=== PATIENT | female | born 1960 | race Caucasian/White ===

== ENCOUNTER → 2018-08-03 07:40 | Outpatient (CLI) | payer MEDICAID, SELFPAY ==
[2018-08-03 09:02] LABS: Erythrocyte Sedimentation Rate 15 mm/hr (0-30)
[2018-08-03 09:03] LABS: Absolute Lymphocyte Count 2.06 X10^3/ul (0.83-4.51); Absolute Neutrophil Count 2.6 X10^3/uL (2.0-7.7); Basophil# 0.01 X10^3/uL; Basophil% 0.2 % (0-1); Eosinophil# 0.23 X10^3/uL; Eosinophils% 4.4 % (0-5); Hematocrit 42.3 % (37-47); Hemoglobin 13.9 g/dl (12.0-15.0); Lymphocyte # 2.06 X10^3/ul (4.0); Lymphocyte % 39.3 % (19-41); Mean Corp Hgb Conc 32.9 g/gl (32-36); Mean Corpuscular Hgb 30.2 pg (27.0-32.0); Mean Platelet Vol. 9.7 fl (6.2-12.0); Monocyte# 0.36 X10^3/uL; Monocyte% 6.9 % (0-10); Neutrophil # 2.58 X10^3/uL (2.7-7.7); Neutrophil % 49.2 % (47-70); Platelet Count 296 K/mm3 (150-450); RBC Distribution Width CV 12.8 % (11.6-14.6); RBC Distribution Width SD 42.9 fl (35.1-43.9); White Blood Count 5.2 K/mm3 (4.4-11.0)
[2018-08-03 09:04] LABS: POSITIVE COUNT NO; POSITIVE DIFFERENTIAL NO; POSITIVE MORPHOLOGY NO
[2018-08-03 09:07] LABS: Hemoglobin A1c 5.4 % (4.2-6.3)
[2018-08-03 09:20] LABS: T3 Total - Triiodothyronine 1.12 ng/mL (0.6-1.81); Vitamin B12 1447 pg/mL (211-911); Vitamin D,25 Hydroxy 41.9 ng/mL (29.95-100.01)
[2018-08-03 09:23] LABS: ALB/GLOB Ratio 1.2 RATIO (0.9-2.4); AST(SGOT) 20 U/L (15-37); Alanine Aminotransfer ALT/SGPT 36 U/L (13-56); Albumin, Serum 4.1 g/dL (3.2-5.0); Alkaline Phosphatase 116 U/L (45-117); Anion Gap 4 (5-15); BUN 12 mg/dL (7-18); BUN/Creat Ratio 15.6 RATIO (10-20); CRP < 2.90 mg/L (0.0-3.0); Calcium,Total 9.4 mg/dL (8.5-10.1); Chloride 106 mmol/L (98-107); Cholesterol 206 mg/dL (200); Creatinine, Serum 0.77 mg/dL (0.55-1.02); EST Glomerular Filtration Rate 81 mL/min (>60); Est Glom Filt Rate - Afr Amer 98 mL/min (>60); Globulin 3.5 g/dL (2.2-4.2); Glucose 83 mg/dL (74-106); High Density Lipoprotein 64 mg/dL; Iron 123 ug/dL (50-170); Potassium 4.1 mmol/L (3.5-5.1); Protein, Total 7.6 g/dL (6.4-8.2); Sodium Level 142 mmol/L (136-145); T4 Free Direct 0.97 ng/dL (0.76-1.46); Thyroid Stim Hormone (TSH) 0.95 uIU/mL (0.358-3.74); Triglycerides 139 mg/dL; Very Low Density Lipoprotein 28 mg/dL (5-40)
--- OUTSIDE RECORDS SUMMARY | 2018-09-28 01:23 | XMS RPT_ITS ---
:1960 Author Organization [facility] Care Team Providers Name Role Phone Malys, Phyllis Attending Unavailable Malys, Phyllis Primary Care Unavailable Malys, Phyllis Referring Unavailable Malys, Phyllis Attending Unavailable Malys, Phyllis Referring Unavailable Malys, Phyllis Primary Care Unavailable PROBLEMS PROBLEMS DATE TYPE CONDITION / CODE ATTENDING STATUS SOURCE 08/03/2018 Unknown M25.50 - Pain in Malys, Phyllis Active [facility] unspecified joint Community / M25.50(ICD-10) Hospital Repository 08/03/2018 Unknown E61.1 - Iron Malys, Phyllis Active [facility] deficiency / Community E61.1(ICD-10) Hospital Repository 08/03/2018 Unknown R53.83 - Other Malys, Phyllis Active [place] fatigue / Community R53.83(ICD-10) Hospital Repository 08/03/2018 Unknown E55.9 - Vitamin D Malys, Phyllis Active [place] deficiency, Community unspecified / Hospital E55.9(ICD-10) Repository 08/03/2018 Unknown R63.1 - Malys, Phyllis Active [facility] Polydipsia / Community R63.1(ICD-10) Hospital Repository 08/03/2018 Unknown R35.8 - Other Malys, Phyllis Active [place] polyuria / Community R35.8(ICD-10) Hospital Repository 08/03/2018 Unknown E78.5 - Malys, Phyllis Active [facility] Hyperlipidemia, Community unspecified / Hospital E78.5(ICD-10) Repository 08/03/2018 Unknown D64.9 - Anemia, Malys, Phyllis Active [facility] unspecified / Community D64.9(ICD-10) Hospital Repository 08/03/2018 Unknown 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, [address] CBC W/DIFF, AUTOMATED Collected: 08/03/2018 Status: F Source: [place] 7:47 AM [facility] REPOSITORY TYPE CODE TESTS RESULT OUT OF RANGE REFERENCE UNITS LAB L100.1000 4.4-11.0 K/mm3 Normal WBC 5.2 LAB L100.1200 4.2-5.4 M/mm3 Normal RBC 4.60 LAB L100.1300 12.0-15.0 g/dl Normal HGB 13.9 LAB L100.1400 37-47 % Normal HCT 42.3 LAB L100.1500 81-99 fL Normal MCV 92.0 LAB L100.1600 27.0-32.0 pg Normal MCH 30.2 LAB L100.1700 32-36 g/gl Normal MCHC 32.9 LAB L100.1810 11.6-14.6 % Normal RDW CV 12.8 LAB L100.1820 35.1-43.9 fl Normal RDW SD 42.9 LAB L100.1900 150-450 K/mm3 Normal PLT 296 LAB L100.2000 6.2-12.0 fl Normal MPV 9.7 LAB L100.2100 47-70 % Normal NEUT% 49.2 LAB L100.2200 19-41 % Normal LY% 39.3 LAB L100.2300 0-10 % Normal MONO% 6.9 LAB L100.2400 0-5 % Normal EO% 4.4 LAB L100.2500 0-1 % Normal BASO% 0.2 LAB L100.2550 0.0-0.9 % Normal IM GRAN % 0.000 Result Comment: IG% - Immature Granulocytes (promyelocytes, myelocytes and metamyelocytes) > 1% indicates that a LEFT SHIFT is Present. LAB L100.2620 2.0-7.7 X10 3/uL Normal Absolute Neut 2.6 LAB L100.2720 0.83-4.51 X10 3/ul Normal Absolute Lymph 2.06 Performed By: #### L101.9900, L100.0100 #### [facility] [address] [place], [address] HEMOGLOBIN A1C Collected: 08/03/2018 Status: F Source: [place] 7:47 AM [facility] REPOSITORY TYPE CODE TESTS RESULT OUT OF RANGE REFERENCE UNITS LAB L501.9985 4.2-6.3 % Normal HGB A1C 5.4 Performed By: #### L501.9985 #### [facility] [address] [place], [address] T3 TOTAL - TRIIODOTHYRONINE Collected: 08/03/2018 Status: F Source: [place] 7:47 AM [facility] REPOSITORY TYPE CODE TESTS RESULT OUT OF RANGE REFERENCE UNITS LAB L501.9186 0.6-1.81 ng/mL Normal T3 Total 1.12 Performed By: #### L501.9186, L503.0105, L506.1000 #### [facility] [address] [place], [address] VITAMIN B12 Collected: 08/03/2018 Status: F Source: [place] 7:47 AM [facility] REPOSITORY TYPE CODE TESTS RESULT OUT OF REFERENCE UNITS RANGE LAB L503.0105 211-911 pg/mL High Vitamin B12 1447 Performed By: #### L501.9186, L503.0105, L506.1000 #### [facility] [address] [place], [address] VITAMIN D,25 HYDROXY Collected: 08/03/2018 Status: F Source: [place] 7:47 AM [facility] REPOSITORY TYPE CODE TESTS RESULT OUT OF RANGE REFERENCE UNITS LAB L506.1000 29.95-100.01 ng/mL Normal Vitamin D 41.9 25-OH Result Comment: Vitamin D 25(OH) Status Range Deficiency <20 ng/mL (50nmol/L) Insuffciency 20 - 30 ng/mL (50 - 75 nmol/L) Sufficiency 30 - 100 ng/mL (75 - 250 nmol/L) Toxicity >100 ng/mL (>250 nmol/L) Performed By: #### L501.9186, L503.0105, L506.1000 #### [facility] [address] [place], [address] COMPREHENSIVE METABOLIC Collected: 08/03/2018 Status: F Source: [place] [facility] 7:47 AM [facility] REPOSITORY TYPE CODE TESTS RESULT OUT OF RANGE REFERENCE UNITS LAB L501.0100 74-106 mg/dL Normal GLU 83 Result Comment: Please note revised GLUCOSE reference range effective 2017. LAB L501.1000 7-18 mg/dL Normal BUN 12 LAB L501.1100 0.55-1.02 mg/dL Normal CREAT,SERUM 0.77 Result Comment: The validity of the calculated GFR AND GFRAA in patients over 70 years has not been determined. Clinical correlation is essential. LAB L501.1110 >60 mL/min Normal EST GFR 81 Result Comment: Non- GFR Calc LAB L501.1115 >60 mL/min Normal EST GFR - AA 98 Result Comment: GFR Calc LAB L501.1300 10-20 RATIO Normal BUN/CRE 15.6 LAB L501.1500 6.4-8.2 g/dL T Normal PROT 7.6 LAB L501.1800 3.2-5.0 g/dL Normal ALB 4.1 LAB L501.1950 2.2-4.2 g/dL Normal GLOB 3.5 LAB L501.2000 0.9-2.4 RATIO Normal A/G 1.2 LAB L501.2200 8.5-10.1 mg/dL CA Normal 9.4 LAB L501.4100 15-37 U/L Normal AST 20 LAB L501.4305 45-117 U/L Normal ALK P 116 LAB L501.4405 13-56 U/L Normal ALT 36 LAB L501.4600 0.20-1.00 mg/dL T Normal BILI 0.40 LAB L501.5300 136-145 mmol/L NA Normal 142 LAB L501.5600 3.5-5.1 mmol/L K Normal 4.1 LAB L501.5900 98-107 mmol/L CL Normal 106 LAB L501.6100 21.0-32.0 mmol/L Normal CO2 32.0 LAB L501.6200 5-15 Low GAP 4 Performed By: #### L500.4050, L500.4100, L501.6710, L501.9520, L503.6150, L506.0400 #### [facility] [address] [place], [place], [id number] LIPID PROFILE Collected: 08/03/2018 Status: F Source: [place] 7:47 AM [facility] REPOSITORY TYPE CODE TESTS RESULT OUT OF RANGE REFERENCE UNITS LAB L501.4900 200 mg/dL High CHOL 206 Result Comment: <200 mg/dL Desirable 200-240 mg/dL Borderline >240 mg/dL High Risk LAB L501.5000 mg/dL Normal TRIG 139 Result Comment: The drugs N-Acetylcysteine and Metamizole may falsely depress this assay. Serum Triglycerides Reference Interval Normal <150 mg/dL Borderline high 150 - 199 mg/dL High 200 - 499 mg/dL Very High > or = 500 mg/dL LAB L501.6400 mg/dL Normal HDL 64 Result Comment: The drugs N-Acetylcysteine and Metamizole may falsely depress this assay. Reference Range HDL <40 mg/dL Low HDL Cholesterol HDL >or= 60 mg/dL High HDL Cholesterol LAB L501.6500 0-130 mg/dL Normal LDL 114 LAB L501.6600 5-40 mg/dL Normal VLDL 28 Performed By: #### L500.4050, L500.4100, L501.6710, L501.9520, L503.6150, L506.0400 #### [facility] [address] [place], [place], [id number] CRP Collected: 08/03/2018 Status: F Source: [place] 7:47 AM [facility] REPOSITORY TYPE CODE TESTS RESULT OUT OF RANGE REFERENCE UNITS LAB L501.6710 0.0-3.0 mg/L Normal < 2.90 C-REACTIVE PROT Result Comment: C-Reactive Protein (CRP) provides useful information for the diagnosis, therapy and monitoring of inflammatory processes and associated diseases. For the evaluation of Relative Risk for Cardiovascular Disease, a High Sensitivity CRP (HSCRP) should be ordered. Performed By: #### L500.4050, L500.4100, L501.6710, L501.9520, L503.6150, L506.0400 #### [facility] [address] [place], [place], [address] THYROID STIM HORMONE Collected: 08/03/2018 Status: F Source: [place] (TSH) 7:47 AM [facility] REPOSITORY TYPE CODE TESTS RESULT OUT OF RANGE REFERENCE UNITS LAB L501.9520 0.358-3.74 uIU/mL Normal TSH 0.95 Performed By: #### L500.4050, L500.4100, L501.6710, L501.9520, L503.6150, L506.0400 #### [facility] [address] [place], [place], [address] IRON Collected: 08/03/2018 Status: F Source: [place] 7:47 AM [facility] REPOSITORY TYPE CODE TESTS RESULT OUT OF RANGE REFERENCE UNITS LAB L503.6150 50-170 ug/dL Normal IRON 123 Performed By: #### L500.4050, L500.4100, L501.6710, L501.9520, L503.6150, L506.0400 #### [facility] [address] [place], [place], [address] T4 FREE DIRECT Collected: 08/03/2018 Status: F Source: [place] 7:47 AM [facility] REPOSITORY TYPE CODE TESTS RESULT OUT OF RANGE REFERENCE UNITS LAB L506.0400 0.76-1.46 ng/dL Normal T4 FREE 0.97 DIRECT Performed By: #### L500.4050, L500.4100, L501.6710, L501.9520, L503.6150, L506.0400 #### [facility] [address] [place], [place], [address] ABDOMEN/PELVIS WITH Observed: 09/14/2017 Status: F Source: [place] CONTRAST 8:56 AM [facility] REPOSITORY [facility] [address] [place] [address] Abdomen/Pelvis WITH Contrast MR#: [id number] Acct: [id number] Name: FLORENTIN INGRAM Rep #: [id number] : 1960 F 56 From: Mati Helms MD PCP: Phyllis Lujan DO Status: REG CLI Study: Abdomen/Pelvis WITH Contrast Date of Exam: 09/14/17 Exam# [id number] Ordering Dr: Phyllis Lujan DO STUDY: CT ABDOMEN AND PELVIS WITH CONTRAST REASON FOR EXAM: Female, 56 years old. Evaluate for obstruction or narrowing of colon. Pain. RADIATION DOSAGE (If Supplied By Facility): CTDIvol = ( 15.39 ) mGy, DLP = ( 1055.55 ) mGycm TECHNIQUE: Transaxial images were obtained from the dome of the diaphragm to the symphysis pubis without oral contrast. 100CC ml of Isovue 300 contrast was administered. Sagittal and coronal images were reconstructed. Individualized dose optimization techniques were used for this CT. COMPARISON: None. FINDINGS: The visualized lung bases are clear. The visualized portions of the heart and pericardium are within normal limits. There are no calcified gallstones present. The liver is within normal limits. There are no suspicious hepatic lesions. The spleen is normal in size. The pancreas is within normal limits. The adrenal glands are within normal limits. There are no obstructing renal stones. There is no hydronephrosis. There are no focal renal lesions. The patient is status post gastric bypass. There is no bowel obstruction or inflammation. There is a large amount of stool in the colon, consistent with constipation. The appendix is visualized and appears normal. The aorta is normal in caliber. There is no abdominal or pelvic free air, free fluid, fluid collection or lymphadenopathy. There are no destructive osseous lesions. CT/Abdomen/Pelvis WITH Contrast IMPRESSION: No bowel obstruction or inflammation. Normal appendix. Constipation. Please note that this study does not exclude colon cancer. Electronically Signed: Mati Helms, at 23:56 EST Tel , Service support , CC: Phyllis Lujan DO Light Cleaner: Signed ALLERGIES ALLERGIES DATE TYPE / CODE NAME / CODE REACTION SEVERITY SOURCE 06/23/2016 Drug ibuprofen/F0 HARD TIME Unknown [facility] Allergy/4160 [id number](RXN BREATHING [facility] 28705(SNOMED ORM) Repository CT) ENCOUNTERS ENCOUNTERS ADMIT/DISCHARGE ACCOUNT ADMITTING ENCOUNTER LOCATION SOURCE NUMBER CLASS 08/03/2018 [id number] Ambulatory [place] [facility] ing:LAB Repository 09/14/2017 [id number] Ambulatory [place] 2 [facility] ing:CT Repository PAYERS PAYERS ENCOUNTER GUARANTOR PAYER SUBSCRIBER SOURCE 08/03/2018 NEIL A Primary FLORENTIN Uribeoster [id number] Insurance:[employer] TOOLEYDOB: Community [place] y [place]: [id number] [id number] Repository [id number]: 330) Date:[phone] () [address] [place] [id number]: 08/03/2018 Secondary NOT GIVENUNK [facility] Insurance:SELF PAY [facility] Number: Effective Repository Date:2018-08-03 09/14/2017 Neil Primary FLORENTIN Nagel [id number] Hi Insurance:[place] TOOLEYDOB: [facility] [place], y Number: [id number] [address]Txx: [id number] Repository Date:[id number] [address] () [address] [place] [address]ZU: 09/14/2017 Secondary NOT GIVENUNK [place] Insurance:SELF PAY [facility] Number: Effective Repository Date:2017-09-11
== END ==
PROVIDERS: Family Provider Family Medicine; PCP Family Medicine; Referring Provider Family Medicine; Visit Provider Family Medicine
DX: M25.50 Pain in unspecified joint (principal); E61.1 Iron deficiency; R53.83 Other fatigue; E55.9 Vitamin D deficiency, unspecified; R63.1 Polydipsia; R35.8 Other polyuria; E78.5 Hyperlipidemia, unspecified; D64.9 Anemia, unspecified; E01.0 Iodine-deficiency related diffuse (endemic) goiter
CPT/HCPCS: 36415; 80053; 80061; 82306; 82607; 83036; 83540; 84439; 84443; 84480; 85025; 85652; 86140

== ENCOUNTER → 2018-10-02 15:11 | Outpatient (CLI) | payer MEDICAID, SELFPAY ==
--- NOTE | 2018-10-02 15:15 | BI_ITS ---
MAMMOGRAPHY - BILATERAL SCREENING REASON FOR EXAM: Female, 58 years old. Routine annual screening examination. PERTINENT HISTORY: Non-contributory. TECHNIQUE: Digital bilateral breast manan (3D mammographic acquisition) in the CC and MLO projections. 2-D mediolateral oblique (MLO) and craniocaudad (CC) views of both breasts were obtained. CAD: Full Field Digital Mammography with Computer Added Detection was performed. COMPARISON: Comparison is made with prior study dated July 12, 2017 and June 14, 2016. FINDINGS: Breast Composition: There are scattered areas of fibroglandular density. There are no dominant masses or suspicious calcifications. No other significant abnormalities are identified. There has been no significant change since the prior study. BI/SCREENING MAMM (CAD), BILAT IMPRESSION: Stable bilateral screening mammogram. Yearly follow-up mammogram recommended. (A) ASSESSMENT CATEGORY: BIRADS Category 1: Negative. A letter regarding these results will be sent to the patient by the facility within 30 days. Approximately 10% of breast cancers are not detected by mammography. A normal mammogram should not delay biopsy of a clinically suspicious abnormality. [id number] Electronically Signed: Ludwin Miranda MD at 8:56 EST , Service support ,
--- NOTE | 2018-10-02 15:16 | BD_ITS ---
STUDY: DUAL ENERGY X-RAY ABSORPTIOMETRY / DXA REASON FOR EXAM: Female, 58 years old. The patient is postmenopausal. No loss of height. TECHNIQUE: Bone Mineral Density (BMD) measurements of lumbar spine and bilateral hips were obtained. COMPARISON: Comparison is made with prior study dated June 14, 2016. FINDINGS: Lumbar Spine (L1-L4): g/cm2 (1.066) / T-score (-0.9) / Z-score (0.3) Findings are suggestive of normal bone density with a low fracture risk. Left Femur Total: g/cm2 (0.818) / T-score (-1.5) / Z-score (0.6) Left Femoral Neck: g/cm2 (0.828) / T-score (-1.5) / Z-score (-0.3) Right Femur Total: g/cm2 (0.808) / T-score (-1.6) / Z-score (-0.7) Right Femoral Neck: g/cm2 (0.837) / T-score (-1.4) / Z-score (-0.2) The T-Scores on the most recent prior examination were: Lumbar Spine (L1-L4): There has been worsening of bone density since the previous examination. Left Femur Total: which represents a worsening of 0.2%. Right Femur Total: which represents a worsening of 3.5%. BD/Dexa Bone Density Study IMPRESSION: The patient is considered osteopenic as outlined below according to World Rob Organization (WHO) criteria with a moderate fracture risk. There has been worsening of bone density since the previous examination. Reference Information: The T-score is the number of standard deviations above or below the standard which is normal for young adults at their peak bone mineral density. The World Health Organization (WHO) interprets the T-scores as follows: Above -1 Normal bone density Between -1 and -2.5 Osteopenia Equal to / or below -2.5 Osteoporosis As a practical clinical guideline, osteopenia may be graded as follows: Mild -1 through -1.5 Moderate -1.6 through -2.0 Severe -2.1 through -2.4 The Z-score is the number of standard deviations above or below age-matched controls. A Z-score of less than -1.5 would be considered abnormal. References: 1. NIH Osteoporosis and Related Bone Diseases http://www.osteo.org 2. International Society for Clinical Densitometry http://www.iscd.org 3. National Osteoporosis Foundation http://www.nof.org Electronically Signed: Ludwin Miranda MD at 10:19 EST , Service support ,
== END ==
PROVIDERS: Family Provider Family Medicine; PCP Family Medicine; Referring Provider Family Medicine; Visit Provider Family Medicine
DX: Z12.31 Encounter for screening mammogram for malignant neoplasm of breast (principal); M81.0 Age-related osteoporosis without current pathological fracture
CPT/HCPCS: 77063; 77067; 77080

== ENCOUNTER → 2018-10-18 09:04 | Outpatient (CLI) | payer MEDICAID, SELFPAY ==
[2018-10-18 12:49] LABS: Thyroid Stim Hormone (TSH) 0.58 uIU/mL (0.358-3.74)
[2018-10-18 13:03] LABS: T3 Total - Triiodothyronine 0.98 ng/mL (0.6-1.81)
== END ==
PROVIDERS: Family Provider Family Medicine; PCP Family Medicine; Visit Provider Family Medicine
DX: E03.9 Hypothyroidism, unspecified (principal)
CPT/HCPCS: 36415; 84439; 84443; 84480

== ENCOUNTER → 2019-02-01 | Outpatient (CLI) | payer MEDICAID, SELFPAY ==
[2019-02-01 13:03] LABS: Free T3 2.5 pg/mL (2.18-3.98); T4 Free Direct 1.04 ng/dL (0.76-1.46); Thyroid Stim Hormone (TSH) 0.57 uIU/mL (0.358-3.74)
== END | disposition home or self-care (01) ==
LOC: LAB.FUTURE 09:49
PROVIDERS: Family Provider Family Medicine; PCP Family Medicine; Visit Provider Family Medicine
DX: E03.9 Hypothyroidism, unspecified (principal)
CPT/HCPCS: 36415; 84439; 84443; 84481

== ENCOUNTER → 2019-04-02 | Outpatient (CLI) | payer MEDICAID, SELFPAY ==
[2019-04-02 13:12] LABS: Free T3 2.7 pg/mL (2.18-3.98); T4 Free Direct 1.01 ng/dL (0.76-1.46); Thyroid Stim Hormone (TSH) 0.39 uIU/mL (0.358-3.74)
== END | disposition home or self-care (01) ==
LOC: LAB.FUTURE 09:11
PROVIDERS: Family Provider Family Medicine; PCP Family Medicine; Visit Provider Family Medicine
DX: E03.9 Hypothyroidism, unspecified (principal)
CPT/HCPCS: 36415; 84439; 84443; 84481

== ENCOUNTER → 2019-04-15 | Outpatient (CLI) | payer MEDICAID, SELFPAY ==
--- NOTE | 2019-04-15 12:37 | RAD_ITS ---
STUDY: X-RAY - PELVIS AND BILATERAL HIPS REASON FOR EXAM: Female, 58 years old. Bilateral hip pain. Arthritis. TECHNIQUE: 5 views of the pelvis and hips were obtained. COMPARISON: None. FINDINGS: There is a non-specific bowel gas pattern. Normal visualized soft tissue structures. Normal bilateral iliac wings, sacroiliac joints and visualized sacrum. Normal bilateral superior and inferior pubic rami. Normal pubic symphysis. Normal bilateral ischial tuberosities. Normal visualized right femoral head. Normal right acetabulum. Normal right hip joint. Normal visualized left femoral head. Normal left acetabulum. Normal left hip joint. RAD/Hips B/L min 2 views w/ Pelvis IMPRESSION: Normal x-ray examination of the pelvis and bilateral hips. Electronically Signed: Bran Mclaughlin MD at 2:58 EDT , Service support ,
== END | disposition home or self-care (01) ==
LOC: RAD 12:36
PROVIDERS: Family Provider Family Medicine; PCP Family Medicine; Referring Provider Family Medicine; Visit Provider Family Medicine
DX: M25.551 Pain in right hip (principal); M25.552 Pain in left hip
CPT/HCPCS: 73521

== ENCOUNTER → 2019-07-03 10:35 | Outpatient (CLI) | payer MEDICAID, SELFPAY ==
[2019-07-03 13:00] LABS: Free T3 2.6 pg/mL (2.18-3.98); T4 Free Direct 0.94 ng/dL (0.76-1.46); Thyroid Stim Hormone (TSH) 0.68 uIU/mL (0.358-3.74)
== END ==
PROVIDERS: Family Provider Family Medicine; PCP Family Medicine; Visit Provider Family Medicine
DX: E03.9 Hypothyroidism, unspecified (principal)
CPT/HCPCS: 36415; 84439; 84443; 84481

== ENCOUNTER → 2019-07-23 10:05 | Outpatient (CLI) | payer MEDICAID, SELFPAY ==
--- NOTE | 2019-07-23 10:20 | MRI_ITS ---
STUDY: MRI LUMBAR SPINE WITHOUT CONTRAST REASON FOR EXAM: Female, 58 years old. Leg numbness. Back pain. TECHNIQUE: Standardized fat and water weighted pulse sequences were obtained in the sagittal and axial planes. COMPARISON: X-ray dated September 02, 2016. FINDINGS: Lumbar lordosis preserved. No significant scoliosis. Conus medullaris terminates normally at the L1 level. No acute fracture. No dislocation. No bone destruction. Multiple scattered hemangiomas (sagittal image 9 series 2). Normal retroperitoneum. Normal aorta. Normal paraspinal muscles. Sacrum intact. T12-L1: Normal endplates. Normal disc height, hydration and morphology. Normal bilateral facet joints. Normal central canal and bilateral lateral recesses. Normal bilateral intervertebral neural foramina. L1-2: Normal endplates. Normal disc height, hydration and morphology. Normal bilateral facet joints. Normal central canal and bilateral lateral recesses. Normal bilateral intervertebral neural foramina. L2-3: Normal endplates. Mild disc desiccation. Normal bilateral facet joints. Normal central canal and bilateral lateral recesses. Normal bilateral intervertebral neural foramina. L3-4: Mild endplate spondylosis. Central disc protrusion (axial image 13 series 5) with moderate central canal narrowing. Facet joint arthrosis. Bilateral lateral recess narrowing with impingement, left greater than right. Neural foraminal narrowing without impingement. L4-5: Mild endplate spondylosis. Disc bulge, annular fissure asymmetric to the left, with mild central canal narrowing. Facet joint arthrosis. Left lateral recess narrowing with impingement. Neural foraminal narrowing without impingement. L5-S1: Mild/moderate endplate spondylosis. Disc desiccation. Facet joint arthrosis. Normal central canal and bilateral lateral recesses. Neural foraminal narrowing without impingement. Vacuum phenomenon. MRI/Spine Lumbar (Routine) IMPRESSION: Multilevel intervertebral disc disease with central canal narrowing at L3-4 and L4-5 (protrusion at L3-4) Multilevel lateral recess narrowing with impingement of the bilateral descending L4 and left L5 nerve roots Multilevel neural foraminal narrowing without impingement Mild osteoarthritis at L3-4 through L5-S1 Electronically Signed: Simeon Mann DO at 11:50 EST Tel , Service support ,
== END ==
PROVIDERS: Family Provider Family Medicine; PCP Family Medicine; Referring Provider Family Medicine; Visit Provider Family Medicine
DX: M54.16 Radiculopathy, lumbar region (principal)
CPT/HCPCS: 72148

== ENCOUNTER → 2019-10-03 09:34 | Outpatient (CLI) | payer MEDICAID, SELFPAY ==
--- NOTE | 2019-10-03 09:37 | BI_ITS ---
MAMMOGRAPHY - BILATERAL SCREENING REASON FOR EXAM: Female, 59 years old. Routine annual screening examination. PERTINENT HISTORY: Non-contributory. TECHNIQUE: Digital bilateral breast farrukh (3D mammographic acquisition) in the CC and MLO projections. 2-D mediolateral oblique (MLO) and craniocaudad (CC) views of both breasts were obtained. CAD: Full Field Digital Mammography with Computer Added Detection was performed. COMPARISON: Comparison is made with prior study dated March 02, 2019 and July 12, 2017. FINDINGS: Breast Composition: There are scattered areas of fibroglandular density. There are no dominant masses or suspicious calcifications. No other significant abnormalities are identified. There has been no significant change since the prior study. BI/SCREEN MAMM (CAD) W/FARRUKH BILAT IMPRESSION: Stable bilateral screening mammogram. Yearly follow-up mammogram recommended. (A) ASSESSMENT CATEGORY: BIRADS Category 1: Negative. A letter regarding these results will be sent to the patient by the facility within 30 days. Approximately 10% of breast cancers are not detected by mammography. A normal mammogram should not delay biopsy of a clinically suspicious abnormality. [id number] Electronically Signed: Ludwin Miranda, at 10:29 EST , Service support ,
== END ==
PROVIDERS: Family Provider Family Medicine; PCP Family Medicine; Referring Provider Family Medicine; Visit Provider Family Medicine
DX: Z12.31 Encounter for screening mammogram for malignant neoplasm of breast (principal)
CPT/HCPCS: 77063; 77067

== ENCOUNTER → 2019-10-09 08:04 | Outpatient (CLI) | payer MEDICAID, SELFPAY ==
[2019-10-09 12:42] LABS: Absolute Lymphocyte Count 1.42 X10^3/uL (0.83-4.51); Absolute Neutrophil Count 2.3 X10^3/uL (2.0-7.7); Basophil# 0.04 X10^3/uL; Basophil% 0.9 % (0-1); Eosinophil# 0.29 X10^3/uL; Eosinophils% 6.7 % (0-5); Hematocrit 37.4 % (37-47); Hemoglobin 11.9 g/dL (12.0-15.0); Lymphocyte # 1.42 X10^3/ul (4.0); Lymphocyte % 32.7 % (19-41); Mean Corp Hgb Conc 31.8 g/dL (32-36); Mean Corpuscular Hgb 30.4 pg (27.0-32.0); Mean Corpuscular Volume 95.7 fL (81-99); Mean Platelet Vol. 10.5 fl (6.2-12.0); Monocyte# 0.34 X10^3/uL; Monocyte% 7.8 % (0-10); NRBC Flagged by Analyzer 0 % (0-5); Neutrophil # 2.25 X10^3/uL (2.7-7.7); Neutrophil % 51.9 % (47-70); Platelet Count 300 K/mm3 (150-450); RBC Distribution Width CV 12.6 % (11.6-14.6); RBC Distribution Width SD 43.9 fl (35.1-43.9); Red Blood Count 3.91 M/mm3 (4.2-5.4); White Blood Count 4.3 K/mm3 (4.4-11.0)
[2019-10-09 13:02] LABS: ALB/GLOB Ratio 1.2 RATIO (0.9-2.4); AST(SGOT) 36 U/L (15-37); Alanine Aminotransfer ALT/SGPT 70 U/L (12-78); Albumin, Serum 3.6 g/dL (3.4-5.0); Alkaline Phosphatase 101 U/L (50-136); Anion Gap 4 (5-15); BUN 17 mg/dL (7-18); BUN/Creat Ratio 20.3 RATIO (10-20); Calcium,Total 9.2 mg/dL (8.5-10.1); Chloride 110 mmol/L (98-107); Cholesterol 198 mg/dL (200); Creatinine, Serum 0.84 mg/dL (0.55-1.20); EST Glomerular Filtration Rate 73 mL/min (>60); Est Glom Filt Rate - Afr Amer 89 mL/min (>60); Free T3 2.1 pg/mL (2.18-3.98); Globulin 3.1 g/dL (2.3-3.5); Glucose 79 mg/dL (70-110); High Density Lipoprotein 75 mg/dL; Potassium 4.1 mmol/L (3.5-5.1); Protein, Total 6.7 g/dL (6.4-8.2); Sodium Level 143 mmol/L (136-145); T4 Free Direct 0.97 ng/dL (0.76-1.46); Thyroid Stim Hormone (TSH) 1.01 uIU/mL (0.358-3.74); Triglycerides 89 mg/dL; Very Low Density Lipoprotein 18 mg/dL (5-40)
== END ==
PROVIDERS: PCP Family Medicine; Visit Provider Family Medicine
DX: R53.83 Other fatigue (principal); E03.9 Hypothyroidism, unspecified; E78.5 Hyperlipidemia, unspecified; Z51.81 Encounter for therapeutic drug level monitoring
CPT/HCPCS: 36415; 80053; 80061; 84439; 84443; 84481; 85025

== ENCOUNTER 2019-10-17 11:30 | Outpatient (RCR) | payer MEDICAID, SELFPAY ==
--- NOTE | 2019-10-04 16:03 | HP.PTEVAL ---
Patient's Visit Information FLORENTIN INGRAM is a 59 year old F referred to Physical Therapy by MARKO Shane with a diagnosis of LUMBAR STENOSIS WITH NEUROGENIC CLAUDICATION. Date of Evaluation: 10/04/19 Physical Therapist: Danilo Nicholson, PT, Cert MDT, OCS - Visit Plan Frequency: 2x /Week Duration: 4 Weeks Plan: S/P LUMBAR SURGEY 08/21/19 OKAY WEAN BRACE ,PROGRESS LUMBAR ROM MARKELL. PT INTERVENTION DLS ABD/BACK,POSTURAL EX'S,LE FLEXABLITY,BLE STRENGTHENING ,PROGRESS ROM MARKELL - Subjective Findings: This 59 y/o female presents to physical therapy with lumbar stenosis. Patient underwent s/p bilateral posterior microdisectomy L3-4,L4-5 and micodisectomy on 08/21/[address] Minaya [facility] .Patient d/c 08/22/19 with FWW and lumbar brace ,BLT,no lifting more than 5#. Prior to surgery bilateral leg symptoms with parathesia to feet. Pateint MRI showed stenosis,HNP. Patient has prior PT many years ago. Currently,pain right upper thigh /lateral hip ,stabbing/burning pain. Symptoms laying on side going to bed supine-sit. Patient had trauma falling down hector.Aleviating factors moving around,walking. Bowel/bladder -. Coughing/sneezing-. Sleeping affects from surgery. Denies parathesia/tingling. MEDS gabepetin,vicodin. Patient pain affects ADLS' ,housework chores . Pateint surgey affects QOL but improving. SOCIAL: . VOCATION: reired - Pain Bilateral Back Pain Intensity (Out of 10): 0 Pain Intensity Range: 10 Right Hip Pain Intensity (Out of 10): 0 Pain Intensity Range: 10 - Objective POSTURE: mild foward posture. NEURO: denies parathesia/tingling ,reflexes L3-4,L4-5,L5-S1 1/3. INSCION: well approximate. PALAPTION: mild tender paraspinals. GAIT: reciprocal pattern. MMT: quads/hams 3+/5 R ,L 4-/5,hip flexion 4-/5 L, R 3+/5,abd 4-/5 R,L 3+/5,ankle DF L 4-/5,R 4/5. LUMBAR ROM: flexion min loss,extension mod loss,side glides min/mod loss. FLEXABLITY: hams min tight - Special Tests L/S Slump test left side: Negative L/S Slump test right side: Negative L/S Left Straight Leg Raise: Negative L/S Right Straight Leg Raise: Negative Lumbar Standing: Flexion - Mechanical Response: No effect Lumbar Standing: Flexion - Symptoms During Testing: No effect Lumbar Standing: Flexion - Symptoms After Testing: No effect Lumbar Standing: Extension - Mechanical Response: No effect Lumbar Standing: Extension - Symptoms During Testing: No effect Lumbar Standing: Extension - Symptoms After Testing: No effect - Goals Goal 1:: Patient to be Independant with HEP. Goal Time Frame: 4-6 Weeks Goal 2:: Improve posture/body mechanics for ADL's. Goal Time Frame: 4-6 Weeks Goal 3:: Patient decrease pain by 70% or > to improve function with ADL'S Goal Time Frame: 4-6 Weeks Goal 4:: Patient to improve lumbar ROM for function of recovery Goal Time Frame: 4-6 Weeks Goal 5:: Patient increase right leg 4-/5,left leg 4/5 to improve function and ADL'S Goal Time Frame: 4-6 Weeks Goal 6:: Patient improve LFES score by 5-8 points or > to improve QOL Goal Time Frame: 4-6 Weeks - Rehabilitation Potential Physical Therapy Diagnosis: This patient under s/p lumbar microdcompresssion ,microdisectomy L3-4,L4-5 with pain right hip ,decrease ROM lumbar ,strength right leg impairs function and ADLS',thus benifit from PT Rehabilitation Potential: Good - Anticipated Interventions Patient/Client Instruction: Educate patient on: Condition, Plan of Care For the Purpose of:: To decrease pain, To increase ROM, To improve muscle performance and motor function, To improve ability to perform ADL's, To increase tolerance to activity/condition/position, To improve performance and independence with ADL's, To improve ability of physical actions for home/community/work/leisure, To improve health of tissue, To decrease soft tissue restriction, To increase flexibility/ROM, To reduce risk of recurrence, To improve ability to perform tasks related to life management Therapeutic Exercise to Include: Strength training, Body mechanics, Postural training, Flexibilty training, Dynamic Lumbar Stabilization Comment: BLE For the Purpose of:: To decrease pain, To increase ROM, To improve muscle performance and motor function, To improve ability to perform ADL's, To increase tolerance to activity/condition/position, To improve ability of physical actions for home/community/work/leisure, To improve health of tissue, To increase flexibility/ROM, To reduce risk of recurrence, To improve ability to perform tasks related to life management Cryotherapy (ice pack, ice massage): Yes Thermo therapy (hot pack): Yes For the Purpose of:: To decrease pain, To improve nutrient delivery to tissue, To increase oxygenation perfusion Thank you for the opportunity to evaluate your patient. For Medicare and Medicare HMO plans, please review the plan of care and approve it. It will need to be FAXED BACK to us at [phone] for Medicare purposes. For Medicare only, by signing this I certify the plan of care. Please let me know if there are questions or concerns regarding this plan of care. Physician Signature: Date:
--- NOTE | 2019-10-17 12:02 | HP.PTDCSUM ---
HP - PT D/C Summary It has been my pleasure to treat FLORENTIN INGRAM under orders from MARKO Shane, for the diagnosis of LUMBAR STENOSIS WITH NEUROGENIC CLAUDICATION for a total of 4 visit(s). Discharge Date: 10/17/19 Please see the following information for a summary of their discharge status. - Subjective Subjective: Patient reprts doin well no pain - Pain Bilateral Back Pain Intensity (Out of 10): 0 Right Hip Pain Intensity (Out of 10): 0 - Overall Improvement % Improvement: 80 - Objective Objective/Function: POSTURE: WNL. GAIT: reciprocal pattern. NEURO: INTACT. LUMBAR ROM: WFL. MMT: 5/5 QUADS/HAMS ,HIP 4-/5 - Goals Goal 1:: Patient to be Independant with HEP. Goal Progress: Goal Met Goal 2:: Improve posture/body mechanics for ADL's. Goal Progress: Goal Met Goal 3:: Patient decrease pain by 70% or > to improve function with ADL'S Goal Progress: Goal Met Goal 4:: Patient to improve lumbar ROM for function of recovery Goal Progress: Goal Met Goal 5:: Patient increase right leg 4-/5,left leg 4/5 to improve function and ADL'S Goal Progress: Goal Met Goal 6:: Patient improve LFES score by 5-8 points or > to improve QOL Goal Progress: Goal Met - Plan Plan: D/C TO HEP - D/C Information Discharge Comments: HEP MET GOALS If there are questions or concerns regarding this patient's physical therapy, please feel free to call me at [phone]. Thank you for the referral of this patient. Sincerely, Danilo Nicholson, PT, Cert MDT, OCS
== END 2019-10-17 19:00 | disposition home or self-care (01) ==
LOC: PT 11:30
PROVIDERS: PCP Family Medicine; Referring Provider Nurse Practitioner Acute Care; Visit Provider Nurse Practitioner Acute Care
DX: M48.062 Spinal stenosis, lumbar region with neurogenic claudication (principal)
CPT/HCPCS: 97110; 97162

== ENCOUNTER → 2019-11-07 09:16 | Outpatient (CLI) | payer MEDICAID, SELFPAY ==
[2019-11-07 09:16] VITALS: BMI 34.3
--- NOTE | 2019-11-07 09:17 | RAD_ITS ---
STUDY: X-RAY - LEFT HAND REASON FOR EXAM: Hand pain, no specific injury. TECHNIQUE: 3 view(s) of the hand. COMPARISON: None. FINDINGS: There is osteopenia. Normal radiocarpal articulation. Normal distal radioulnar joint. Normal visualized carpal bones. There is mild joint space narrowing of the triscaphe articulation. Normal carpometacarpal articulation of the thumb. Normal second through fifth carpometacarpal joints. Normal metacarpi. Normal metacarpophalangeal joint of the thumb. There is joint space narrowing of the interphalangeal joint of the thumb. Normal proximal and distal phalanges of the thumb. Normal metacarpophalangeal joints of the second through fifth fingers. There is joint space narrowing of the proximal and distal interphalangeal joints of the second through fifth fingers. Normal phalanges of the second through fifth fingers. There is a small capsular calcification at the radial aspect of the third metacarpophalangeal joint. 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 Small capsular calcification of the third metacarpophalangeal joint. Electronically Signed: Akash Rueda MD at 12:30 EST Tel , Service support ,
== END ==
PROVIDERS: PCP Family Medicine; Referring Provider Orthopaedic Surgery; Visit Provider Orthopaedic Surgery
DX: M79.642 Pain in left hand (principal)
CPT/HCPCS: 73130

== ENCOUNTER 2019-11-08 08:52 | Outpatient (RCR) | payer MEDICAID, SELFPAY ==
[2019-11-07 09:53] VITALS: BMI 27.4
--- NOTE | 2019-11-08 14:27 | HP.OTEVAL ---
Patient's Visit Information MARIELY INGRAM is a 59 year old F, referred to Occupational Therapy by Dr. Arabella Feliz DO, with a diagnosis of L RF trigger finger and L hand dupuytren's. Date of Evaluation: 11/08/19 Occupational Therapist: Twyla Morales, OTR/L - Subjective Subjective: Mariely arrived and noted that she has follow-up appointment December [address] Griffin. She noted she saw Dr. Feliz who completed cortisone injection yesterday. She noted that she notices improvement today in hand as yesterday was unable to make full fist and today, she is able to complete close to full fist. She is R hand dominant. 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 She noted increased difficulty with completed working with weights during exercise. - Pain L hand 0 Pain Intensity Range: 3 - Objective Objective/Observation: bruising at injection site; tender with light palpation. Limited ROM and strength. - ROM MP: MF R 0-82, L 0-59; RF R 0-76, L 0-70 PIP: MF R 0-112, L 0-89; RF R0-112, L 0-95 DIP: MF R 0-77, L 0-50; RF R 0-73, L 0-67 ROM Comments: Limited ROM of L hand. 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 Goal:: Mariely to have similar ROM of L vs R hand for RF and MF measurements to promote increased ROM and mobility needed to return to PLOF by d/c. Goal:: Mariely to have no more than 1/10 painw ith repetitive movement of L hand to promote increased movement of RF and MF for ADl/AIDLs by d/c. Goal:: Mariely to be mod I to complete joint protection strategies to decrease risk of furthe rinjury 4/5 trials 80% of the time by d/c. Goal:: Mariely to be (I) to complete daily HEP to promote strength and endurance of L hand for ADL/IADLs 4/5 trials 80% of the time by d/c. - Rehabilitation General Assessment: Mariely completed OT evaluation on this date of 11/08/2019. Completed cortisone injection 11/07/[address] Feliz and has since improved in some ROM and pain management. She noted decrease strength and endurance. Skilled OT warranted for 1x follow up in two weeks. Mariely lives in [place] and would like to complete majority of therapy at home with home program. She was provided home program today and further exercises will be provided in two weeks as needed. Rehabilitation Potential: Good - Anticipated Interventions Anticipated Interventions: A/AAROM/PROM, Strengthening, Joint Protection/Energy Conservation, Ergonomic Education, Fine Motor Coord/[place], ADL Training, Caregiver Training, Home Program - Visit Plan Frequency: 1x/Week Duration: 2 Weeks General Plan: Mariely completed recent cortisone injection due to L RF trigger finger and Dupuytren's in L hand. She has surgery follow-up December 11 and was here for HEP s/p cortisone. She is to follow up in two weeks or sooner if pain occurs for home program adjustment. TEXT: Thank you for the opportunity to evaluate your patient. For Medicare and Medicare HMO plans, please review the plan of care and approve it. It will need to be FAXED BACK to us at [phone] for Medicare purposes. Please let me know if there are questions or concerns regarding this plan of care. Physician Signature: Date:
--- NOTE | 2020-05-07 07:46 | HP.OT.NRP ---
FLORENTIN INGRAM was seen in my office for initial evaluation on 11/08/19. The following Plan of Care was established for this patient: Initial Frequency: 1x/Week Initial Duration: 2 Weeks Anticipated Interventions: A/AAROM/PROM, Strengthening, Joint Protection/Energy Conservation, Ergonomic Education, Fine Motor Coord/Peewee, ADL Training, Caregiver Training, Home Program This patient was last seen in our office 11/08/19. Pertinent comments regarding their Occupational therapy will appear below: Pt was seen for OT eval only- was given HEP and to follow up in two weeks from initial eval- pt did not schedule further apts and is d/c at this time due to time lapse in services. At this point I will be discontinuing this patient from occupational therapy. I would be happy to see this patient again in the future if found appropriate by the physician. Thank you! Esmer Rodriguez, OTR/L, CHT
== END 2019-11-08 19:00 | disposition home or self-care (01) ==
LOC: OT 08:52
PROVIDERS: PCP Family Medicine; Referring Provider Orthopaedic Surgery; Visit Provider Orthopaedic Surgery
DX: M65.342 Trigger finger, left ring finger (principal); M72.0 Palmar fascial fibromatosis [Dupuytren]
CPT/HCPCS: 97165; 97530

== ENCOUNTER → 2020-01-02 08:03 | Outpatient (CLI) | payer MEDICAID, SELFPAY ==
[2019-11-07 09:53] VITALS: BMI 27.4
[2020-01-02 09:54] LABS: Absolute Neutrophil Count 3.3 X10^3/uL (2.0-7.7); Basophil# 0.03 X10^3/uL; Basophil% 0.5 % (0-1); Eosinophil# 0.31 X10^3/uL; Eosinophils% 5.6 % (0-5); Hematocrit 37.3 % (37-47); Lymphocyte % 27.1 % (19-41); Mean Corp Hgb Conc 32.2 g/dL (32-36); Mean Corpuscular Volume 93.3 fL (81-99); Mean Platelet Vol. 9.9 fl (6.2-12.0); Monocyte# 0.39 X10^3/uL; Monocyte% 7.1 % (0-10); NRBC Flagged by Analyzer 0 % (0-5); Neutrophil # 3.29 X10^3/uL (2.7-7.7); Neutrophil % 59.5 % (47-70); Platelet Count 255 K/mm3 (150-450); RBC Distribution Width SD 44.3 fl (35.1-43.9); White Blood Count 5.5 K/mm3 (4.4-11.0)
[2020-01-02 10:09] LABS: Free T3 1.5 pg/mL (2.18-3.98); T4 Free Direct 1.09 ng/dL (0.76-1.46); Thyroid Stim Hormone (TSH) 0.53 uIU/mL (0.358-3.74)
== END ==
PROVIDERS: PCP Family Medicine; Referring Provider Family Medicine; Visit Provider Family Medicine
DX: E03.9 Hypothyroidism, unspecified (principal); D64.9 Anemia, unspecified
CPT/HCPCS: 36415; 84439; 84443; 84481; 85025

== ENCOUNTER 2020-01-21 05:42 | Day surgery (SDC) | payer MEDICAID, SELFPAY ==
[2019-11-07 09:53] VITALS: BMI 27.4
--- NOTE | 2020-01-20 22:15 | HP.PCM_ITS ---
History and Physical Date of Admission: 01/21/20 HISTORY OF PRESENT ILLNESS 59 year old woman presents with worsening triggering in her left long finger and left ring finger. She had steroid injection in April, with some relief. She states the triggering is becoming more of a problem with activities of daily living. Because of the Coronavirus, trigger finger surgery is on hold until the virus is under control. So additional steroid injection was done last month by Dr. Feliz with some relief. She states she is ready for surgery since she is not interested in repeated steroid injections in the future. She presents at this time for further evaluation and treatment. She denies trauma. PAST MEDICAL HISTORY Trigger finger, left ring finger Trigger finger, left middle finger Carpal tunnel syndrome, bilateral Trigger finger, right ring finger Arthritis Back problem Gout Hypothyroid Osteoarthritis Vitamin deficiency PAST SURGICAL HISTORY gastric bypass hysterectomy back surgery carpal tunnel surgery trigger finger release ALLERGIES celecoxib [From Celebrex] ibuprofen MEDICATIONS Cholecalciferol (VIT D3) [Vitamin D] Multivitamin [Daily Multiple Vitamin] Polyethylene Glycol 3350 [Miralax] diclofenac s levothyroxine omeprazole FAMILY HISTORY Mother - Rheumatoid arthritis, Hypertension, Melanoma, Skin cancer, Thyroid disorder Father - Diabetes, Cancer, Arthritis, Heart disease Brother - Heart disease, High cholesterol Daughter - Thyroid disorder SOCIAL HISTORY Smoking Status: Former smoker REVIEW OF SYSTEMS General - Denies fever, fatigue, and weight loss. Eyes - Denies cataracts and glaucoma. ENT - Denies nasal congestion and sore throat. Endocrine - Denies excessive thirst and urination. Has thyroid disease. Skin - Denies suspicious lesions and skin cancer. Musculoskeletal - Has joint pain, joint stiffness, weakness of muscles and joints, and arthritis. Denies back pain. Has left long trigger finger and left ring trigger finger. Had bilateral carpal tunnel surgery. Had right ring trigger finger release. Neuro - Denies headaches. Cardiovascular - Denies chest pain, fatigue, and shortness of breath with exertion. Psych - Denies anxiety and depression. Respiratory - Denies chronic cough and shortness of breath. Gastrointestinal - Denies nausea, vomiting, diarrhea, and constipation. Hematologic - Denies abnormal bruising and bleeding. Genitourinary - Denies hematuria and urinary frequency. PHYSICAL EXAMINATION General - Alert and Oriented. HEENT - PERRL. EOMI. Throat is clear. Neck - Supple and nontender. No cervical adenopathy. Lungs - Clear to auscultation. Heart - Regular rate and rhythm. Abdomen - Soft and nondistended. Extremities - FROM. No axillary adenopathy. Radial pulses are palpable. Fingers are warm with good capillary refill. Minimal swelling seen. Patient can make a fist. No evidence of acute triggering today involving the left long finger and left ring finger. No audible clicking noted today. There is thickening in the area of the A1 alma in the distal palmar crease with some mild tenderness to palpation. Palm is soft. No sensory deficits. Neuro - CN II-XII grossly intact. Psych - Normal mood and affect. ASSESSMENT 1. Left long trigger finger. 2. Left ring trigger finger. 3. Family history of skin cancer. 4. Former smoker. PLAN Recommend incision tendon sheath A1 alma to release triggering of left long finger and left ring finger. Surgery can be done on an outpatient basis under tourniquet control with B[place] Block anesthesia. Postoperatively, a bulky dressing will be placed in the palm. Will encourage range of motion exercises to minimize stiffness. Because of the Coronavirus, the surgery is on hold since it is not life threate aries. Once the virus has been controlled, will schedule the surgery. Patient was informed of the risks and complications of the procedure including alternatives to surgery. These were discussed with the patient personally. Patient voices understanding and wishes to proceed. Some of the risks and complications were included in a form from the [employer]. Some of the risks and complications that were discussed included but were not inclusive of failure to diagnose including symptom relief, pain, infection, numbness, stiffness, loss of digit, RSD (CRPS), need for further surgery, contracture, and wound healing problems.
[2020-01-21 06:20] VITALS: BP 141/74; PULSE 60; RESP 18; TEMP 36.8; O2SAT 100; BMI 28.7
[2020-01-21] MEDS: Cefazolin 2 GM in 0.9% Normal Saline 100 ML IV (07:28)
[2020-01-21] MEDS: Mupirocin Ointment 22gm Tube 1 APPLIC (08:06)
--- NOTE | 2020-01-21 08:13 | PCM.OPRPT ---
Report of Operation Date of Procedure: 01/21/20 Pre-Operative Diagnosis: 1. Left long trigger finger. 2. Left ring trigger finger. 3. Family history of skin cancer. 4. Former smoker. Post-Operative Diagnosis: Same. Surgery/Procedure Performed:: 1. Incision tendon sheath for trigger finger left long finger. 2. Incision tendon sheath for trigger finger left ring finger. Description of Surgical Findings:: 59 year old woman presents with worsening triggering in her left long finger and left ring finger. She had steroid injection in April, with some relief. She states the triggering is becoming more of a problem with activities of daily living. Because of the Coronavirus, trigger finger surgery is on hold until the virus is under control. So additional steroid injection was done last month by Dr. Feliz with some relief. She states she is ready for surgery since she is not interested in repeated steroid injections in the future. She denies trauma. Patient was informed of the risks and complications of the procedure including alternatives to surgery. These were discussed with the patient personally. Patient voices understanding and wishes to proceed. Some of the risks and complications were included in a form from the [employer]. Some of the risks and complications that were discussed included but were not inclusive of failure to diagnose including symptom relief, pain, infection, numbness, stiffness, loss of digit, RSD (CRPS), need for further surgery, contracture, and wound healing problems. Total tourniquet time - 28 minutes. microstrategy architect developer: None Type of Anesthesia:: Block,[place] Specimen's removed: None. Drains: None. Estimated Blood Loss (mL): 2 ml. Description of Procedure: Patient was taken to OR in supine position and [place] Block anesthesia was administered with the tourniquet inflated to 250 mmHg. The left upper extremity was prepped and draped in the usual fashion. SCD's were placed for DVT prophylaxis. Perioperative antibiotics were given intravenously. Horizontal markings were made in the distal palmar crease area to the left long finger and left ring finger. Using xylocaine with epinephrine, the markings were infiltrated. After waiting 5 minutes for the anesthetic to take effect, horizontal incisions were made first in the ring finger and then secondly the long finger. Dissection was carried down to the tendon sheath A1 alma. Thickened alma was seen. Increased inflammation was seen. The dissection was done longitudinally to minimize injury to the digital nerves. Under direct vision and using a scalpel, an incision was made through the A1 alma up to the beginning of the A2 alma. The flexor tendons were able to glide very easily without clinical evidence of further tethering. I then proceeded with the long finger. A horizontal incision was made in the distal palmar crease and dissection was carried down to the tendon sheath A1 alma. Thickened alma was seen. Increased inflammation was seen. The dissection was done longitudinally to minimize injury to the digital nerves. Under direct vision and using a scalpel, an incision was made through the A1 alma up to the beginning of the A2 alma. The flexor tendons were able to glide very easily without clinical evidence of further tethering. The tourniquet was released after 28 minutes. Hemostasis was obtained with gentle pressure. The incisions were closed with 5-0 Nylon simple interrupted sutures and vertical mattress interrupted sutures. Antibiotic ointment was applied to the suture line followed by Xeroform gauze and 2x2 gauze followed by 2 inch Maria R wrap. Patient tolerated the procedure well and was sent to PACU in satisfactory condition. Patient will be sent home on antibiotics and pain medication. She will keep her left hand elevated during the initial postoperative period. Patient will followup in a week for a wound check and for discussion of the pathology report . The sutures will be removed in two weeks. Grafts/Implants Used: None. - Complications None. - Admit VTE Documentation VTE Present on Admission: No VTE Mechan Device Prophylaxis: SCD's VTE Pharm Prophylaxis ordered?: No Surgery Charges CPT - 56925 ICD-10 - M65.332, Z80.8, Z87.891 09524 M65.342, Z80.8, Z87.891
[2020-01-21 08:15] VITALS: BP 125/66; BP 141/74; PULSE 77; RESP 16; TEMP 36.2; O2SAT 97
[2020-01-21 08:20] VITALS: BP 129/69; BP 141/74; PULSE 68; RESP 16; O2SAT 96
[2020-01-21 08:25] VITALS: BP 125/72; BP 141/74; PULSE 67; RESP 16; O2SAT 96
--- NOTE | 2020-01-21 08:27 | PCM.DC ---
You will use the following diet at home:: No restrictions Discharge Activity: May not drive while taking narcotic pain medications., May Shower - wear plastic bag over left hand when showerin., - - elevate left hand when sitting. no heavy lifting. May shower in (days): 1 - wear plastic bag over left hand when showering. May resume sexual activity in: No Restrictions Weight Bearing Status: Weight bearing as tolerated Lifting Restrictions: 20 lbs. Keep extremity elevated above heart level: Left Arm Call your doctor if your incision/area has: Continuous Slow Oozing, Sudden Increased Bleeding, Increased Pain/ Swelling, Increased Redness, Foul Smelling Discharge, Swelling at the incision site Call your doctor if you observe: Fever of 101 or Higher, Coldness, Increased Pain, Shortness of breath, Chest pain, Calf discomfort, Uncontrolled pain Suture Line Care: - - after dressing is removed in office, apply antibiotic ointment to suture line daily. Change Dressing in (Days):: 7 - will remove in office. Cleanse incision/area with: - - wear plastic bag over left hand when showering. Allergies/Adverse Reactions: Allergies celecoxib [From Celebrex] Allergy (Verified 01/21/20 06:16) dizziness ibuprofen Allergy (Verified 01/21/20 06:16) HARD TIME BREATHING Medications to take at Discharge Cholecalciferol (VIT D3) [Vitamin D3] 5,000 unit PO DAILY 06/23/16 Multivitamin [Daily Multiple Vitamin] 1 ea PO DAILY 06/23/16 Polyethylene Glycol 3350 [Miralax] 17 gm PO DAILY 06/23/16 diclofenac sodium 50 mg tablet,delayed release 50 mg PO BID 11/07/19 levothyroxine 75 mcg capsule 37.5 mcg PO DAILY 11/07/19 omeprazole 40 mg capsule,delayed release 40 mg PO DAILY 11/07/19 Liothyronine Sodium 5 mcg PO DAILY 01/16/20 Cefadroxil [Duricef] 500 mg PO BID #8 cap 01/21/20 Lactobacillus Acidophilus/Fos [Acidophilus Probiotic Tablet] 1 ea PO BID #10 tab 01/21/20 Oxycodone HCl/Acetaminophen [Percocet 5/325] 1 tab PO Q6H PRN PRN 7 Days #28 tab 01/21/20 The following prescriptions were given: Lactobacillus Acidophilus/Fos [Acidophilus Probiotic Tablet] 1 ea PO BID #10 tab Transmission Status: Received by [facility] Cefadroxil [Duricef] 500 mg PO BID #8 cap Transmission Status: Received by [facility] Oxycodone HCl/Acetaminophen [Percocet 5/325] 1 tab PO Q6H PRN PRN 7 Days #28 tab PRN Reason: Pain Score 4-5/10 Transmission Status: Received by [facility] Primary Care Physician: Phyllis Lujan DO [Primary Care Provider] - Test Results: Test results from this visit will be discussed in further detail at your follow-up appointment, if applicable. Please Follow Up With: Danilo Griffin MD When: one week. call [phone] for appt. Proposed Discharge Date: 01/21/20
[2020-01-21 08:30] VITALS: BP 133/77; BP 141/74; PULSE 68; RESP 16; TEMP 36.6; O2SAT 96
[2020-01-21 09:21] VITALS: BP 141/74
== END 2020-01-21 09:33 | disposition home or self-care (01) ==
LOC: SDC 05:43 → AC 05:43
PROVIDERS: PCP Family Medicine; Referring Provider Surgery; Visit Provider Surgery
PROC: (CPT 26055; principal; 2020-01-21 07:20)
DX: M65.332 Trigger finger, left middle finger (principal); M65.342 Trigger finger, left ring finger; Z80.8 Family history of malignant neoplasm of other organs or systems; Z11.59 Encounter for screening for other viral diseases; G56.03 Carpal tunnel syndrome, bilateral upper limbs; M19.90 Unspecified osteoarthritis, unspecified site; M10.9 Gout, unspecified; E03.9 Hypothyroidism, unspecified; K58.9 Irritable bowel syndrome, unspecified; K21.9 Gastro-esophageal reflux disease without esophagitis; Z86.2 Personal history of diseases of the blood and blood-forming organs and certain disorders involving the immune mechanism; Z78.0 Asymptomatic menopausal state; Z79.899 Other long term (current) drug therapy; Z87.891 Personal history of nicotine dependence
CPT/HCPCS: 26055 ×2; 87635; G2023; J7120; U0002

== ENCOUNTER → 2020-03-16 08:40 | Outpatient (CLI) | payer MEDICAID, SELFPAY ==
[2020-01-29 10:38] VITALS: BMI 28.7
[2020-03-16 13:21] LABS: Free T3 2.1 pg/mL (2.18-3.98); T4 Free Direct 0.94 ng/dL (0.76-1.46); Thyroid Stim Hormone (TSH) 0.71 uIU/mL (0.358-3.74)
== END ==
PROVIDERS: PCP Family Medicine; Visit Provider Family Medicine
DX: E03.9 Hypothyroidism, unspecified (principal)
CPT/HCPCS: 36415; 84439; 84443; 84481

== ENCOUNTER → 2020-05-21 09:12 | Outpatient (CLI) | payer MEDICAID, SELFPAY ==
[2020-01-29 10:38] VITALS: BMI 28.7
[2020-05-21 11:59] LABS: Absolute Lymphocyte Count 1.24 X10^3/uL (0.83-4.51); Basophil# 0.03 X10^3/uL; Basophil% 0.6 % (0-1); Eosinophil# 0.28 X10^3/uL; Eosinophils% 5.7 % (0-5); Hematocrit 35.9 % (37-47); Hemoglobin 11.4 g/dL (12.0-15.0); Lymphocyte # 1.24 X10^3/ul (4.0); Lymphocyte % 25.3 % (19-41); Mean Corp Hgb Conc 31.8 g/dL (32-36); Mean Corpuscular Hgb 30.2 pg (27.0-32.0); Monocyte# 0.38 X10^3/uL; Monocyte% 7.7 % (0-10); NRBC Flagged by Analyzer 0 % (0-5); Neutrophil # 2.98 X10^3/uL (2.7-7.7); Neutrophil % 60.7 % (47-70); Platelet Count 329 K/mm3 (150-450); RBC Distribution Width CV 12.4 % (11.6-14.6); RBC Distribution Width SD 42.8 fl (35.1-43.9); Red Blood Count 3.78 M/mm3 (4.2-5.4); White Blood Count 4.9 K/mm3 (4.4-11.0)
[2020-05-21 12:15] LABS: Vitamin B12 986 pg/mL (211-911)
[2020-05-21 12:33] LABS: ALB/GLOB Ratio 1.2 RATIO (0.9-2.4); AST(SGOT) 31 U/L (15-37); Alanine Aminotransfer ALT/SGPT 53 U/L (13-56); Albumin, Serum 3.6 g/dL (3.2-5.0); Alkaline Phosphatase 95 U/L (45-117); Anion Gap 8 (5-15); BUN 21 mg/dL (7-18); BUN/Creat Ratio 22.8 RATIO (10-20); Calcium,Total 8.8 mg/dL (8.5-10.1); Chloride 108 mmol/L (98-107); Creatinine, Serum 0.92 mg/dL (0.55-1.02); EST Glomerular Filtration Rate 66 mL/min (>60); Est Glom Filt Rate - Afr Amer 79 mL/min (>60); Free T3 1.6 pg/mL (2.18-3.98); Globulin 2.9 g/dL (2.2-4.2); Glucose 71 mg/dL (74-106); Iron 103 ug/dL (50-170); Potassium 4.4 mmol/L (3.5-5.1); Protein, Total 6.5 g/dL (6.4-8.2); Sodium Level 140 mmol/L (136-145); T4 Free Direct 0.88 ng/dL (0.76-1.46); Thyroid Stim Hormone (TSH) 0.38 uIU/mL (0.358-3.74)
== END ==
PROVIDERS: PCP Family Medicine; Visit Provider Family Medicine
DX: R53.83 Other fatigue (principal); E03.9 Hypothyroidism, unspecified; E61.1 Iron deficiency
CPT/HCPCS: 36415; 80053; 82306; 82607; 83540; 84439; 84443; 84481; 85025

== ENCOUNTER 2020-06-16 08:30 | Outpatient (RCR) | payer MEDICAID, SELFPAY ==
[2020-01-29 10:38] VITALS: BMI 28.7
--- NOTE | 2020-06-12 09:49 | HP.OTEVAL_ITS ---
Patient's Visit Information FLORENTIN INGRAM is a 59 year old F, referred to Occupational Therapy by Dr. Phyllis Lujan DO, with a diagnosis of left RF/MF stiffness. Date of Evaluation: 06/11/20 Occupational Therapist: DIONNA Campbell/Jono, CHT - Subjective This 59 year old female was seen for OT eval with dx of left MF/RF trigger f dilan/ stiffness following sx on 01/20/20. pt states she is having difficulty making a fist and this limits her ind. with ADls and IADls. pt would like to make a full fist- pt states her finger hurts all the time. - Pain left hand/finger 4 Pain Intensity Range: 3, 6 - ROM ROM Comments: left MCP MF -15 right +. left MCP RF - right +15 80. left PIP MF 055 right 0/95. 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 Pt will demo an increase in lateral and tripod pinch by 2# to increase pts independent with opening baggies, containers at PLOF by D/C. Goal:: Pt will demo the ability to form a composite fist to hold and receive 10 coins without dropping coins/ and coin manipulation/money mtg. tasks and ind. With manipulating fasteners for dressing by D/C. Goal:: Pt will report pain no greater than 1/10 with use of affected hand with BADLs and IADLs by d/c. Goal:: Pt will demo understanding of scar mtg. by end of 2nd session to increase tissue extensibility to limit scar adhesions and allow full tendons function by d/c. Pt will demo a decrease is scar sensitivity to tolerate wearing long sleeve shirts by D/c. 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 Today therapist ed. pt on scar mtg, tendon glides, finger flex and ext stretches. pt demo understanding and agree to POC. Rehabilitation Potential: Good - Anticipated Interventions A/AAROM/PROM, Strengthening, Scar Care, Triggerpoint Release, Modalities, Joint Protection/Energy Conservation, Fine Motor Coord/Peewee, Home Program - Visit Plan Frequency: 2-3x /Week Duration: 4 Weeks TEXT: Thank you for the opportunity to evaluate your patient. For Medicare and Medicare HMO plans, please review the plan of care and approve it. It will need to be FAXED BACK to us at [phone] for Medicare purposes. Please let me know if there are questions or concerns regarding this plan of care. Physician Signature: Date:
--- NOTE | 2020-06-16 09:00 | HP.OTDCSUM ---
It has been my pleasure to treat FLORENTIN INGARM under orders from Dr. Phyllis Lujan DO, for the diagnosis of left RF/MF stiffness for a total of 2 visit(s). Please see the following information for a summary of their discharge status. % Improvement: 99 Objective/Function: pt demo the ability to form a composite fist. left landman strength 45# increase from 20# Patient Goals: Regain Mobility, Decrease Pain, Use Hand/Wrist/Arm Normally Again Goal:: PT will demo an increase in landman strength by 20# to increase independent with basic occupations of daily living to return pt to [facility] by D/C. Pt will demo an increase in lateral and tripod pinch by 2# to increase pts independent with opening baggies, containers at [facility] by D/C. Goal:: Pt will demo the ability to form a composite fist to hold and receive 10 coins without dropping coins/ and coin manipulation/money mtg. tasks and ind. With manipulating fasteners for dressing by D/C. Goal:: Pt will report pain no greater than 1/10 with use of affected hand with BADLs and IADLs by d/c. Goal:: Pt will demo understanding of scar mtg. by end of 2nd session to increase tissue extensibility to limit scar adhesions and allow full tendons function by d/c. Pt will demo a decrease is scar sensitivity to tolerate wearing long sleeve shirts by D/c. Plan: D/C with HEP Discharge Comments: pt was seen for one follow up and demo the ability to form a composite fist and a increase in left landman strength from 20# to 45#.pt reports 99% improvement and has retured to performing her ADls and IADLs at [facility]. pt has met goals and will continue with HEP to mtg strength and scar. pt to call with questions or concerns If there are questions or concerns regarding this patient's occupational therapy, please fell free to call me at [phone]. Thank you for the referral of this patient. Sincerely, Esmer Rodriguez, OTR/L, CHT
== END 2020-06-16 19:00 | disposition home or self-care (01) ==
LOC: OT 08:30
PROVIDERS: PCP Family Medicine; Referring Provider Family Medicine; Visit Provider Family Medicine
DX: M65.342 Trigger finger, left ring finger (principal); M77.9 Enthesopathy, unspecified
CPT/HCPCS: 97035; 97165; 97530

== ENCOUNTER → 2020-07-09 08:38 | Outpatient (CLI) | payer MEDICAID, SELFPAY ==
[2020-01-29 10:38] VITALS: BMI 28.7
[2020-07-09 09:43] LABS: Erythrocyte Sedimentation Rate 13 mm/hr (0-30)
[2020-07-09 09:45] LABS: Absolute Lymphocyte Count 1.38 X10^3/uL (0.83-4.51); Absolute Neutrophil Count 2.7 X10^3/uL (2.0-7.7); Basophil# 0.03 X10^3/uL; Basophil% 0.6 % (0-1); Eosinophil# 0.18 X10^3/uL; Eosinophils% 3.9 % (0-5); Hematocrit 38.2 % (37-47); Hemoglobin 12.1 g/dL (12.0-15.0); Lymphocyte # 1.38 X10^3/ul (4.0); Lymphocyte % 29.7 % (19-41); Mean Corp Hgb Conc 31.7 g/dL (32-36); Mean Corpuscular Hgb 30.3 pg (27.0-32.0); Mean Corpuscular Volume 95.7 fL (81-99); Monocyte# 0.36 X10^3/uL; Monocyte% 7.7 % (0-10); NRBC Flagged by Analyzer 0 % (0-5); Neutrophil # 2.69 X10^3/uL (2.7-7.7); Neutrophil % 57.9 % (47-70); Platelet Count 309 K/mm3 (150-450); RBC Distribution Width CV 12.2 % (11.6-14.6); RBC Distribution Width SD 42.3 fl (35.1-43.9); Red Blood Count 3.99 M/mm3 (4.2-5.4); White Blood Count 4.7 K/mm3 (4.4-11.0)
[2020-07-09 10:26] LABS: ALB/GLOB Ratio 1.3 RATIO (0.9-2.4); AST(SGOT) 40 U/L (15-37); Alanine Aminotransfer ALT/SGPT 80 U/L (13-56); Albumin, Serum 3.8 g/dL (3.2-5.0); Alkaline Phosphatase 113 U/L (45-117); Anion Gap 5 (5-15); BUN 24 mg/dL (7-18); BUN/Creat Ratio 25.6 RATIO (10-20); CRP < 2.90 mg/L (0.0-3.0); Calcium,Total 8.8 mg/dL (8.5-10.1); Chloride 103 mmol/L (98-107); Creatinine, Serum 0.94 mg/dL (0.55-1.02); EST Glomerular Filtration Rate 64 mL/min (>60); Est Glom Filt Rate - Afr Amer 78 mL/min (>60); Free T3 2.2 pg/mL (2.18-3.98); Globulin 2.9 g/dL (2.2-4.2); Glucose 76 mg/dL (74-106); Iron 105 ug/dL (50-170); Potassium 4.3 mmol/L (3.5-5.1); Protein, Total 6.7 g/dL (6.4-8.2); Rheumatoid Factor < 10.0 IU/mL (<15); Sodium Level 137 mmol/L (136-145); T4 Free Direct 1.18 ng/dL (0.76-1.46); Thyroid Stim Hormone (TSH) 1.28 uIU/mL (0.358-3.74)
[2020-07-09 14:00] LABS: T3 Total - Triiodothyronine 0.84 ng/mL (0.6-1.81); Vitamin B12 875 pg/mL (211-911); Vitamin D,25 Hydroxy 50.5 ng/mL
[2020-07-23 05:55] LABS: CCP IgG Antibodies 4 units (0-19)
== END ==
PROVIDERS: PCP Family Medicine; Referring Provider Family Medicine; Visit Provider Family Medicine
DX: R53.83 Other fatigue (principal); E03.9 Hypothyroidism, unspecified; E61.1 Iron deficiency; M25.50 Pain in unspecified joint
CPT/HCPCS: 36415; 80053; 82306; 82607; 83540; 84439; 84443; 84480; 84481; 84482; 85025; 85652; 86038; 86140; 86200; 86431

== ENCOUNTER → 2020-08-13 08:58 | Outpatient (CLI) | payer MEDICAID, SELFPAY ==
[2020-01-29 10:38] VITALS: BMI 28.7
[2020-08-13 12:30] LABS: ALB/GLOB Ratio 1.3 RATIO (0.9-2.4); AST(SGOT) 24 U/L (15-37); Alanine Aminotransfer ALT/SGPT 42 U/L (13-56); Albumin, Serum 3.8 g/dL (3.2-5.0); Alkaline Phosphatase 111 U/L (45-117); Anion Gap 6 (5-15); BUN 26 mg/dL (7-18); BUN/Creat Ratio 27.7 RATIO (10-20); Chloride 106 mmol/L (98-107); Creatinine, Serum 0.94 mg/dL (0.55-1.02); EST Glomerular Filtration Rate 64 mL/min (>60); Est Glom Filt Rate - Afr Amer 78 mL/min (>60); Glucose 84 mg/dL (74-106); Potassium 4.4 mmol/L (3.5-5.1); Protein, Total 6.8 g/dL (6.4-8.2); Sodium Level 138 mmol/L (136-145)
== END ==
PROVIDERS: PCP Family Medicine; Visit Provider Family Medicine
DX: R74.8 Abnormal levels of other serum enzymes (principal)
CPT/HCPCS: 36415; 80053

== ENCOUNTER → 2020-10-13 10:08 | Outpatient (CLI) | payer MEDICAID, SELFPAY ==
[2020-01-29 10:38] VITALS: BMI 28.7
--- NOTE | 2020-10-13 10:10 | BI_ITS ---
MAMMOGRAPHY - BILATERAL SCREENING REASON FOR EXAM: Female, 60 years old. Routine annual screening examination. PERTINENT HISTORY: Non-contributory. TECHNIQUE: Digital bilateral breast farrukh (3D mammographic acquisition) in the CC and MLO projections. 2-D mediolateral oblique (MLO) and craniocaudad (CC) views of both breasts were obtained. CAD: Full Field Digital Mammography with Computer Added Detection was performed. COMPARISON: Comparison is made with prior study dated 10/03/2019 and 10/02/2018. FINDINGS: Breast Composition: There are scattered areas of fibroglandular density. There are no dominant masses or suspicious calcifications. No other significant abnormalities are identified. There has been no significant change since the prior study. BI/SCRN MAMM (CAD)W/FARRUKH BILAT IMPRESSION: Stable bilateral screening mammogram. Yearly follow-up mammogram recommended. (A) ASSESSMENT CATEGORY: BIRADS Category 1: Negative. A letter regarding these results will be sent to the patient by the facility within 30 days. Approximately 10% of breast cancers are not detected by mammography. A normal mammogram should not delay biopsy of a clinically suspicious abnormality. [id number] Electronically Signed: Ludwin Miranda MD at 11:06 EST , Service support ,
--- NOTE | 2020-10-13 10:14 | BD_ITS ---
STUDY: DUAL ENERGY X-RAY ABSORPTIOMETRY / DXA REASON FOR EXAM: Female, 60 years old. 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 COMPARISON: Comparison is made with prior study dated 10/02/2018. FINDINGS: Lumbar Spine (L1-L4): g/cm2 (0.904) / T-score (-2.2) / Z-score (-0.9) Findings are suggestive of osteopenia with a high fracture risk. Left Femur Total: g/cm2 (0.761) / T-score (-2.0) / Z-score (-0.9) Left Femoral Neck: g/cm2 (0.874) / T-score (-1.2) / Z-score (0.1) Right Femur Total: g/cm2 (0.749) / T-score (-2.1) / Z-score (-1.0) Right Femoral Neck: g/cm2 (0.819) / T-score (-1.6) / Z-score (-0.3) The T-Scores on the most recent prior examination were: Lumbar Spine (L1-L4): There has been worsening of bone density since the previous examination. Left Femur Total: which represents a worsening of 7%. Right Femur Total: which represents a worsening of 7.3%. BD/Dexa Bone Density Study IMPRESSION: The patient is considered osteopenic as outlined below according to World Rob Organization (WHO) criteria with a high fracture risk. There has been worsening of bone density since the previous examination. Reference Information: The T-score is the number of standard deviations above or below the standard which is normal for young adults at their peak bone mineral density. The World Health Organization (WHO) interprets the T-scores as follows: Above -1 Normal bone density Between -1 and -2.5 Osteopenia Equal to / or below -2.5 Osteoporosis As a practical clinical guideline, osteopenia may be graded as follows: Mild -1 through -1.5 Moderate -1.6 through -2.0 Severe -2.1 through -2.4 The Z-score is the number of standard deviations above or below age-matched controls. A Z-score of less than -1.5 would be considered abnormal. References: 1. NIH Osteoporosis and Related Bone Diseases www osteo.org 2. International Society for Clinical Densitometry www iscd.org 3. National Osteoporosis Foundation www nof.org Electronically Signed: Ludwin Miranda MD at 12:51 EST , Service support ,
== END ==
PROVIDERS: PCP Family Medicine; Referring Provider Family Medicine; Visit Provider Family Medicine
DX: Z12.31 Encounter for screening mammogram for malignant neoplasm of breast (principal); M81.0 Age-related osteoporosis without current pathological fracture
CPT/HCPCS: 77063; 77067; 77080

== ENCOUNTER → 2021-02-24 13:39 | Outpatient (CLI) | payer MEDICAID, SELFPAY ==
[2020-01-29 10:38] VITALS: BMI 28.7
[2021-02-24 14:56] LABS: Absolute Lymphocyte Count 1.66 X10^3/uL (0.83-4.51); Absolute Neutrophil Count 2.7 X10^3/uL (2.0-7.7); Basophil# 0.02 X10^3/uL; Basophil% 0.4 % (0-1); Eosinophil# 0.17 X10^3/uL; Eosinophils% 3.4 % (0-5); Hematocrit 37.8 % (37-47); Lymphocyte # 1.66 X10^3/ul (0.83-4.51); Lymphocyte % 33.2 % (19-41); Mean Corp Hgb Conc 31.7 g/dL (32-36); Mean Corpuscular Hgb 28.8 pg (27.0-32.0); Mean Corpuscular Volume 90.6 fL (81-99); Mean Platelet Vol. 9.8 fl (6.2-12.0); Monocyte# 0.47 X10^3/uL; Monocyte% 9.4 % (0-10); NRBC Flagged by Analyzer 0 % (0-5); Neutrophil # 2.67 X10^3/uL (2.7-7.7); Neutrophil % 53.4 % (47-70); Platelet Count 302 K/mm3 (150-450); RBC Distribution Width CV 13.3 % (11.6-14.6); RBC Distribution Width SD 44.5 fl (35.1-43.9); Red Blood Count 4.17 M/mm3 (4.2-5.4)
[2021-02-24 15:30] LABS: T3 Total - Triiodothyronine 1.11 ng/mL (0.6-1.81)
[2021-02-24 15:39] LABS: Free T3 2.7 pg/mL (2.18-3.98); T4 Free Direct 0.94 ng/dL (0.76-1.46); T4 Total, Thyroxin 9.4 ug/dL (4.8-13.9); Thyroid Stim Hormone (TSH) 0.45 uIU/mL (0.358-3.74)
[2021-02-28 08:18] LABS: T3 Reverse 12.8 ng/dL (9.2-24.1); Thyroid Peroxidase AB < 9 IU/mL (0-34)
== END ==
PROVIDERS: PCP Family Medicine; Referring Provider Family Medicine; Visit Provider Family Medicine
DX: E03.9 Hypothyroidism, unspecified (principal); Z51.81 Encounter for therapeutic drug level monitoring; R53.83 Other fatigue
CPT/HCPCS: 36415; 84436; 84439; 84443; 84480; 84481; 84482; 85025; 86376

== ENCOUNTER → 2021-02-26 14:14 | Outpatient (CLI) | payer MEDICAID, SELFPAY ==
[2020-01-29 10:38] VITALS: BMI 28.7
--- NOTE | 2021-02-26 14:15 | US_ITS ---
STUDY: THYROID ULTRASOUND REASON FOR EXAM: Female, 60 years old. THYROMEGALY TECHNIQUE: Ultrasound evaluation of the thyroid was performed with real-time and static perez-scale imaging. COMPARISON: None. FINDINGS: RIGHT LOBE: The right lobe of the thyroid gland measures 4.9 x 2.0 x 1.5 cm. There is a homogeneous echotexture. There are 5 hypoechoic nodules of the right thyroid lobe with the largest (isoechoic, TR 3) measuring 2.0 x 1.4 x 0.8 cm. LEFT LOBE: The left lobe of the thyroid gland measures 4.8 x 1.6 x 1.2 cm. There is a homogeneous echotexture. Multiple solid/cystic nodules of the left thyroid lobe with the largest (TR 3) measuring 1.5 x 1.4 x 0.5 cm. ISTHMUS: The isthmus measures 3 mm. The regional lymph nodes are normal. US/Thyroid IMPRESSION: Bilateral thyroid nodules with dominant nodule in the right side. TI-RADS points: 3. TI-RADS category: TR3. This nodule is mildly suspicious. Recommend follow-up thyroid ultrasounds at 1, 3 and 5 years. Electronically Signed: Pepe Nava MD (Brooks) at 15:41 EDT , Service support ,
== END ==
PROVIDERS: PCP Family Medicine; Referring Provider Family Medicine; Visit Provider Family Medicine
DX: E01.0 Iodine-deficiency related diffuse (endemic) goiter (principal); E04.1 Nontoxic single thyroid nodule
CPT/HCPCS: 76536

== ENCOUNTER → 2021-07-09 | Outpatient (CLI) | payer MEDICAID, SELFPAY | END | disposition home or self-care (01) | PROVIDERS: PCP Family Medicine; Visit Provider Family Medicine | DX: R05.9 Cough, unspecified (principal) | CPT/HCPCS: 87635; U0005; U0003 ==

== ENCOUNTER 2021-09-05 17:09 | Inpatient (IN) | payer MEDICAID, SELFPAY ==
[2021-09-05 17:10] VITALS: BP 113/78; PULSE 106; RESP 16; TEMP 37.2; O2SAT 95; BMI 30.1
[2021-09-05 19:46] VITALS: BP 134/72; PULSE 88; RESP 16; O2SAT 97
[2021-09-05 19:57] LABS: Absolute Lymphocyte Count 0.55 X10^3/uL (0.83-4.51); Absolute Neutrophil Count 4.5 X10^3/uL (2.0-7.7); Basophil# 0.04 X10^3/uL; Basophil% 0.7 % (0-1); Eosinophil# 0.06 X10^3/uL; Hematocrit 24.8 % (37-47); Lymphocyte # 0.55 X10^3/ul (0.83-4.51); Lymphocyte % 9.3 % (19-41); Mean Corp Hgb Conc 32.3 g/dL (32-36); Mean Corpuscular Hgb 30.3 pg (27.0-32.0); Mean Corpuscular Volume 93.9 fL (81-99); Mean Platelet Vol. 9.5 fl (6.2-12.0); Monocyte# 0.75 X10^3/uL; Monocyte% 12.7 % (0-10); NRBC Flagged by Analyzer 0 % (0-5); Neutrophil # 4.49 X10^3/uL (2.7-7.7); POSITIVE DIFFERENTIAL YES; Platelet Count 311 K/mm3 (150-450); RBC Distribution Width CV 13.9 % (11.6-14.6); RBC Distribution Width SD 47.5 fl (35.1-43.9); Red Blood Count 2.64 M/mm3 (4.2-5.4); White Blood Count 5.9 K/mm3 (4.4-11.0)
[2021-09-05 20:00] LABS: Differential Indicated SCAN CRITERIA MET
[2021-09-05 20:25] LABS: Anion Gap 6 (5-15); BUN 30 mg/dL (7-18); BUN/Creat Ratio 29.4 RATIO (10-20); Chloride 106 mmol/L (98-107); Creatinine, Serum 1.02 mg/dL (0.55-1.02); EST Glomerular Filtration Rate 58 mL/min (>60); Est Glom Filt Rate - Afr Amer 70 mL/min (>60); Estimated Creatinine Clearance 47.31 ml/min; Glucose 111 mg/dL (74-106); Potassium 3.9 mmol/L (3.5-5.1); Sodium Level 139 mmol/L (136-145)
[2021-09-05 20:27] LABS: Differential Comment SCANNED
--- NOTE | 2021-09-05 21:25 | EKG12_ITS ---
Test Reason : DYSRHYTHMIA Blood Pressure : / mmHG Vent. Rate : 086 BPM Atrial Rate : 086 BPM P-R Int : 158 ms QRS Dur : 086 ms QT Int : 352 ms P-R-T Axes : 029 026 049 degrees QTc Int : 421 ms Normal sinus rhythm Normal ECG Confirmed by RIMA CRANE, CHOLO ([id number]), news videotape editor SHAKILA POST ([id number]) on 09/08/2021 12:13:52 PM Referred By: PL Confirmed By:CHOLO ABARCA MD
--- NOTE | 2021-09-05 21:39 | ED.VIS.GI ---
HPI HPI - GI History of Present Illness Chief Complaint: GI Bleed Informant: patient Narrative Narrative: Patient presents with melena. She states she got up this morning about 5:00. She had a bowel movement that was large black and grainy. It was hard to wipe away. This has repeated today. She is also had some nausea but no vomiting. She has some mild epigastric discomfort only. She states she has been kind of lightheaded and weak today. She has had no energy. Is worse when she stands up. It took a while to find out what meds she was on. It looks like she does take diclofenac for arthritis. She has never had a GI bleed before. She has been Covid vaccinated. She has had subjective chills. No cough. No congestion. No significant myalgias. She does have malaise. Patient is also had gastric bypass surgery. This was done up in [place]. This was done 5 years ago. She has not had complications of this. [facility] Medical History (Updated 09/06/21 @ 01:[address] Dieudonne Pelaez MD) Arthritis Back problem Carpal tunnel syndrome, bilateral Gout Hypothyroid Osteoarthritis Trigger finger, left middle finger Trigger finger, left ring finger Trigger finger, right ring finger Vitamin deficiency Home Medications cholecalciferol (vitamin D3) 5,000 unit PO DAILY 06/23/16 [History Last Taken Unknown] multivitamin 1 ea PO DAILY 06/23/16 [History Last Taken Unknown] polyethylene glycol 3350 17 gm PO DAILY 06/23/16 [History Last Taken Unknown] diclofenac sodium 50 mg tablet,delayed release 50 mg PO BID 11/07/19 [History Last Taken Unknown] levothyroxine 75 mcg capsule 37.5 mcg PO DAILY 11/07/19 [History Last Taken Unknown] omeprazole 40 mg capsule,delayed release 40 mg PO DAILY 11/07/19 [History Last Taken 01/21/20 04:00] liothyronine 5 mcg PO DAILY 01/16/20 [History Last Taken Unknown] Lactobac acidoph-fructooligos 1 ea PO BID #10 tab 01/21/20 [Rx Last Taken Unknown] cefadroxil 500 mg PO BID #8 cap 01/21/20 [Rx Last Taken Unknown] Allergy/AdvReac Type Severity Reaction Status Date / Time celecoxib [From Celebrex] Allergy dizziness Verified 09/05/21 17:13 ibuprofen Allergy HARD TIME Verified 09/05/21 17:13 BREATHING Family History Mother Rheumatoid arthritis Hypertension Melanoma Skin cancer Thyroid disorder Father Diabetes Cancer Arthritis Heart disease Brother Heart disease High cholesterol Daughter Thyroid disorder Surgical History h/o back surgery H/O gastric bypass H/O: hysterectomy History of carpal tunnel surgery Status post trigger finger release Social History Smoking Status: Former smoker alcohol intake: never substance use type: does not use additional social history: DOES NOT TAKE ASPIRIN DOES NOT TAKE IBUPROFEN ROS ROS ED Constitutional Constitutional ED: Reports other Details: She has had generalized malaise today. ; Denies fever(s) ENT ENT ED: Denies rhinorrhea Cardiovascular Cardiovascular: Denies chest pain or palpitations Respiratory/Chest Respiratory/Chest: Denies cough or dyspnea Gastrointestinal Gastrointestinal: Reports abdominal pain, melena and nausea; Denies diarrhea or vomiting Genitourinary Genitourinary ED: Denies dysuria or hematuria Musculoskeletal Musculoskeletal: Denies back pain or myalgias Integumentary Denies rash Neurologic Neurologic: Denies headache(s) Psychiatric Psychiatric: Denies depression Endocrine Endocrinology: Denies polydipsia or polyuria Hematologic/Lymphatic Hematologic/Lymphatic: Denies easy bleeding or easy bruising Allergic/Immunologic Allergic/Immunologic ED: Denies mouth swelling or urticaria EXAM Physical Exam Const Vital Signs: 09/05/21 17:10 09/05/21 19:46 09/05/21 21:42 Temperature 99.0 F Temperature Source Temporal Pulse Rate 106 H 88 87 Pulse Rate [Lying] Pulse Rate [Sitting] Pulse Rate [Standing] Respiratory Rate 16 16 16 Blood Pressure 113/78 134/72 H 115/63 Blood Pressure [Lying] Blood Pressure [Sitting] Blood Pressure [Standing] Blood Pressure Mean 89 92 80 Blood Pressure Mean [Lying] Blood Pressure Mean [Sitting] Blood Pressure Mean [Standing] Pulse Ox 95 97 97 Oxygen Delivery Method Room Air Room Air Room Air 09/05/21 23:13 09/06/21 00:48 Temperature Temperature Source Pulse Rate 89 Pulse Rate [Lying] 88 Pulse Rate [Sitting] 96 Pulse Rate [Standing] 120 H Respiratory Rate 15 Blood Pressure 115/61 Blood Pressure [Lying] 119/65 Blood Pressure [Sitting] 104/65 Blood Pressure [Standing] 84/49 L Blood Pressure Mean 79 Blood Pressure Mean [Lying] 83 Blood Pressure Mean [Sitting] 78 Blood Pressure Mean [Standing] 60 Pulse Ox 100 Oxygen Delivery Method Room Air Patient does look a little bit pale to me. Positive well nourished and well developed General Appearance ED: well developed, NAD and pallor HEENT Reports moist mucous membranes normocephalic Eyes General Eye ED: Yes pale conjunctiva; Negative for scleral icterus Neck no JVD Resp normal respiratory effort and clear to auscultation bilaterally Auscultation: Negative for rales, rhonchi or wheezes Cardio regular rate and regular rhythm GI non-tender, non-distended and no masses GI Narrative: No tenderness. She states she has a little bit of discomfort in the epigastric area off and on but it is minimal. Auscultation: normoactive bowel sounds Palpation: soft Back/Spine no CVA tenderness Extremity full ROM Neuro Sensorium / Orientation: alert and oriented to person Psych mental status grossly normal Skin General Skin Exam: pallor Lesions: no lesions Rashes: no rashes MDM MDM MDM Narrative Medical decision making narrative: Patient's rectal exam showed no active bleeding. However, there was dark stool a small amount. No masses. Hemoglobin was low at 8.0. This is approximately 4 g drop since 6 months ago. Platelets and white count are normal. Electrolytes show mild elevation in BUN but normal creatinine. LFTs showed no acute process. Lactic acid was normal. Coags were normal. Because of her history of prior surgery and slight abdominal discomfort we did do a CAT scan that showed no acute process. Patient also has a positive Covid. She is vaccinated but not boosted. She is not short of breath. Patient has been kind of weak and lightheaded. I think some of the symptoms are due to Covid. However, some are certainly due to blood loss. She is on diclofenac which might be a cause of her bleeding. She is given pantoprazole. Patient will be admitted. Lab Data Attestation: I reviewed the patient's lab results. Labs: Laboratory Results - last 24 hr 09/05/21 09/05/21 09/05/21 19:45 19:45 21:35 WBC 5.9 RBC 2.64 L Hgb 8.0 L Hct 24.8 L MCV 93.9 MCH 30.3 MCHC 32.3 RDW Std Deviation 47.5 H RDW Coeff of Sparkle 13.9 Plt Count 311 MPV 9.5 Immature Gran % (Auto) 0.300 Neut % (Auto) 76.0 H Lymph % (Auto) 9.3 L Cheatham % (Auto) 12.7 H Eos % (Auto) 1.0 Baso % (Auto) 0.7 Absolute Neuts (auto) 4.5 Absolute Lymphs (auto) 0.55 L Nucleated RBC % 0 Differential Comment SCANNED PT INR APTT Sodium 139 Potassium 3.9 Chloride 106 Carbon Dioxide 27.0 Anion Gap 6 BUN 30 H Creatinine 1.02 Estim Creat Clear Calc 47.31 Est GFR (MDRD) Af Amer 70 Est GFR (MDRD) Non-Af 58 L BUN/Creatinine Ratio 29.4 H Glucose 111 H Lactic Acid Calcium 9.0 Total Bilirubin 0.10 L Direct Bilirubin < 0.05 AST 21 ALT 30 Alkaline Phosphatase 74 Troponin I High Sens 13 Total Protein 6.7 Albumin 3.5 Globulin 3.2 Blood Type Antibody Screen 09/05/21 09/05/21 09/05/21 21:40 21:40 22:15 WBC RBC Hgb Hct MCV MCH MCHC RDW Std Deviation RDW Coeff of Sparkle Plt Count MPV Immature Gran % (Auto) Neut % (Auto) Lymph % (Auto) [place]atham % (Auto) Eos % (Auto) Baso % (Auto) Absolute Neuts (auto) Absolute Lymphs (auto) Nucleated RBC % Differential Comment PT 13.0 INR 1.0 APTT 30.6 Sodium Potassium Chloride Carbon Dioxide Anion Gap BUN Creatinine Estim Creat Clear Calc Est GFR (MDRD) Af Amer Est GFR (MDRD) Non-Af BUN/Creatinine Ratio Glucose Lactic Acid 0.7 Calcium Total Bilirubin Direct Bilirubin AST ALT Alkaline Phosphatase Troponin I High Sens Total Protein Albumin Globulin Blood Type O POSITIVE Antibody Screen NEGATIVE Radiography Diagnostic Testing: Clinical Impression(s) from Imaging Studies Abdomen/Pelvis CT 09/05/21 22:47 IMPRESSION: No acute abnormalities in the abdomen or pelvis. Electronically Signed: João Almanzar MD at 23:53 EST Tel , Service support , EKG Initial EKG: Comments: EKG done as part of work-up for weakness and GI bleed shows normal sinus rhythm with overall rate of 86. No ectopy. No acute ST elevation or depression. NC interval, QRS duration and QTc normal. Discharge Plan Triage Chief Complaint: GI Bleed ED Provider: Dieudonne Pelaez Dx/Rx/DC Orders Clinical Impression: Melena, GI bleed, Acute anemia, COVID Prescriptions: No Action omeprazole 40 mg capsule,delayed release(DR/EC) 40 mg PO DAILY RF: 0 levothyroxine 75 mcg capsule 75 mcg capsule 37.5 mcg PO DAILY RF: 0 diclofenac sodium 50 mg tablet,delayed release (DR/EC) 50 mg PO BID RF: 0 multivitamin 1 EACH tablet 1 ea PO DAILY RF: 0 polyethylene glycol 3350 17 GM packet 17 gm PO DAILY RF: 0 cholecalciferol (vitamin D3) 1,000 UNIT tablet 5,000 unit PO DAILY RF: 0 liothyronine 5 MCG tablet 5 mcg PO DAILY RF: 0 cefadroxil 500 MG capsule 500 mg PO BID Qty: 8 RF: 0 Lactobac acidoph-fructooligos 1 EACH tablet 1 ea PO BID Qty: 10 RF: 0 Primary Care Provider: Phyllis Lujan Referrals: Phyllis Lujan DO [Primary Care Provider] - Disposition Disposition: Acute Care Hospital [facility]
[2021-09-05 21:42] VITALS: BP 115/63; PULSE 87; RESP 16; O2SAT 97
[2021-09-05 22:04] LABS: AST(SGOT) 21 U/L (15-37); Alanine Aminotransfer ALT/SGPT 30 U/L (13-56); Albumin, Serum 3.5 g/dL (3.2-5.0); Alkaline Phosphatase 74 U/L (45-117); Bilirubin, Direct < 0.05 mg/dL (0.00-0.30); Globulin 3.2 g/dL (2.2-4.2); Protein, Total 6.7 g/dL (6.4-8.2); Troponin-I HS 13 pg/mL (3.0-54.0)
[2021-09-05 22:14] LABS: Lactic Acid 0.7 mmol/L (0.4-1.9)
[2021-09-05 22:44] LABS: Partial Thromboplast Time 30.6 Seconds (24.1-36.2)
--- NOTE | 2021-09-05 22:47 | CT_ITS ---
INDICATION: pain EXAMINATION: CT Abdomen And Pelvis W/ Contrast Injection TECHNIQUE: Helically acquired images were obtained of the abdomen and pelvis after IV contrast. A radiation dose optimization technique was used for this scan. IV Contrast dosage and agent: IV 100mL [id number] Oral contrast: None. COMPARISON: 09/14/2017 FINDINGS: Visualized lung bases: Unremarkable Liver: Unremarkable Gallbladder: Unremarkable Spleen: Unremarkable Pancreas: Unremarkable Adrenal Glands: Unremarkable Kidneys: Scattered too small to characterize subcentimeter hypodensities bilaterally. Vasculature: Unremarkable GI Tract: Status post gastric bypass surgery. Lymphadenopathy: None Peritoneum: No ascites. Bladder: Unremarkable Reproductive organs: Unremarkable Bones/Soft tissues: Mild scattered degenerative changes of the visualized spine. CT/Abdomen/Pelvis W IV Cont ONLY IMPRESSION: No acute abnormalities in the abdomen or pelvis. Electronically Signed: João Almanzar MD at 23:53 EST Tel , Service support ,
[2021-09-05 23:13] VITALS: BP 115/61; PULSE 89; RESP 15; O2SAT 100
[2021-09-06] VITALS (22 sets, daily range): BP systolic 84–129; BP diastolic 49–65; PULSE 70–120; RESP 14–20; TEMP 36.8–39.2; O2SAT 93–99; BMI 31.1
--- NOTE | 2021-09-06 00:58 | HP.PCM.HOS_ITS ---
HPI - General General Date of Admission: 09/06/21 HPI Narrative FLORENTIN INGRAM, is a 60 F with a significant history of hypothyroidism; and arthritis who presents to the emergency department with black tarry stool x2. Her symptoms occurred 2 hours before presentation. Associated with her symptoms is lightheadedness; chills and headache. Further, she reports headache. COVID-19 vaccination status; patient was vaccinated with 5. She has had 2 doses of Pfizer in December and in january 2021. She has not had a booster yet. Rectal exams was done by ED doctor and reported as unremarkable. [facility] Medical History Arthritis Back problem Carpal tunnel syndrome, bilateral Gout Hypothyroid Osteoarthritis Trigger finger, left middle finger Trigger finger, left ring finger Trigger finger, right ring finger Vitamin deficiency Home Medications cholecalciferol (vitamin D3) 5,000 unit PO DAILY 06/23/16 [History Last Taken Unknown] multivitamin 1 ea PO DAILY 06/23/16 [History Last Taken Unknown] polyethylene glycol 3350 17 gm PO DAILY 06/23/16 [History Last Taken Unknown] diclofenac sodium 50 mg tablet,delayed release 50 mg PO BID 11/07/19 [History Last Taken Unknown] omeprazole 40 mg capsule,delayed release 40 mg PO DAILY 11/07/19 [History Last Taken 01/21/20 04:00] cefadroxil 500 mg PO BID #8 cap 01/21/20 [Rx Last Taken Unknown] Allergy/AdvReac Type Severity Reaction Status Date / Time celecoxib [From Celebrex] Allergy dizziness Verified 09/05/21 17:13 ibuprofen Allergy HARD TIME Verified 09/05/21 17:13 BREATHING Family History Mother Rheumatoid arthritis Hypertension Melanoma Skin cancer Thyroid disorder Father Diabetes Cancer Arthritis Heart disease Brother Heart disease High cholesterol Daughter Thyroid disorder Surgical History h/o back surgery H/O gastric bypass H/O: hysterectomy History of carpal tunnel surgery Status post trigger finger release Social History Smoking Status: Former smoker alcohol intake: never substance use type: does not use additional social history: DOES NOT TAKE ASPIRIN DOES NOT TAKE IBUPROFEN ROS ROS Narrative Constitutional: Reports chills and malaise. Denies change in weight Eyes: Denies blurry vision, change in eye color, change in vision, discharge from eye(s), double vision, erythema, eye pain, loss of vision or other HEENT: Denies abnormal hearing, dysphagia, ear pain, epistaxis, , hearing loss, nasal congestion, nasal discharge, post nasal drip, sinus pressure, sore throat or other Cardiovascular: Denies chest pain or palpitations. Denies dyspnea on exertion, orthopnea and paroxysmal nocturnal dyspnea Respiratory/Chest: Denies cough, excessive phlegm production, shortness of breath with exertion and wheezing Gastrointestinal: Reports melena. Denies abdominal pain, coffee ground emesis, nausea or vomiting. Genitourinary: Denies burning urination, difficulty urinating, dysuria, hematuria, nocturia, urinary frequency, urinary hesitancy, urinary incontinence, urinary urgency or other Musculoskeletal: Reports myalgia. Reports arthralgia (chronic). Neurologic: Reports lightheadedness. Reports headaches. Denies abnormal gait, abnormal speech, confusion, disequilibrium, focal weakness, numbness, paresthesias, seizure-like activity, seizures, syncope, tingling, tremor(s) or other Psychiatric: Denies anxiety, depression, homicidal ideation, suicidal ideation or other Endocrinology: Denies change in body appearance, cold intolerance, excessive sweating, heat intolerance, polydipsia, polyuria or other Hematologic/Lymphatic: Denies anemia, easy bleeding, easy bruising, lymphadenopathy or other Integumentary: Denies rashes Allergic/Immunologic: Denies rhinitis, hives, eczema, asthma or other Vital Signs Vital Signs Vital Signs: 09/05/21 17:10 09/05/21 19:46 09/05/21 21:42 Temperature 99.0 F Temperature Source Temporal Pulse Rate 106 H 88 87 Pulse Rate [Lying] Pulse Rate [Sitting] Pulse Rate [Standing] Respiratory Rate 16 16 16 Blood Pressure 113/78 134/72 H 115/63 Blood Pressure [Lying] Blood Pressure [Sitting] Blood Pressure [Standing] Blood Pressure Mean 89 92 80 Blood Pressure Mean [Lying] Blood Pressure Mean [Sitting] Blood Pressure Mean [Standing] Pulse Ox 95 97 97 Oxygen Delivery Method Room Air Room Air Room Air 09/05/21 23:13 09/06/21 00:48 Temperature Temperature Source Pulse Rate 89 Pulse Rate [Lying] 88 Pulse Rate [Sitting] 96 Pulse Rate [Standing] 120 H Respiratory Rate 15 Blood Pressure 115/61 Blood Pressure [Lying] 119/65 Blood Pressure [Sitting] 104/65 Blood Pressure [Standing] 84/49 L Blood Pressure Mean 79 Blood Pressure Mean [Lying] 83 Blood Pressure Mean [Sitting] 78 Blood Pressure Mean [Standing] 60 Pulse Ox 100 Oxygen Delivery Method Room Air Weight Weight: 77.111 kg Body Mass Index (BMI) 30.1 Physical Exam Narrative Physical exam: General: Well-nourished, well-developed. Head: Normocephalic, atraumatic, no tenderness Eyes: PERRLA, EOMI ENT, no trauma, moist mucous membranes, no rhinorrhea Neck: Nontender, full range of motion, no spinal tenderness, deformities, step- off CVS: Regular rate and rhythm. S1-S2 present. No murmur, gallop or rub. Respiratory : clear to auscultation bilaterally, chest wall nontender, no wheezing Abdomen: Soft, nontender, nondistended, normal bowel sounds, no masses : Deferred Back: Nontender, no CVA tenderness, no midline spinal tenderness, deformities, step-offs Extremities: Nontender full range of motion, no trauma Skin: Pale, no trauma, abrasions Neuro: Alert, oriented, cranial nerves II through XII grossly intact. Psychiatry: Normal mood. Normal affect. Not depressed. Not anxious. Results Lab / Micro Data Result Diagrams: 09/06/21 03:28 09/05/21 19:45 Labs: Laboratory Results - last 24 hr 09/05/21 19:45: WBC 5.9, RBC 2.64 L, Hgb 8.0 L, Hct 24.8 L, MCV 93.9, MCH 30.3, MCHC 32.3, RDW Std Deviation 47.5 H, RDW Coeff of Sparkle 13.9, Plt Count 311, MPV 9.5, Immature Gran % (Auto) 0.300, Neut % (Auto) 76.0 H, Lymph % (Auto) 9.3 L, [place] % (Auto) 12.7 H, Eos % (Auto) 1.0, Baso % (Auto) 0.7, Absolute Neuts (auto) 4.5, Absolute Lymphs (auto) 0.55 L, Nucleated RBC % 0, Differential Comment SCANNED 09/05/21 19:45: Sodium 139, Potassium 3.9, Chloride 106, Carbon Dioxide 27.0, Anion Gap 6, BUN 30 H, Creatinine 1.02, Estim Creat Clear Calc 47.31, Est GFR (MDRD) Af Amer 70, Est GFR (MDRD) Non-Af 58 L, BUN/Creatinine Ratio 29.4 H, Glucose 111 H, Calcium 9.0 09/05/21 21:35: Total Bilirubin 0.10 L, Direct Bilirubin < 0.05, AST 21, ALT 30, Alkaline Phosphatase 74, Troponin I High Sens 13, Total Protein 6.7, Albumin 3.5, Globulin 3.2 09/05/21 21:40: PT 13.0, INR 1.0, APTT 30.6 09/05/21 21:40: Lactic Acid 0.7 09/05/21 22:15: Blood Type O POSITIVE, Antibody Screen NEGATIVE Micro: Microbiology 09/05/21 22:15 Nasal Secretion SARS-CoV-2 Antigen (Rapid) - Final Radiology Impression Abdomen/Pelvis CT 09/05/21 22:47 IMPRESSION: No acute abnormalities in the abdomen or pelvis. Electronically Signed: João Almanzar MD at 23:53 EST Tel , Service support , Assessment & Plan Assessment/Plan (1) Melena: (2) GI bleed: QUALIFIERS: GI bleed type/associated pathology: melena Qualified Code(s): K92.1 - Melena (3) ABLA (acute blood loss anemia): (4) COVID-19: (5) Orthostatic hypotension: PLAN: ABLA secondary to acute upper GI bleed. Hgb on presentation was initially 8.0. Delta dropped to 6.0L. Review of record showed that her baseline hemoglobin is around 12. Abdomen pelvis CT showed no acute abnormalities. Actual image was independently interpreted and agree radiologist reputation above. ED labs shows elevated BUN which is consistent with upper GI bleed. Orthostatic positive at the emergency department. Will admit to progressive care unit. Patient received normal saline bolus at the emergency department and then gentle IV hydration. Of note aggressive fluid hydration is limited by COVID-19 infection. H&H every 6 hours Stop nsaids No anticoagulants for DVT prophylaxis Protonix IV ordered GI consult COVID-19 infection No hypoxia so no indication for steroids or other treatment therapy. Tylenol prn ordered Enhanced droplet precautions ordered DVT Prophylaxis: SCD ordered Charges/Coding Visit Charges Inpatient E&M: 10162 Init Hosp L3
--- NOTE | 2021-09-06 03:15 | PCS.PANDOC ---
PANDEMIC DOCUMENTATION INITIATED: Date: 04/19/2021 Time: 190
[2021-09-06] MEDS: 0.9% Normal Saline 1,000 ML 100 ML IV ×2 (03:45→14:36)
[2021-09-06] MEDS: Acetaminophen 325 MG Tablet 650 MG PO ×3 (03:46→20:32)
[2021-09-06 04:05] LABS: Hematocrit 18.6 % (37-47)
[2021-09-06] MEDS: 0.9% Saline Lock 10 ML Syringe IV (06:19)
--- NOTE | 2021-09-06 09:08 | CON.PCM.GI_ITS ---
HPI Consult Data Date of Consult: 09/06/21 HPI Narrative HPI Narrative: FLORENTIN INGRAM, is a 60 F who presents with multiple episodes of melanotic stools. She is status post Ariadna-en-Y gastric bypass in 2006. She has a past history of gout, hypothyroidism and osteoarthritis. She takes Prilosec for mild gastroesophageal reflux disease and was told diclofenac about 3 to 4 months ago. When she was at home she had 6 or 7 bouts of melanotic stools associated with cramping. When she got to the ED she was discovered to have a hemoglobin of 6. Her previous hemoglobin was 12. She did have one episode of anemia that was noted back earlier in 2020 with a hemoglobin of 8. She complains of nausea. She was transfused packed red blood cells and started on Protonix drip. [facility] Medical History Arthritis Back problem Carpal tunnel syndrome, bilateral Gout Hypothyroid Osteoarthritis Trigger finger, left middle finger Trigger finger, left ring finger Trigger finger, right ring finger Vitamin deficiency Home Medications cholecalciferol (vitamin D3) 5,000 unit PO DAILY 06/23/16 [History Last Taken Unknown] multivitamin 1 ea PO DAILY 06/23/16 [History Last Taken Unknown] polyethylene glycol 3350 17 gm PO DAILY 06/23/16 [History Last Taken Unknown] diclofenac sodium 50 mg tablet,delayed release 50 mg PO BID 11/07/19 [History Last Taken Unknown] omeprazole 40 mg capsule,delayed release 40 mg PO DAILY 11/07/19 [History Last Taken 01/21/20 04:00] cefadroxil 500 mg PO BID #8 cap 01/21/20 [Rx Last Taken Unknown] Allergy/AdvReac Type Severity Reaction Status Date / Time celecoxib [From Celebrex] Allergy dizziness Verified 09/05/21 17:13 ibuprofen Allergy HARD TIME Verified 09/05/21 17:13 BREATHING Family History Mother Rheumatoid arthritis Hypertension Melanoma Skin cancer Thyroid disorder Father Diabetes Cancer Arthritis Heart disease Brother Heart disease High cholesterol Daughter Thyroid disorder Surgical History h/o back surgery H/O gastric bypass H/O: hysterectomy History of carpal tunnel surgery Status post trigger finger release Social History Smoking Status: Former smoker alcohol intake: never substance use type: does not use additional social history: DOES NOT TAKE ASPIRIN DOES NOT TAKE IBUPROFEN ROS Review of Systems ROS Unobtainable: other Constitutional Constitutional: Denies fatigue, fever(s), poor appetite, weight gain or weight loss ENT HEENT: Denies mouth lesions Cardiovascular Cardiovascular: Denies abdominal bloating, abdominal edema or abdominal pain Respiratory/Chest Respiratory/Chest: Denies change in mental status, change in phlegm color, chest congestion or chest tightness Gastrointestinal Gastrointestinal: Reports loose stools, melena and nausea Genitourinary Genitourinary: Denies abdominal discomfort, burning urination or itching Musculoskeletal Musculoskeletal: Reports as per HPI; Denies muscle weakness or myalgias Integumentary Integumentary: Denies jaundice Neurologic Neurologic: Denies lack of coordination or weakness Psychiatric Psychiatric: Denies confusion, depression, memory loss, mood swings, paranoia or suicidal ideation Endocrine Endocrinology: Denies systems reviewed and no addt'l complaints, except as documented Hematologic/Lymphatic Hematologic/Lymphatic: Denies anemia, easy bleeding, easy bruising or lymphadenopathy Allergic/Immunologic Allergic/Immunologic: Denies systems reviewed and no addt'l complaints, except as documented Physical Exam Const alert General Appearance: cooperative Orientation / Consciousness: oriented to person HEENT hearing grossly normal bilaterally Head and Scalp: normal to inspection Face and Sinus: face symmetric Nose: external nose normal Mouth: oral and palatal mucosa normal Eyes conjunctivae normal General Eye: normal appearance of both eyes Neck full ROM General: normal visual inspection Lymph Lymphatic: no lymphadenopathy noted Chest inspection of chest normal and palpation of chest normal Chest: symmetrical chest wall rise Resp normal respiratory effort Effort and Inspection: able to speak in complete sentences Cardio regular rate GI non-distended Percussion: normal to percussion Rectal Exam: deferred Neuro Speech: speech normal Gait (Neuro): normal gait Lab / Micro Data Result Diagrams: 09/06/21 03:28 09/05/21 19:45 Labs: Laboratory Results - last 24 hr 09/05/21 19:45: WBC 5.9, RBC 2.64 L, Hgb 8.0 L, Hct 24.8 L, MCV 93.9, MCH 30.3, MCHC 32.3, RDW Std Deviation 47.5 H, RDW Coeff of Sparkle 13.9, Plt Count 311, MPV 9.5, Immature Gran % (Auto) 0.300, Neut % (Auto) 76.0 H, Lymph % (Auto) 9.3 L, [place] % (Auto) 12.7 H, Eos % (Auto) 1.0, Baso % (Auto) 0.7, Absolute Neuts (auto) 4.5, Absolute Lymphs (auto) 0.55 L, Nucleated RBC % 0, Differential Comment SCANNED 09/05/21 19:45: Sodium 139, Potassium 3.9, Chloride 106, Carbon Dioxide 27.0, Anion Gap 6, BUN 30 H, Creatinine 1.02, Estim Creat Clear Calc 47.31, Est GFR (MDRD) Af Amer 70, Est GFR (MDRD) Non-Af 58 L, BUN/Creatinine Ratio 29.4 H, Glucose 111 H, Calcium 9.0 09/05/21 21:35: Total Bilirubin 0.10 L, Direct Bilirubin < 0.05, AST 21, ALT 30, Alkaline Phosphatase 74, Troponin I High Sens 13, Total Protein 6.7, Albumin 3.5, Globulin 3.2 09/05/21 21:40: PT 13.0, INR 1.0, APTT 30.6 09/05/21 21:40: Lactic Acid 0.7 09/05/21 22:15: Blood Type O POSITIVE, Antibody Screen NEGATIVE 09/05/21 22:15: Crossmatch See Detail 09/06/21 03:28: Hgb 6.0 L*, Hct 18.6 L Micro: Microbiology 09/06/21 00:43 Stool Stool Occult Blood ([facility]WIN) - Final 09/05/21 22:15 Nasal Secretion SARS-CoV-2 Antigen (Rapid) - Final Radiology Impression Abdomen/Pelvis CT 09/05/21 22:47 IMPRESSION: No acute abnormalities in the abdomen or pelvis. Electronically Signed: João Almanzar MD at 23:53 EST Tel , Service support , Assessment & Plan Assessment/Plan (1) GI bleed: QUALIFIERS: GI bleed type/associated pathology: melena Qualified Code(s): K92.1 - Melena PLAN: Acute GI bleed likely secondary to diclofenac at the gastric jejunal anastomosis or the jejunojejunal anastomosis. Also the differential diagnosis for an upper GI bleed will be for ulceration IN the gastric remnant. She consented to an upper endoscopy. She was explained alternatives, risk, benefits including not withstanding bleeding, infection, sepsis, perforation, need for emergent surgery . She will have an ASA 1. Recommend to recheck her hemoglobin and keep hematocrit greater than 30%, continue PPI therapy and no anticoagulants at this time. Charges/Coding Visit Charges Inpatient E&M: 95511 Init Hosp L2
--- NOTE | 2021-09-06 11:56 | CASEMGMT ---
Addendum entered by Elysia Buck 09/06/21 14:54: Pt states is vaccinated and so is . Pt states no concerns getting resources at discharge. Caprice MADSEN CM Original Note: CALE JOHNSON assessment: Initial transition planning/care coordination assessment. CALE JOHNSON introduced self and role at [facility], pt voices understanding and consents to assessment. Pt is A/Ox4 and answers questions appropriately. Pt is on room air in no distress. Care providers, pharmacy, and demographics verified. Presentation: Pt c/o COREAS, dizziness, black tarry stool for 2 days Admitting dx: Acute blood loss anemia, COVID PCP: Le Specialists: Matt, general duty nurse in [place] Preferred Pharmacy: [facility]/Mail order Insurance: Rodriguez Prescription Benefit: Rodriguez Living Will/HPOA: Pt states has LW/HPOA and is aware that they are not on file at [facility]. Pt states , Rafi Rogers, is HPOA. LNOK: Rafi Rogers, Living Arrangements: Pt lives with in 1 story home with 3 steps in and states no concerns at home. Pt is independent with ADL's. Transportation: Pt drives self and states no transportation concerns. DME/HHC: Pt states no current DME or need for any further DME. Pt states no preference for DME company, if qualifies for home oxygen at discharge. Pt states no hx of HHC or SNF. Pt states no concerns with going home at time of discharge. Pt is retired. Pt states does not smoke cigarettes or drink ETOH. Pt states no further concerns/needs. CM to follow for any further discharge planning/needs. Advised pt to ask for CM if any further questions/concerns/needs arise, voices understanding. Pt Goal: Home Plan: Home Caprice MADSEN CM
[2021-09-06 15:38] LABS: Hematocrit 23.6 % (37-47); Hemoglobin 7.9 g/dL (12.0-15.0)
--- NOTE | 2021-09-06 15:55 | OP.EGD_ITS ---
Patient Name: Mariely Rogers Procedure Date: 09/06/2021 12:15 PM Date of : 1960 Age: 60 Procedure: Upper GI endoscopy Indications: Acute post hemorrhagic anemia Providers: Remi Mancini DO Medicines: See the Anesthesia note for documentation of the administered medications Patient Profile: This is a 60 year old female. Refer to note in patient chart for documentation of history and physical. Patient has symptoms. Complications: No immediate complications. Procedure: Pre-Anesthesia Assessment: - Prior to the procedure, a History and Physical was performed, and patient medications and allergies were reviewed. The patient is competent. The risks and benefits of the procedure and the sedation options and risks were discussed with the patient. All questions were answered and informed consent was obtained. Patient identification and proposed procedure were verified by the physician. Mental Status Examination: alert and oriented. Airway Examination: normal oropharyngeal airway and neck mobility. Respiratory Examination: clear to auscultation. CV Examination: normal. Prophylactic Antibiotics: The patient does not require prophylactic antibiotics. Prior Anticoagulants: The patient has taken no previous anticoagulant or antiplatelet agents. ASA Grade Assessment: II - A patient with mild systemic disease. After reviewing the risks and benefits, the patient was deemed in satisfactory condition to undergo the procedure. The anesthesia plan was to use moderate sedation / analgesia (conscious sedation). Immediately prior to administration of medications, the patient was re-assessed for adequacy to receive sedatives. The heart rate, respiratory rate, oxygen saturations, blood pressure, adequacy of pulmonary ventilation, and response to care were monitored throughout the procedure. The physical status of the patient was re-assessed after the procedure. After obtaining informed consent, the endoscope was passed under direct vision. Throughout the procedure, the patient's blood pressure, pulse, and oxygen saturations were monitored continuously. The Colonoscope was introduced through the mouth, and advanced to the mid-jejunum. The upper GI endoscopy was accomplished without difficulty. The patient tolerated the procedure well. Moderate Sedation: Moderate (conscious) sedation was administered by the endoscopy nurse and supervised by the endoscopist. The patient's oxygen saturation, heart rate, blood pressure and response to care were monitored. Total physician intraservice time was 15 minutes. Scope In: 12:32:35 PM Scope Out: 1:06:11 PM Total Procedure Duration Time 0 hours 33 minutes 36 seconds Findings: The examined esophagus was normal. Evidence of a Ariadna-en-Y gastrojejunostomy was found. The gastrojejunal anastomosis was characterized by healthy appearing mucosa and an intact appearance. This was traversed. The [id number] limb was characterized by healthy appearing mucosa. The jejunojejunal anastomosis was characterized by edema and erythema. The [id number] limb was not examined as it could not be found. Impression: - Normal esophagus. - Ariadna-en-Y gastrojejunostomy with gastrojejunal anastomosis characterized by healthy appearing mucosa and an intact appearance. - No specimens collected. Recommendation: - Transfer patient to another hospital. - Continue present medications. Procedure Code(s): --- Professional --- 80608, Esophagogastroduodenoscopy, flexible, transoral; diagnostic, including collection of specimen(s) by brushing or washing, when performed (separate procedure) 10031, 59, Moderate sedation services provided by the same physician or other qualified health healthcare translator performing the diagnostic or therapeutic service that the sedation supports, requiring the presence of an independent trained observer to assist in the monitoring of the patient's level of consciousness and physiological status; initial 15 minutes of intraservice time, patient age 5 years or older CPT copyright 2017 [employer] [place] [employer]. All rights reserved. The codes documented in this report are preliminary and upon remote medical coder review may be revised to meet current compliance requirements. Remi Mancini DO 09/06/2021 3:54:28 PM This report has been signed electronically. Number of Addenda: 1 Note Initiated On: 09/06/2021 12:15 PM Addendum Number: 1 Addendum Date: 05/12/2022 6:03:23 AM MAC was used instead of moderate sedation for the patient. Remi Mancini DO 05/12/2022 6:03:28 AM This report has been signed electronically.
--- NOTE | 2021-09-06 15:56 | OP.CCLET_ITS ---
05/12/2022 Phyllis Lujan [address] [place] [address] Re : Upper GI endoscopy procedure for Mariely Rogers Dear Dr. Lujan This procedure was performed on Monday, September 06, 2021. My impressions and recommendations are as follows: Impressions : - Normal esophagus. - Ariadna-en-Y gastrojejunostomy with gastrojejunal anastomosis characterized by healthy appearing mucosa and an intact appearance. - No specimens collected. Recommendations : - Transfer patient to another hospital. - Continue present medications. My findings are described in the full procedure note, which is enclosed. If I can be of further assistance, please feel free to contact me at . Sincerely, Remi Mancini, 09/06/2021 3:54:28 PM This report has been signed electronically.
--- NOTE | 2021-09-06 23:27 | NURSING ---
PT AMBULATED TO BR W/DENTAL APPLIANCE MECHANIC WHO LOWERED HER TO THE FLOOR. PT THEN SAT ON TOILET. BP 105/62. PT RESTED AND THEN W/ASSIST OF 2 RNS AND DENTAL APPLIANCE MECHANIC SHE WAS MOVED TO A WHEELED CHAIR AND TRANSFERRED BACK TO BED. ONCE BACK IN BED PT REPORTED SHE WAS DIZZY PRIOR TO THE FALL. VS UPON RETURNING TO BED BP 105/43 HR 89 SPO2 93. NOW RESTING COMFORTABLY IN BED.
[2021-09-07] VITALS (25 sets, daily range): BP systolic 93–130; BP diastolic 47–68; PULSE 77–93; RESP 16–18; TEMP 36.5–38.5; O2SAT 94–100
[2021-09-07 00:23] LABS: Hematocrit 19.6 % (37-47); Hemoglobin 6.6 g/dL (12.0-15.0)
[2021-09-07] MEDS: 0.9% Normal Saline 1,000 ML 100 ML IV ×3 (00:49→12:59)
--- NOTE | 2021-09-07 00:55 | NURSING ---
RN asked pt if she wanted notified of incident when she was lowered to the bathroom floor. Pt stated that she did not want us to call her and have him worry and she would call him tomorrow.
[2021-09-07] MEDS: Acetaminophen 325 MG Tablet 650 MG PO (01:45)
[2021-09-07] MEDS: 0.9% Saline Lock 10 ML Syringe IV (03:23)
--- NOTE | 2021-09-07 07:43 | CT_ITS ---
STUDY: CTA ABDOMEN AND PELVIS WITH CONTRAST REASON FOR EXAM: Female, 60 years old. Acute GI bleeding RADIATION DOSAGE (If Supplied By Facility): CTDIvol = ( 23.48 ) mGy, DLP = ( 987.58 ) mGycm TECHNIQUE: Transaxial images were obtained from the dome of the diaphragm to the symphysis pubis without oral contrast. IV 100mL Isovue-370 was administered. Sagittal and coronal images were reconstructed. Individualized dose optimization techniques were used for this CT. COMPARISON: Comparison is made with prior study dated 09/05/2021. FINDINGS: Minimal linear atelectasis along the lateral aspect of the left lower lobe. Mild coronary artery calcification. There is decreased attenuation of the liver consistent with steatosis. Normal gallbladder and extrahepatic biliary system. Normal spleen. Normal pancreas. Normal bilateral adrenal glands. Normal right kidney. Normal left kidney. There is evidence of a subtotal gastrectomy in keeping with gastric bypass surgery. Surgical anastomosis seen in the small bowel loops in the left mid abdomen. Moderate amount of fecal material and fluid is seen in the left hemicolon. The appendix is visualized and appears normal. Normal abdominal aorta. Normal inferior vena cava. Normal retroperitoneum. Normal urinary bladder. There is absence of the uterus consistent with a prior hysterectomy. Normal abdominal wall. There are degenerative changes of the visualized lumbar spine. CT/CT ANGIO ABD&PEL W/O&W/DYE IMPRESSION: Diffuse fatty infiltration of the liver. Prior gastric surgery. Surgical anastomosis seen in the small bowel loops in the left mid abdomen. Electronically Signed: Ludwin Miranda MD at 8:47 EST , Service support ,
--- NOTE | 2021-09-07 07:45 | CASEMGMT ---
According to the [facility] website, the following are in-network tertiary facilities: [facility], [facility], [facility], [facility], [facility], [facility], [facility], [facility], [facility], and . Caprice MADSEN CM
[2021-09-07 08:44] LABS: Absolute Lymphocyte Count 0.82 X10^3/uL (0.83-4.51); Absolute Neutrophil Count 5.4 X10^3/uL (2.0-7.7); Basophil# 0.01 X10^3/uL; Basophil% 0.1 % (0-1); Hematocrit 18.1 % (37-47); Lymphocyte # 0.82 X10^3/ul (0.83-4.51); Lymphocyte % 12.1 % (19-41); Mean Corp Hgb Conc 33.1 g/dL (32-36); Mean Corpuscular Hgb 29.7 pg (27.0-32.0); Mean Corpuscular Volume 89.6 fL (81-99); Mean Platelet Vol. 9.3 fl (6.2-12.0); Monocyte# 0.52 X10^3/uL; Monocyte% 7.7 % (0-10); NRBC Flagged by Analyzer 0 % (0-5); Neutrophil # 5.38 X10^3/uL (2.7-7.7); Neutrophil % 79.5 % (47-70); Platelet Count 138 K/mm3 (150-450); RBC Distribution Width CV 15.9 % (11.6-14.6); Red Blood Count 2.02 M/mm3 (4.2-5.4); White Blood Count 6.8 K/mm3 (4.4-11.0)
[2021-09-07 09:26] LABS: Anion Gap 6 (5-15); BUN 30 mg/dL (7-18); BUN/Creat Ratio 38.9 RATIO (10-20); Calcium,Total 6.8 mg/dL (8.5-10.1); Chloride 109 mmol/L (98-107); Creatinine, Serum 0.77 mg/dL (0.55-1.02); EST Glomerular Filtration Rate 80 mL/min (>60); Est Glom Filt Rate - Afr Amer 97 mL/min (>60); Estimated Creatinine Clearance 62.66 ml/min; Glucose 135 mg/dL (74-106); Sodium Level 138 mmol/L (136-145)
[2021-09-07] MEDS: 0.9% Normal Saline 1,000 ML 999 ML IV (11:00)
[2021-09-07] MEDS: Magnesium Citrate 300 ML PO (11:47)
--- NOTE | 2021-09-07 18:55 | PN.HOSP_ITS ---
Subjective Subjective Has had some difficulty today with severe anemia. She is continued to have significant bleeding so she was transfused so far 3 units today she seems much better during my examination Objective Data Objective Data Vital Signs: Vital Signs Temp Pulse Resp BP Pulse Ox 98.3 F 81 18 118/57 L 97 09/07/21 16:55 09/07/21 16:55 09/07/21 16:55 09/07/21 16:55 09/07/21 16:55 Oxygen Delivery Method Room Air Weight: 175 lb 11.335 oz Body Mass Index (BMI) 31.1 Intake & Output: Intake and Output for Last 24 Hours 09/06/21 09/07/21 09/08/21 03:59 03:59 03:59 Intake Total 535 / 535 3262.83 / 3262.83 4084.00 / 4084.00 Output Total 600 / 600 Balance 535 / 535 3262.83 / 3262.83 3484.00 / 3484.00 Lab / Micro Data Result Diagrams: 09/07/21 08:38 09/07/21 08:38 Labs: Laboratory Results - last 24 hr 09/05/21 22:15: Crossmatch See Detail 09/05/21 22:15: Crossmatch See Detail 09/05/21 22:15: Crossmatch See Detail 09/07/21 00:15: Hgb 6.6 L, Hct 19.6 L 09/07/21 08:38: WBC 6.8, RBC 2.02 L, Hgb 6.0 L*, Hct 18.1 L, MCV 89.6, MCH 29.7, MCHC 33.1, RDW Std Deviation 52.0 H, RDW Coeff of Sparkle 15.9 H, Plt Count 138 L, MPV 9.3, Immature Gran % (Auto) 0.600, Neut % (Auto) 79.5 H, Lymph % (Auto) 12.1 L, [place] % (Auto) 7.7, Eos % (Auto) 0.0, Baso % (Auto) 0.1, Absolute Neuts (auto) 5.4, Absolute Lymphs (auto) 0.82 L, Nucleated RBC % 0 09/07/21 08:38: Sodium 138, Potassium 4.0, Chloride 109 H, Carbon Dioxide 23.0, Anion Gap 6, BUN 30 H, Creatinine 0.77, Estim Creat Clear Calc 62.66, Est GFR (MDRD) Af Amer 97, Est GFR (MDRD) Non-Af 80, BUN/Creatinine Ratio 38.9 H, Glucose 135 H, Calcium 6.8 L Micro: Microbiology 09/05/21 22:15 Nasal Secretion SARS-CoV-2 Antigen (Rapid) - Final SARS-CoV-2 (COVID 19) 09/06/21 00:43 Stool Stool Occult Blood (EDWIN) - Final Radiography Diagnostic Testing: Radiology Impression Abdomen/Pelvis CTA 09/07/21 07:43 IMPRESSION: Diffuse fatty infiltration of the liver. Prior gastric surgery. Surgical anastomosis seen in the small bowel loops in the left mid abdomen. Electronically Signed: Ludwin Miranda MD at 8:47 EST , Service support , Physical Exam Const alert, oriented x3 and no apparent distress General Appearance: cooperative HEENT normocephalic and moist oral mucous membranes Eyes PERRL, EOMs intact bilaterally and conjunctivae normal Eyes Narrative: Pale conjunctiva Neck supple and no JVD Resp normal respiratory effort, no retractions, no use of accessory muscles and clear to auscultation bilaterally Auscultation: Negative for crackles, rales, rhonchi or wheezes Cardio regular rate, regular rhythm, S1 normal heart sound, S2 normal heart sound and no murmurs GI soft to palpation, non-tender and non-distended; Negative for hepatosplenomegaly Extremity no clubbing, cyanosis or edema Skin no rashes or lesions noted Neuro no focal motor deficits and no sensory deficits noted Psych affect normal Appearance: appropriate Assessment & Plan Assessment/Plan (1) Melena: (2) GI bleed: QUALIFIERS: GI bleed type/associated pathology: melena Qualified Code(s): K92.1 - Melena (3) ABLA (acute blood loss anemia): (4) COVID-19: (5) Orthostatic hypotension: PLAN: 1. Acute blood loss anemia secondary to an upper GI bleed ?He does have a history of a Ariadna-en-Y gastric bypass ?We will consult gastroenterology for possible scope and see if he can see the Ariadna limb and check for anastomotic bleed ?Bleeding scan was unremarkable ?Discussed with the patient that if we cannot get the bleeding under control that she may need to be transferred for IR intervention ?We will continue to monitor hemoglobin and transfuse accordingly ?Continue with PPI 2. Asymptomatic COVID-19 ?She is not hypoxic or have any issues therefore will ?She has vaccinated ?She is unaware of source DVT: SCDs Charges/Coding Visit Charges Inpatient E&M: 54999 Subs Hosp L2
[2021-09-08] VITALS (15 sets, daily range): BP systolic 97–134; BP diastolic 52–65; PULSE 71–98; RESP 16–18; TEMP 36.2–39.2; O2SAT 88–100; BMI 31.1
[2021-09-08] MEDS: 0.9% Normal Saline 1,000 ML 100 ML IV ×3 (01:17→21:53)
[2021-09-08 04:01] LABS: Hematocrit 28.3 % (37-47); Hemoglobin 9.7 g/dL (12.0-15.0)
[2021-09-08 05:27] LABS: Absolute Lymphocyte Count 1.35 X10^3/uL (0.83-4.51); Absolute Neutrophil Count 5.4 X10^3/uL (2.0-7.7); Basophil# 0.02 X10^3/uL; Basophil% 0.3 % (0-1); Eosinophil# 0.07 X10^3/uL; Eosinophils% 0.9 % (0-5); Hematocrit 25.9 % (37-47); Hemoglobin 8.8 g/dL (12.0-15.0); Lymphocyte # 1.35 X10^3/ul (0.83-4.51); Lymphocyte % 17.9 % (19-41); Mean Corpuscular Hgb 30.8 pg (27.0-32.0); Mean Corpuscular Volume 90.6 fL (81-99); Mean Platelet Vol. 9.9 fl (6.2-12.0); Monocyte# 0.66 X10^3/uL; Monocyte% 8.7 % (0-10); NRBC Flagged by Analyzer 0 % (0-5); Neutrophil # 5.42 X10^3/uL (2.7-7.7); Neutrophil % 71.8 % (47-70); Platelet Count 138 K/mm3 (150-450); RBC Distribution Width CV 15.8 % (11.6-14.6); RBC Distribution Width SD 51.8 fl (35.1-43.9); Red Blood Count 2.86 M/mm3 (4.2-5.4); White Blood Count 7.6 K/mm3 (4.4-11.0)
[2021-09-08 05:46] LABS: Anion Gap 4 (5-15); BUN 20 mg/dL (7-18); BUN/Creat Ratio 34.2 RATIO (10-20); Calcium,Total 6.9 mg/dL (8.5-10.1); Chloride 113 mmol/L (98-107); Creatinine, Serum 0.58 mg/dL (0.55-1.02); EST Glomerular Filtration Rate 111 mL/min (>60); Est Glom Filt Rate - Afr Amer 134 mL/min (>60); Estimated Creatinine Clearance 83.19 ml/min; Glucose 97 mg/dL (74-106); Potassium 4.3 mmol/L (3.5-5.1); Sodium Level 142 mmol/L (136-145)
[2021-09-08] MEDS: 0.9% Saline Lock 10 ML Syringe IV (05:53)
--- NOTE | 2021-09-08 05:55 | EKG12_ITS ---
Test Reason : PRE-OP Blood Pressure : / mmHG Vent. Rate : 083 BPM Atrial Rate : 083 BPM P-R Int : 140 ms QRS Dur : 080 ms QT Int : 352 ms P-R-T Axes : 029 030 053 degrees QTc Int : 413 ms Normal sinus rhythm Normal ECG When compared with ECG of 05-SEP-2021 22:15, No significant change was found Confirmed by JAYA CRANE, RONAL ([id number]), clinical editor BERT HARVEY ([id number]) on 09/16/2021 2:04:13 PM Referred By: MAGO Confirmed By:PADMINI LAKE MD
[2021-09-08 13:20] LABS: Pathologist Review Reviewed
--- NOTE | 2021-09-08 15:33 | PCM.PN.HOSP ---
Subjective Subjective Feels better today than she did yesterday her hemoglobin this morning was 8.8, will recheck. Objective Data Objective Data Vital Signs: Vital Signs Temp Pulse Resp BP Pulse Ox 97.1 F L 72 18 129/57 H 97 09/08/21 14:55 09/08/21 14:55 09/08/21 14:55 09/08/21 14:55 09/08/21 14:55 Oxygen Delivery Method Room Air Weight: 175 lb 11.335 oz Body Mass Index (BMI) 31.1 Intake & Output: Intake and Output for Last 24 Hours 09/07/21 09/08/21 09/09/21 03:59 03:59 03:59 Intake Total 3262.83 / 3262.83 5615.50 / 5615.50 1058.5 / 1058.5 Output Total 2800 / 2800 Balance 3262.83 / 3262.83 2815.50 / 2815.50 1058.5 / 1058.5 Lab / Micro Data Result Diagrams: 09/08/21 16:24 09/08/21 04:14 Labs: Laboratory Results - last 24 hr 09/05/21 22:15: Crossmatch See Detail 09/07/21 03:05: Hgb 9.7 L, Hct 28.3 L 09/07/21 08:38: Diff Path Review Reviewed 09/08/21 04:14: WBC 7.6, RBC 2.86 L, Hgb 8.8 L, Hct 25.9 L, MCV 90.6, MCH 30.8, MCHC 34.0, RDW Std Deviation 51.8 H, RDW Coeff of Sparkle 15.8 H, Plt Count 138 L, MPV 9.9, Immature Gran % (Auto) 0.400, Neut % (Auto) 71.8 H, Lymph % (Auto) 17.9 L, [place] % (Auto) 8.7, Eos % (Auto) 0.9, Baso % (Auto) 0.3, Absolute Neuts (auto) 5.4, Absolute Lymphs (auto) 1.35, Nucleated RBC % 0 09/08/21 04:14: Sodium 142, Potassium 4.3, Chloride 113 H, Carbon Dioxide 25.0, Anion Gap 4 L, BUN 20 H, Creatinine 0.58, Estim Creat Clear Calc 83.19, Est GFR (MDRD) Af Amer 134, Est GFR (MDRD) Non-Af 111, BUN/Creatinine Ratio 34.2 H, Glucose 97, Calcium 6.9 L Micro: Microbiology 09/05/21 22:15 Nasal Secretion SARS-CoV-2 Antigen (Rapid) - Final SARS-CoV-2 (COVID 19) 09/06/21 00:43 Stool Stool Occult Blood (EDWIN) - Final Physical Exam Const alert, oriented x3 and no apparent distress General Appearance: cooperative HEENT normocephalic and moist oral mucous membranes Eyes PERRL, EOMs intact bilaterally and conjunctivae normal Neck supple and no JVD Resp normal respiratory effort, no retractions, no use of accessory muscles and clear to auscultation bilaterally Auscultation: Negative for crackles, rales, rhonchi or wheezes Cardio regular rate, regular rhythm, S1 normal heart sound, S2 normal heart sound and no murmurs GI soft to palpation, non-tender and non-distended; Negative for hepatosplenomegaly Extremity no clubbing, cyanosis or edema Skin no rashes or lesions noted Neuro no focal motor deficits and no sensory deficits noted Psych affect normal Appearance: appropriate Assessment & Plan Assessment/Plan (1) Melena: (2) GI bleed: QUALIFIERS: GI bleed type/associated pathology: melena Qualified Code(s): K92.1 - Melena (3) ABLA (acute blood loss anemia): (4) COVID-19: (5) Orthostatic hypotension: PLAN: 1. Acute blood loss anemia secondary to an upper GI bleed ?She does have a history of a Ariadna-en-Y gastric bypass ?Appreciate GIs assistance, upper GI scope was unremarkable however the duodenum to jejunum limb could not be examined ?colonoscopy today was also unremarkable though there was signs of fresh blood as well as old blood ?We will recheck hemoglobin today as well as in the morning ?We will start octreotide ?Bleeding scan was unremarkable ?Discussed with the patient that if we cannot get the bleeding under control that she may need to be transferred for IR intervention ?We will continue to monitor hemoglobin and transfuse accordingly ?Continue with PPI 2. Asymptomatic COVID-19 ?She is not hypoxic or have any issues therefore will not treat ?She is vaccinated ?She is unaware of source DVT: SCDs Charges/Coding Visit Charges Inpatient E&M: 57139 Subs Hosp L2
[2021-09-08 16:37] LABS: Hematocrit 25.3 % (37-47); Hemoglobin 8.5 g/dL (12.0-15.0); POSITIVE COUNT YES
[2021-09-08] MEDS: Acetaminophen 325 MG Tablet 650 MG PO (22:03)
[2021-09-09] VITALS (17 sets, daily range): BP systolic 100–128; BP diastolic 51–87; PULSE 71–101; RESP 16–18; TEMP 36.7–38.1; O2SAT 93–99
[2021-09-09] MEDS: Acetaminophen 325 MG Tablet 650 MG PO ×2 (05:25→16:19)
[2021-09-09 07:11] LABS: Absolute Lymphocyte Count 0.85 X10^3/uL (0.83-4.51); Absolute Neutrophil Count 8.4 X10^3/uL (2.0-7.7); Basophil# 0.02 X10^3/uL; Basophil% 0.2 % (0-1); Eosinophil# 0.12 X10^3/uL; Eosinophils% 1.2 % (0-5); Hematocrit 19.3 % (37-47); Hemoglobin 6.6 g/dL (12.0-15.0); Lymphocyte # 0.85 X10^3/ul (0.83-4.51); Lymphocyte % 8.6 % (19-41); Mean Corp Hgb Conc 34.2 g/dL (32-36); Mean Corpuscular Hgb 31.1 pg (27.0-32.0); Mean Platelet Vol. 9.7 fl (6.2-12.0); Monocyte# 0.48 X10^3/uL; Monocyte% 4.8 % (0-10); NRBC Flagged by Analyzer 0 % (0-5); Neutrophil # 8.39 X10^3/uL (2.7-7.7); Neutrophil % 84.7 % (47-70); Platelet Count 154 K/mm3 (150-450); RBC Distribution Width CV 16.5 % (11.6-14.6); RBC Distribution Width SD 52.5 fl (35.1-43.9); Red Blood Count 2.12 M/mm3 (4.2-5.4); White Blood Count 9.9 K/mm3 (4.4-11.0)
[2021-09-09] MEDS: 0.9% Normal Saline 1,000 ML 100 ML IV ×2 (07:41→22:09)
--- NOTE | 2021-09-09 13:54 | OP.EGD_ITS ---
Patient Name: Mariely Rogers Procedure Date: 09/08/2021 12:24 PM Date of : 1960 Age: 60 Procedure: Upper GI endoscopy Indications: Failure to respond to medical treatment Providers: Remi Mancini DO Medicines: See the Anesthesia note for documentation of the administered medications Patient Profile: The patient is status-post Ariadna-en-Y gastric bypass surgery. Complications: No immediate complications. Procedure: Pre-Anesthesia Assessment: - Prior to the procedure, a History and Physical was performed, and patient medications and allergies were reviewed. The patient is competent. The risks and benefits of the procedure and the sedation options and risks were discussed with the patient. All questions were answered and informed consent was obtained. Patient identification and proposed procedure were verified by the physician in the pre-procedure area. Mental Status Examination: alert and oriented. Airway Examination: normal oropharyngeal airway and neck mobility. Respiratory Examination: clear to auscultation. CV Examination: normal. Prophylactic Antibiotics: The patient does not require prophylactic antibiotics. Prior Anticoagulants: The patient has taken no previous anticoagulant or antiplatelet agents. ASA Grade Assessment: II - A patient with mild systemic disease. After reviewing the risks and benefits, the patient was deemed in satisfactory condition to undergo the procedure. The anesthesia plan was to use moderate sedation / analgesia (conscious sedation). Immediately prior to administration of medications, the patient was re-assessed for adequacy to receive sedatives. The heart rate, respiratory rate, oxygen saturations, blood pressure, adequacy of pulmonary ventilation, and response to care were monitored throughout the procedure. The physical status of the patient was re-assessed after the procedure. After obtaining informed consent, the endoscope was passed under direct vision. Throughout the procedure, the patient's blood pressure, pulse, and oxygen saturations were monitored continuously. The pediatric colonoscope was introduced through the mouth, and advanced to the mid-jejunum. The upper GI endoscopy was performed with moderate difficulty due to post-surgical anatomy. The patient tolerated the procedure well. Moderate Sedation: Moderate (conscious) sedation was administered by the endoscopy nurse and supervised by the endoscopist. The patient's oxygen saturation, heart rate, blood pressure and response to care were monitored. Total physician intraservice time was 15 minutes. Scope In: 12:35:51 PM Scope Withdrawal Time 0 hours 10 minutes 41 seconds Scope Out: 1:56:22 PM Total Procedure Duration Time 1 hour 20 minutes 31 seconds Findings: The examined esophagus was normal. Evidence of a Ariadna-en-Y gastrojejunostomy was found. The gastrojejunal anastomosis was characterized by healthy appearing mucosa. This was traversed. The iesys-tj-wvhyfrq limb was characterized by healthy appearing mucosa. The ildpednd-rk-koqvayo limb was not examined as it could not be reached. The examined jejunum was normal. Impression: - Normal esophagus. - Ariadna-en-Y gastrojejunostomy with gastrojejunal anastomosis characterized by healthy appearing mucosa. - Normal examined jejunum. - No specimens collected. Recommendation: - Discharge patient to home. - NPO. - Continue present medications. Procedure Code(s): --- Professional --- 72453, Esophagogastroduodenoscopy, flexible, transoral; diagnostic, including collection of specimen(s) by brushing or washing, when performed (separate procedure) 77238, 59, Moderate sedation services provided by the same physician or other qualified health care team assistant performing the diagnostic or therapeutic service that the sedation supports, requiring the presence of an independent trained observer to assist in the monitoring of the patient's level of consciousness and physiological status; initial 15 minutes of intraservice time, patient age 5 years or older CPT copyright 2017 [employer]. All rights reserved. The codes documented in this report are preliminary and upon personal lines sales executive review may be revised to meet current compliance requirements. Remi Mancini DO 09/09/2021 1:54:01 PM This report has been signed electronically. Number of Addenda: 1 Note Initiated On: 09/08/2021 12:24 PM Addendum Number: 1 Addendum Date: 05/12/2022 6:07:18 AM MAC was used instead of moderate sedation for the patient. Remi Mancini DO 05/12/2022 6:07:22 AM This report has been signed electronically.
--- NOTE | 2021-09-09 13:55 | OP.CCLET_ITS ---
05/12/2022 Phyllis Lujan [address] [place] [address] Re : Upper GI endoscopy procedure for Mariely Rogers Dear Dr. Lujan This procedure was performed on Wednesday, September 08, 2021. My impressions and recommendations are as follows: Impressions : - Normal esophagus. - Ariadna-en-Y gastrojejunostomy with gastrojejunal anastomosis characterized by healthy appearing mucosa. - Normal examined jejunum. - No specimens collected. Recommendations : - Discharge patient to home. - NPO. - Continue present medications. My findings are described in the full procedure note, which is enclosed. If I can be of further assistance, please feel free to contact me at . Sincerely, Remi Mancini, 09/09/2021 1:54:01 PM This report has been signed electronically.
--- NOTE | 2021-09-09 14:43 | PN.GI_ITS ---
Subjective Subjective Patient was seen and examined at the bedside. She has not had any stools today. She is status post EGD and colonoscopy yesterday for the acute recurrent GI bleed. Hemoglobin this morning was 6. She received 2 units of packed red blood cells. She was started on octreotide yesterday. I had a long conversation with her and her explaining to her why I think GI bleed is most likely at based on the investigations that we have done thus far. Objective Data Objective Data Vital Signs: Vital Signs Temp Pulse Resp BP Pulse Ox 99.9 F H 74 16 112/56 L 99 09/09/21 14:06 09/09/21 14:06 09/09/21 14:06 09/09/21 14:06 09/09/21 14:06 Oxygen Flow Rate (L/min) 2 Oxygen Delivery Method Nasal Cannula Weight: 175 lb 11.335 oz Body Mass Index (BMI) 31.1 Intake & Output: Intake and Output for Last 24 Hours 09/07/21 09/08/21 09/09/21 23:59 23:59 23:59 Intake Total 5338.50 / 5338.50 2830.0 / 3130.0 3974.84 / 3974.84 Output Total 2800 / 2800 1400 / 2075 3175 / 3175 Balance 2538.50 / 2538.50 1430.0 / 1055.0 799.84 / 799.84 Lab / Micro Data Result Diagrams: 09/09/21 07:00 09/08/21 04:14 Labs: Laboratory Results - last 24 hr 09/05/21 22:15: Crossmatch See Detail 09/08/21 16:24: Hgb 8.5 L, Hct 25.3 L 09/09/21 07:00: WBC 9.9, RBC 2.12 L, Hgb 6.6 L, Hct 19.3 L, MCV 91.0, MCH 31.1, MCHC 34.2, RDW Std Deviation 52.5 H, RDW Coeff of Sparkle 16.5 H, Plt Count 154, MPV 9.7, Immature Gran % (Auto) 0.500, Neut % (Auto) 84.7 H, Lymph % (Auto) 8.6 L, [place] % (Auto) 4.8, Eos % (Auto) 1.2, Baso % (Auto) 0.2, Absolute Neuts (auto) 8.4 H, Absolute Lymphs (auto) 0.85, Nucleated RBC % 0 09/09/21 08:10: Blood Type O POSITIVE, Antibody Screen NEGATIVE, Crossmatch See Detail Micro: Microbiology 09/05/21 22:15 Nasal Secretion SARS-CoV-2 Antigen (Rapid) - Final SARS-CoV-2 (COVID 19) 09/06/21 00:43 Stool Stool Occult Blood (EDWIN) - Final Physical Exam Const alert General Appearance: cooperative Orientation / Consciousness: oriented to person HEENT hearing grossly normal bilaterally Head and Scalp: normal to inspection Face and Sinus: face symmetric Nose: external nose normal Mouth: oral and palatal mucosa normal Eyes conjunctivae normal General Eye: normal appearance of both eyes Neck full ROM General: normal visual inspection Lymph Lymphatic: no lymphadenopathy noted Chest inspection of chest normal and palpation of chest normal Chest: symmetrical chest wall rise Resp normal respiratory effort Effort and Inspection: able to speak in complete sentences Cardio regular rate GI non-distended Percussion: normal to percussion Rectal Exam: deferred Neuro Speech: speech normal Gait (Neuro): normal gait Assessment & Plan Assessment/Plan (1) GI bleed: QUALIFIERS: GI bleed type/associated pathology: melena Qualified Code(s): K92.1 - Melena PLAN: I explained to the patient that we can actually see what appears to be melena in the small bowel distal to the area that our scope can get to. I told her that she likely needs a capsule endoscopy and a deep enteroscopy with a single balloon or double-balloon enteroscope. We have performed a CT angiography and there was no sign of active bleeding. At this time she was still remains on octreotide. I told her that plan what I would suggest would be to stop the octreotide and if she does have recurrent bleeding after stopping octreotide then she likely will need to be transferred to an institution that can either perform IR guided hemostasis or can perform deep enteroscopy (2) Acute anemia: PLAN: Awaiting repeat hemoglobin after transfusion of packed red blood cells for hemoglobin of 6.6. She was okay with the plan at this time. I will call her and keep him updated. Charges/Coding Visit Charges Inpatient E&M: 03723 Subs Hosp L3
--- NOTE | 2021-09-09 18:16 | PN.HOSP_ITS ---
Subjective Subjective Feels better now that she is completing her second unit of blood today. Had extensive discussion with her in terms of the plan for different outcomes. Objective Data Objective Data Vital Signs: Vital Signs Temp Pulse Resp BP Pulse Ox 99.7 F H 77 16 116/60 95 09/09/21 16:40 09/09/21 16:40 09/09/21 16:40 09/09/21 16:40 09/09/21 16:40 Oxygen Flow Rate (L/min) 2 Oxygen Delivery Method Room Air Weight: 175 lb 11.335 oz Body Mass Index (BMI) 31.1 Intake & Output: Intake and Output for Last 24 Hours 09/08/21 09/09/21 09/10/21 03:59 03:59 03:59 Intake Total 5615.50 / 5615.50 2698.5 / 2698.5 3756.38 / 3756.38 Output Total 2800 / 2800 2075 / 2075 4650 / 4650 Balance 2815.50 / 2815.50 623.5 / 623.5 -893.62 / -893.62 Lab / Micro Data Result Diagrams: 09/09/21 07:00 09/08/21 04:14 Labs: Laboratory Results - last 24 hr 09/05/21 22:15: Crossmatch See Detail 09/09/21 07:00: WBC 9.9, RBC 2.12 L, Hgb 6.6 L, Hct 19.3 L, MCV 91.0, MCH 31.1, MCHC 34.2, RDW Std Deviation 52.5 H, RDW Coeff of Sparkle 16.5 H, Plt Count 154, MPV 9.7, Immature Gran % (Auto) 0.500, Neut % (Auto) 84.7 H, Lymph % (Auto) 8.6 L, [place] % (Auto) 4.8, Eos % (Auto) 1.2, Baso % (Auto) 0.2, Absolute Neuts (auto) 8.4 H, Absolute Lymphs (auto) 0.85, Nucleated RBC % 0 09/09/21 08:10: Blood Type O POSITIVE, Antibody Screen NEGATIVE, Crossmatch See Detail Micro: Microbiology 09/05/21 22:15 Nasal Secretion SARS-CoV-2 Antigen (Rapid) - Final SARS-CoV-2 (COVID 19) 09/06/21 00:43 Stool Stool Occult Blood (EDWIN) - Final Physical Exam Narrative Const alert, oriented x3 and no apparent distress General Appearance: cooperative HEENT normocephalic and moist oral mucous membranes Eyes PERRL, EOMs intact bilaterally and conjunctivae normal Neck supple and no JVD Resp normal respiratory effort, no retractions, no use of accessory muscles and clear to auscultation bilaterally Auscultation: Negative for crackles, rales, rhonchi or wheezes Cardio regular rate, regular rhythm, S1 normal heart sound, S2 normal heart sound and no murmurs GI soft to palpation, non-tender and non-distended; Negative for hepatosplenomegaly Extremity no clubbing, cyanosis or edema Skin no rashes or lesions noted Neuro no focal motor deficits and no sensory deficits noted Psych affect normal Appearance: appropriate Assessment & Plan Assessment/Plan (1) Melena: (2) GI bleed: QUALIFIERS: GI bleed type/associated pathology: melena Qualified Code(s): K92.1 - Melena (3) ABLA (acute blood loss anemia): (4) COVID-19: (5) Orthostatic hypotension: PLAN: 1. Acute blood loss anemia secondary to an upper GI bleed ?She does have a history of a Ariadan-en-Y gastric bypass ?Appreciate GIs assistance, upper GI scope was unremarkable however the duodenum to jejunum limb could not be examined ?colonoscopy today was also unremarkable though there was signs of fresh blood as well as old blood ?We will recheck hemoglobin today as well as in the morning ? Octreotide discontinued by GI ?Bleeding scan was unremarkable ?Discussed with the patient that if we cannot get the bleeding under control that she may need to be transferred for IR intervention ?We will continue to monitor hemoglobin and transfuse accordingly ?Continue with PPI 2. Asymptomatic COVID-19 ?She is not hypoxic or have any issues therefore will not treat ?She is vaccinated ?She is unaware of source DVT: SCDs Charges/Coding Visit Charges Inpatient E&M: 08874 Subs Hosp L2
[2021-09-09 18:34] LABS: Hemoglobin 9.5 g/dL (12.0-15.0)
[2021-09-10] VITALS (8 sets, daily range): BP systolic 121–131; BP diastolic 62–82; PULSE 63–88; RESP 16–18; TEMP 37.2–37.6; O2SAT 92–96
[2021-09-10] MEDS: Benzonatate 100 MG Capsule PO ×2 (03:37→09:42)
[2021-09-10 05:44] LABS: Absolute Lymphocyte Count 0.86 X10^3/uL (0.83-4.51); Absolute Neutrophil Count 6.5 X10^3/uL (2.0-7.7); Basophil# 0.01 X10^3/uL; Basophil% 0.1 % (0-1); Eosinophil# 0.27 X10^3/uL; Eosinophils% 3.3 % (0-5); Hemoglobin 8.7 g/dL (12.0-15.0); Lymphocyte # 0.86 X10^3/ul (0.83-4.51); Lymphocyte % 10.6 % (19-41); Mean Corp Hgb Conc 33.5 g/dL (32-36); Mean Corpuscular Hgb 29.6 pg (27.0-32.0); Mean Corpuscular Volume 88.4 fL (81-99); Mean Platelet Vol. 10.2 fl (6.2-12.0); Monocyte# 0.39 X10^3/uL; Monocyte% 4.8 % (0-10); NRBC Flagged by Analyzer 0 % (0-5); Neutrophil # 6.53 X10^3/uL (2.7-7.7); Neutrophil % 80.8 % (47-70); Platelet Count 190 K/mm3 (150-450); RBC Distribution Width CV 16.7 % (11.6-14.6); RBC Distribution Width SD 52.7 fl (35.1-43.9); Red Blood Count 2.94 M/mm3 (4.2-5.4); White Blood Count 8.1 K/mm3 (4.4-11.0)
[2021-09-10] MEDS: 0.9% Normal Saline 1,000 ML 100 ML IV (06:50)
[2021-09-10] MEDS: Furosemide 20 MG/2 ML VIAL IV (10:27)
[2021-09-10 12:19] LABS: Hemoglobin 9.5 g/dL (12.0-15.0)
--- NOTE | 2021-09-10 13:19 | PCM.DC ---
Discharge Instructions Diet Discharge Diet: No restrictions Activity Discharge Activity: Return to Normal Activity Dressing / Incision Call your doctor if you observe: Fever of 101 or Higher, Shortness of breath, Dizziness, Fainting spells, Swelling in the ankles, Chest pain and Increased palpitations (irregular heartbeat) Follow Up Care Test Results: Test results from this visit will be discussed in further detail at your follow-up appointment, if applicable. Discharge Plan Admission Admit Date/Time: 09/06/21 00:59 Attending Provider: Juan Ramon Weir Primary Care Provider: Phyllis Lujan Consulting Providers: Remi Mancini Instructions Additional Instructions / Restrictions: Obtain a CBC as an outpatient to monitor your anemia Discharge Orders/Prescriptions Prescriptions: Continued omeprazole 40 mg capsule,delayed release(DR/EC) 40 mg PO DAILY RF: 0 multivitamin 1 EACH tablet 1 ea PO DAILY RF: 0 polyethylene glycol 3350 17 GM packet 17 gm PO DAILY RF: 0 cholecalciferol (vitamin D3) 1,000 UNIT tablet 5,000 unit PO DAILY RF: 0 Discontinued diclofenac sodium 50 mg tablet,delayed release (DR/EC) 50 mg PO BID RF: 0 cefadroxil 500 MG capsule 500 mg PO BID Qty: 8 RF: 0 Referrals / Follow Up: Phyllis Lujan DO [Primary Care Provider] - Within 1 Week Remi Mancini DO [STAFF PHYSICIAN] - Within 2 Weeks Disposition Disposition (needs filled in before D/C Order can be placed): Home, Self Care
--- NOTE | 2021-09-10 14:30 | DS.PCM_ITS ---
Providers Date of Admission: 09/06/21 Primary Care Physician: Dr. Phyllis Lujan DO Consultations 09/06/21 02:37 Consult: Gastroenterology Routine Consulting Provider: Remi Mancini Reason for Consult: ABLA EMERGENT Consult: No MD Notified: Yes Date Notified: 09/06/21 Time Notified: 06:51 Method of Notification: Text Reason For Visit: ABLA Diagnosis Discharge Diagnosis (1) Melena: Status: Acute Code(s): K92.1 - Melena (2) GI bleed: Status: Acute Code(s): K92.2 - Gastrointestinal hemorrhage, unspecified Qualifiers: GI bleed type/associated pathology: melena Qualified Code(s): K92.1 - Melena (3) ABLA (acute blood loss anemia): Status: Acute Code(s): D62 - Acute posthemorrhagic anemia (4) COVID-19: Status: Acute Code(s): U07.1 - COVID-19 (5) Orthostatic hypotension: Status: Acute Code(s): I95.1 - Orthostatic hypotension Medications at Discharge Home Medications cholecalciferol (vitamin D3) 5,000 unit PO DAILY 06/23/16 multivitamin 1 ea PO DAILY 06/23/16 polyethylene glycol 3350 17 gm PO DAILY 06/23/16 omeprazole 40 mg capsule,delayed release 40 mg PO DAILY 11/07/19 Hospital Course Operations None Procedures Colonoscopy and EGD Summary of Care Provided Minutes Spent on Discharge: 39 Hospital Course: Per HPI: FLORENTIN INGRAM, is a 60 F with a significant history of hypothyroidism; and arthritis who presents to the emergency department with black tarry stool x2. Her symptoms occurred 2 hours before presentation. Associated with her symptoms is lightheadedness; chills and headache. Further, she reports headache. COVID-19 vaccination status; patient was vaccinated with 5. She has had 2 doses of Pfizer in December and in january 2021. She has not had a booster yet. Rectal exams was done by ED doctor and reported as unremarkable. Hospital Course: 1. Acute blood loss anemia secondary to an upper GI bleed ?She does have a history of a Ariadna-en-Y gastric bypass ?Appreciate GIs assistance, upper GI scope was unremarkable however the duodenum to jejunum limb could not be examined ?colonoscopy today was also unremarkable though there was signs of fresh blood as well as old blood ?We will recheck hemoglobin today as well as in the morning ? Octreotide discontinued by GI ?Bleeding scan was unremarkable ?Discussed with the patient that if we cannot get the bleeding under control t hat she may need to be transferred for IR intervention ?We will continue to monitor hemoglobin and transfuse accordingly ?Continue with PPI ? 09/10/2021: Hemoglobin has stabilized on repeat dates over 9. She denies any further bloody bowel movements. Plan will be for discharge today and she will need to follow-up with GI in the next 2 weeks. I also recommend a CBC as an o utpatient by her PCP for further monitoring. I did advise her that if she have any further bloody bowel movements to go to a hospital unfortunately we are unable to manage her bleed here therefore if she does come here I would recommend transfer to a tertiary care center. I did discuss with her the plan for discharge today and she expressed understanding of the risk and benefits of going home and would like to go home today. 2. Asymptomatic COVID-19 ?She is not hypoxic or have any issues therefore will not treat ?She is vaccinated ?She is unaware of source Physical Exam Narrative Const alert, oriented x3 and no apparent distress General Appearance: cooperative HEENT normocephalic and moist oral mucous membranes Eyes PERRL, EOMs intact bilaterally and conjunctivae normal Neck supple and no JVD Resp normal respiratory effort, no retractions, no use of accessory muscles and clear to auscultation bilaterally Auscultation: Negative for crackles, rales, rhonchi or wheezes Cardio regular rate, regular rhythm, S1 normal heart sound, S2 normal heart sound and no murmurs GI soft to palpation, non-tender and non-distended; Negative for hepatosplenomegaly Extremity no clubbing, cyanosis or edema Skin no rashes or lesions noted Neuro no focal motor deficits and no sensory deficits noted Psych affect normal Appearance: appropriate Weight / BMI Weight Weight: 175 lb 11.335 oz Body Mass Index (BMI) 31.1 ABG / Lab / Microbiology Data Result Diagrams: 09/10/21 12:00 09/08/21 04:14 Laboratory: Laboratory Results - last 24 hr 09/09/21 08:10: Blood Type O POSITIVE, Antibody Screen NEGATIVE, Crossmatch See Detail 09/09/21 18:20: Hgb 9.5 L, Hct 27.0 L 09/10/21 04:29: WBC 8.1, RBC 2.94 L, Hgb 8.7 L, Hct 26.0 L, MCV 88.4, MCH 29.6, MCHC 33.5, RDW Std Deviation 52.7 H, RDW Coeff of Sparkle 16.7 H, Plt Count 190, MPV 10.2, Immature Gran % (Auto) 0.400, Neut % (Auto) 80.8 H, Lymph % (Auto) 10.6 L, [place] % (Auto) 4.8, Eos % (Auto) 3.3, Baso % (Auto) 0.1, Absolute Neuts (auto) 6.5, Absolute Lymphs (auto) 0.86, Nucleated RBC % 0 09/10/21 12:00: Hgb 9.5 L, Hct 28.0 L Microbiology: Microbiology 09/05/21 22:15 Nasal Secretion SARS-CoV-2 Antigen (Rapid) - Final SARS-CoV-2 (COVID 19) 09/06/21 00:43 Stool Stool Occult Blood ([facility]WIN) - Final D/C Instructions Discharge Diet: No restrictions Call your doctor if you observe: Fever of 101 or Higher, Shortness of breath, Dizziness, Fainting spells, Swelling in the ankles, Chest pain and Increased palpitations (irregular heartbeat) Meaningful Use Info Meaningful Use Diagnoses (Choose all that apply): None applicable Discharge Plan Admission Admit Date/Time: 09/06/21 00:59 Attending Provider: Juan Ramon Weir Primary Care Provider: Phyllis Lujan Consulting Providers: Remi Mancini Instructions Additional Instructions / Restrictions: Obtain a CBC as an outpatient to monitor your anemia Discharge Orders/Prescriptions Prescriptions: Continued omeprazole 40 mg capsule,delayed release(DR/EC) 40 mg PO DAILY RF: 0 multivitamin 1 EACH tablet 1 ea PO DAILY RF: 0 polyethylene glycol 3350 17 GM packet 17 gm PO DAILY RF: 0 cholecalciferol (vitamin D3) 1,000 UNIT tablet 5,000 unit PO DAILY RF: 0 Discontinued diclofenac sodium 50 mg tablet,delayed release (DR/EC) 50 mg PO BID RF: 0 cefadroxil 500 MG capsule 500 mg PO BID Qty: 8 RF: 0 Referrals / Follow Up: Phyllis Lujan DO [Primary Care Provider] - Within 1 Week Ed Mancinin, DO [STAFF PHYSICIAN] - Within 2 Weeks Disposition Disposition (needs filled in before D/C Order can be placed): Home, Self Care Charges/Coding Visit Charges Inpatient E&M: 68629 Disch Hosp
== END 2021-09-10 16:29 | disposition home or self-care (01) | DRG 254 ==
LOC: ED 09-06 01:24 → PCU 09-06 02:57
PROVIDERS: Internal Medicine Gastroenterology; Admitting Provider Hospitalist; Emergency Provider Emergency Medicine; PCP Family Medicine; Visit Provider Family Medicine
PROC: 0DJ08ZZ Inspection of Upper Intestinal Tract, Via Natural or Artificial Opening Endoscopic (ICD-10-PCS; CPT 43235; principal; 2021-09-06 12:10)
DX: K92.1 Melena (principal); U07.1 COVID-19; D62 Acute posthemorrhagic anemia; I95.1 Orthostatic hypotension; K21.9 Gastro-esophageal reflux disease without esophagitis; E03.9 Hypothyroidism, unspecified; M19.90 Unspecified osteoarthritis, unspecified site; M10.9 Gout, unspecified; Z87.891 Personal history of nicotine dependence; Z98.84 Bariatric surgery status
CPT/HCPCS: 36415; 74174; 74177; 80048; 80076; 82274; 83605; 84484; 85014; 85018; 85025; 85610; 85730; 86850; 86900; 86901; 86920; 86922; 87426; 93005; 99251; 99285; J7030; J7040; P9016; Q9967; A4216; G0463; J1940; J2405; J3490

== ENCOUNTER 2021-10-14 09:07 | Outpatient (CLI) | payer MEDICAID, SELFPAY ==
--- NOTE | 2021-10-14 09:11 | BI_ITS ---
MAMMOGRAPHY - BILATERAL SCREENING REASON FOR EXAM: Female, 61 years old. Routine annual screening examination. PERTINENT HISTORY: Non-contributory. TECHNIQUE: Digital bilateral breast farrukh (3D mammographic acquisition) in the CC and MLO projections. 2-D mediolateral oblique (MLO) and craniocaudad (CC) views of both breasts were obtained. CAD: Full Field Digital Mammography with Computer Added Detection was performed. COMPARISON: Comparison is made with prior study dated 10/13/2020 and 10/03/2019. FINDINGS: Breast Composition: There are scattered areas of fibroglandular density. There are no dominant masses or suspicious calcifications. No other significant abnormalities are identified. There has been no significant change since the prior study. BI/SCRN MAMM (CAD)W/FARRUKH BILAT IMPRESSION: Stable bilateral screening mammogram. Yearly follow-up mammogram recommended. (A) ASSESSMENT CATEGORY: BIRADS Category 1: Negative. A letter regarding these results will be sent to the patient by the facility within 30 days. Approximately 10% of breast cancers are not detected by mammography. A normal mammogram should not delay biopsy of a clinically suspicious abnormality. [id number] Electronically Signed: Ludwin Miranda MD at 10:04 EST ,
== END 2021-10-14 23:59 | disposition home or self-care (01) ==
LOC: OPBI 09:08
PROVIDERS: PCP Family Medicine; Referring Provider Family Medicine; Visit Provider Family Medicine
DX: Z12.31 Encounter for screening mammogram for malignant neoplasm of breast (principal)
CPT/HCPCS: 77063; 77067

== ENCOUNTER 2021-10-15 12:37 | Day surgery (SDC) | payer MEDICAID, SELFPAY ==
[2021-10-15] VITALS (7 sets, daily range): BP systolic 136–150; BP diastolic 60–68; PULSE 60–69; RESP 15–64; TEMP 36.2–37.7; O2SAT 94–100; BMI 30.1
[2021-10-15] MEDS: Lactated Ringers 1,000 ML 15 ML IV (13:15)
--- NOTE | 2021-10-15 14:05 | PCM.HP.BLA ---
History and Physical Date of Admission: 10/15/21 HISTORY OF PRESENT ILLNESS 61 year old woman presents with worsening triggering in her right long finger. When her right long finger flexes into the palm, she has to use her other hand to straighten out the finger which is quite painful when it occurs. She has had steroid injections in the past. She is not interested in any more steroid injections. She did have triggering in the left hand involving the long and ring fingers. She underwent surgery in Jan, 2020 and her postoperative course was uneventful. Patient is right hand dominant. She presents at this time for further evaluation and treatment. She denies trauma. PAST MEDICAL HISTORY Trigger finger, left ring finger Trigger finger, left middle finger Carpal tunnel syndrome, bilateral Trigger finger, right ring finger Arthritis Back problem Gout Hypothyroid Osteoarthritis Vitamin deficiency PAST SURGICAL HISTORY gastric bypass hysterectomy back surgery carpal tunnel surgery trigger finger release incision tendon sheath for trigger finger left long finger and incision tendon sheath for trigger finger left ring finger - 01/21/20 ALLERGIES celecoxib [From Celebrex] ibuprofen MEDICATIONS Cholecalciferol (VIT D3) [Vitamin D] Multivitamin [Daily Multiple Vitamin] Polyethylene Glycol 3350 [Miralax] diclofenac s levothyroxine omeprazole FAMILY HISTORY Mother - Rheumatoid arthritis, Hypertension, Melanoma, Skin cancer, Thyroid disorder Father - Diabetes, Cancer, Arthritis, Heart disease Brother - Heart disease, High cholesterol Daughter - Thyroid disorder SOCIAL HISTORY Smoking Status: Former smoker REVIEW OF SYSTEMS General - Denies fever, fatigue, and weight loss. Eyes - Denies cataracts and glaucoma. ENT - Denies nasal congestion and sore throat. Endocrine - Denies excessive thirst and urination. Has thyroid disease. Skin - Denies suspicious lesions and skin cancer. Musculoskeletal - Has joint pain, joint stiffness, weakness of muscles and joints, and arthritis. Denies back pain. Has triggering right long finger. Had left long trigger finger and left ring trigger finger and right ring trigger finger release. Had bilateral carpal tunnel surgery. Neuro - Denies headaches. Cardiovascular - Denies chest pain, fatigue, and shortness of breath with exertion. Psych - Denies anxiety and depression. Respiratory - Denies chronic cough and shortness of breath. Gastrointestinal - Denies nausea, vomiting, diarrhea, and constipation. Hematologic - Denies abnormal bruising and bleeding. Genitourinary - Denies hematuria and urinary frequency. PHYSICAL EXAMINATION General - Alert and Oriented. HEENT - PERRL. EOMI. Throat is clear. Neck - Supple and nontender. No cervical adenopathy. Lungs - Clear to auscultation. Heart - Regular rate and rhythm. Abdomen - Soft and nondistended. Extremities - FROM. No axillary adenopathy. Radial pulses are palpable. Fingers are warm with good capillary refill. Minimal swelling seen. When she tries to make a fist, the pain in the right long finger increases. She cannot straighten out the finger on her own. She has to use her other hand to straighten out the finger. No audible clicking noted today. There is thickening in the area of the A1 alma in the distal palmar crease with some tenderness to palpation. Palm is soft. No sensory deficits. Her left long finger and left ring finger show no residual triggering. Neuro - CN II-XII grossly intact. Psych - Normal mood and affect. ASSESSMENT 1. Right long trigger finger. 2. Family history of skin cancer. 3. Former smoker. PLAN Recommend incision tendon sheath A1 alma to release triggering of right long finger. Surgery can be done on an outpatient basis under tourniquet control with Caro Block anesthesia. Postoperatively, a bulky dressing will be placed in the palm. Will encourage range of motion exercises to minimize stiffness. Patient was informed of the risks and complications of the procedure including alternatives to surgery. These were discussed with the patient personally. Patient voices understanding and wishes to proceed. Some of the risks and complications were included in a form from the [employer] [employer]. Some of the risks and complications that were discussed included but were not inclusive of failure to diagnose including symptom relief, pain, infection, numbness, stiffness, loss of digit, RSD (CRPS), need for further surgery, contracture, and wound healing problems. We discussed the current risks associated with COVID-19. While it is understood that there is a community spread of COVID-19, the risk of bettina COVID-19 while at [facility] ([facility]) is very low; however, the risk cannot be completely mitigated because of the community spread of the disease. We discussed in detail the risk of exposure to and/or potential harm posed by the COVID-19 virus with having a surgery/procedure at this time versus the risk of delaying the surgery/procedure. It is not possible to know either the risk of delaying the surgery or procedure or chance of getting an infection with perfect accuracy, but a joint decision was made to proceed at this time with the scheduled surgery/procedure as indicated on the consent form. Patient was notified that we will need to comply with any screening or testing WC wishes to perform or that surgery may be delayed for any positive results. Procedure Criteria Procedure Type: Elective COVID Risk Discussion: The surgeon/proceduralist and patient have discussed in detail the risk of exposure to and/or potential harm posed by the COVID-19 virus with having a surgery/procedure at this time versus the risk of delaying the surgery/procedure. It is not possible to know either the risk of delaying the surgery or procedure or chance of getting an infection with perfect accuracy, but a joint decision was made between the patient and the surgeon/proceduralist to proceed at this time with the scheduled surgery/procedure as indicated on the consent form.
[2021-10-15] MEDS: Cefazolin 2 GM in 0.9% Normal Saline 100 ML IV (14:26)
[2021-10-15] MEDS: Lidocaine 1%/Epi 1:200 (30ml) 30 ML AMPUL (15:00)
[2021-10-15] MEDS: Mupirocin Ointment 22gm Tube 1 APPLIC (15:10)
--- NOTE | 2021-10-15 15:22 | PCM.OPRPT ---
Problems Associated Problem List Diagnoses (1) Trigger finger, right middle finger: (2) Family history of skin cancer: (3) Former smoker: Report of Operation Date of Procedure: 10/15/21 Pre-Operative Diagnosis: 1. Right long trigger finger. 2. Family history of skin cancer. 3. Former smoker. Post-Operative Diagnosis: Same. Surgery/Procedure Performed:: Incision tendon sheath for trigger finger right long finger. Description of Surgical Findings:: 61 year old woman presents with worsening triggering in her right long finger. When her right long finger flexes into the palm, she has to use her other hand to straighten out the finger which is quite painful when it occurs. She has had steroid injections in the past. She is not interested in any more steroid injections. She did have triggering in the left hand involving the long and ring fingers. She underwent surgery in Jan, 2020 and her postoperative course was uneventful. Patient is right hand dominant. She presents at this time for further evaluation and treatment. She denies trauma. Patient was informed of the risks and complications of the procedure including alternatives to surgery. These were discussed with the patient personally. Patient voices understanding and wishes to proceed. Some of the risks and complications were included in a form from the [place] [employer]. Some of the risks and complications that were discussed included but were not inclusive of failure to diagnose including symptom relief, pain, infection, numbness, stiffness, loss of digit, RSD (CRPS), need for further surgery, contracture, and wound healing problems. Total tourniquet time - 33 minutes. Surgeon: Danilo Griffin corporate director talent assessment: None Type of Anesthesia: Block,[place] Specimen's removed: None. Drains: None. Estimated Blood Loss (mL): 2. Description of Procedure: Patient was taken to OR in supine position and [place] Block anesthesia was administered with the tourniquet inflated to 250 mmHg. The right upper extremity was prepped and draped in the usual fashion. SCD's were placed for DVT prophylaxis. Perioperative antibiotics were given intravenously. Oblique marking was made in the distal palmar crease area to the right long finger. Using xylocaine with epinephrine, the marking was infiltrated. After waiting 5 minutes for the anesthetic to take effect, an oblique incision was made in the distal palmar crease to the right long finger. Dissection was carried down to the tendon sheath A1 alma. A thickened alma was seen. Increased inflammation was seen. The dissection was done longitudinally to minimize injury to the digital nerves. Under direct vision and using a scalpel, an incision was made through the A1 alma up to the beginning of the A2 alma. The flexor tendons were able to glide very easily without clinical evidence of further tethering. The tourniquet was released after 33 minutes. Hemostasis was obtained with gentle pressure. The incisions were closed with 5-0 Nylon simple interrupted sutures and vertical mattress interrupted sutures. Antibiotic ointment was applied to the suture line followed by Xeroform gauze and 2x2 gauze followed by 2 inch Maria R wrap and an robyn wrap. Patient tolerated the procedure well and was sent to PACU in satisfactory condition. Patient will be sent home on antibiotics and pain medication. She will keep her right hand elevated during the initial postoperative period. Patient will followup in a week for a wound check and for discussion of the pathology report . The sutures will be removed in two weeks. She will be encouraged to do range of motion exercises to minimize stiffness. Grafts/Implants Used: None. Complications None. Admit VTE Documentation VTE Present on Admission: No VTE Mechan Device Prophylaxis: SCD's VTE Pharm Prophylaxis ordered?: No Addendum Addendum: Surgery Charges CPT - 38877 ICD-10 - M65.331, Z80.8, Z87.891
--- NOTE | 2021-10-15 16:08 | PCM.DC ---
Discharge Instructions Diet Discharge Diet: No restrictions Activity Discharge Activity: May Not Drive (while taking pain meds) and May Shower (wear plastic bag over right hand when showering.) May shower in (days): 1 (wear plastic bag over right hand when showering.) May resume sexual activity in: No Restrictions Lifting Restrictions: 20 lbs. Keep extremity elevated above heart level: Right Arm Dressing / Incision Call your doctor if your incision/area has: Continuous Slow Oozing, Sudden Increased Bleeding, Increased Pain/ Swelling, Increased Redness, Foul Smelling Discharge and Swelling at the incision site Call your doctor if you observe: Fever of 101 or Higher, Coldness, Increased Pain, Shortness of breath, Chest pain, Calf discomfort and Uncontrolled pain Suture Line Care: - (after operative dressing is removed in the office, apply antibiotic ointment to suture line daily.) Change Dressing in: 1 week (will remove operative dressing in the office.) Cleanse incision/area with: - (wear plastic bag over right hand when showering.) Follow Up Care Please Follow Up With: Danilo Griffin MD When: one week. Call [phone] for appointment. Test Results: Test results from this visit will be discussed in further detail at your follow-up appointment, if applicable. Discharge Plan Admission Primary Reason for Your Visit: trigger finger surgery right long finger Attending Provider: Danilo Griffin Primary Care Provider: Phyllis Lujan Discharge Orders/Prescriptions Prescriptions: New cefadroxil 500 mg capsule 500 mg PO BID Qty: 8 RF: 0 L.acidoph,saliva-B.bif-S.therm [Acidophilus Probiotic Blend] 175 mg capsule 1 cap PO DAILY Qty: 10 RF: 0 oxycodone-acetaminophen [Percocet] 5-325 mg tablet 1 tab PO Q6H PRN (Reason: pain (scale score 7-10)) 7 Days Qty: 28 RF: 0 Continued omeprazole 40 mg capsule,delayed release(DR/EC) 40 mg PO DAILY RF: 0 polyethylene glycol 3350 17 GM packet 17 g PO DAILY RF: 0 Referrals / Follow Up: Phyllis Lujan DO [Primary Care Provider] - Disposition Disposition (needs filled in before D/C Order can be placed): Home, Self Care
== END 2021-10-15 23:59 | disposition home or self-care (01) ==
LOC: SDC 12:38 → AC 12:39
PROVIDERS: PCP Family Medicine; Referring Provider Surgery; Visit Provider Surgery
PROC: (CPT 26055; principal; 2021-10-15 14:20)
DX: M65.331 Trigger finger, right middle finger (principal); Z87.891 Personal history of nicotine dependence; M10.9 Gout, unspecified; G56.03 Carpal tunnel syndrome, bilateral upper limbs; Z86.16 Personal history of COVID-19; K21.9 Gastro-esophageal reflux disease without esophagitis; Z80.8 Family history of malignant neoplasm of other organs or systems
CPT/HCPCS: 26055; 01810; J7120; A4216; J2405

== ENCOUNTER 2021-11-10 09:59 | Outpatient (CLI) | payer MEDICAID, SELFPAY ==
[2021-11-10 10:20] LABS: Absolute Lymphocyte Count 1.59 X10^3/uL (0.83-4.51); Absolute Neutrophil Count 2.6 X10^3/uL (2.0-7.7); Basophil# 0.02 X10^3/uL; Basophil% 0.4 % (0-1); Eosinophils% 2.1 % (0-5); Hematocrit 38.9 % (37-47); Hemoglobin 12.7 g/dL (12.0-15.0); Lymphocyte # 1.59 X10^3/ul (0.83-4.51); Mean Corp Hgb Conc 32.6 g/dL (32-36); Mean Corpuscular Hgb 28.9 pg (27.0-32.0); Mean Corpuscular Volume 88.4 fL (81-99); Mean Platelet Vol. 9.5 fl (6.2-12.0); Monocyte% 8.6 % (0-10); NRBC Flagged by Analyzer 0 % (0-5); Neutrophil # 2.55 X10^3/uL (2.7-7.7); Neutrophil % 54.7 % (47-70); Platelet Count 304 K/mm3 (150-450); RBC Distribution Width CV 13.3 % (11.6-14.6); RBC Distribution Width SD 43.7 fl (35.1-43.9); White Blood Count 4.7 K/mm3 (4.4-11.0)
[2021-11-10 11:06] LABS: ALB/GLOB Ratio 1.1 RATIO (0.9-2.4); AST(SGOT) 21 U/L (15-37); Alanine Aminotransfer ALT/SGPT 27 U/L (13-56); Albumin, Serum 3.9 g/dL (3.2-5.0); Alkaline Phosphatase 121 U/L (45-117); Anion Gap 6 (5-15); BUN 23 mg/dL (7-18); BUN/Creat Ratio 26.2 RATIO (10-20); Calcium,Total 9.6 mg/dL (8.5-10.1); Chloride 105 mmol/L (98-107); Creatinine, Serum 0.88 mg/dL (0.55-1.02); EST Glomerular Filtration Rate 69 mL/min (>60); Est Glom Filt Rate - Afr Amer 84 mL/min (>60); Globulin 3.4 g/dL (2.2-4.2); Glucose 92 mg/dL (74-106); Potassium 4.4 mmol/L (3.5-5.1); Protein, Total 7.3 g/dL (6.4-8.2); Sodium Level 138 mmol/L (136-145)
== END 2021-11-10 23:59 | disposition home or self-care (01) ==
LOC: LAB 10:00
PROVIDERS: PCP Family Medicine; Referring Provider Family Medicine; Visit Provider Family Medicine
DX: D64.9 Anemia, unspecified (principal); Z51.81 Encounter for therapeutic drug level monitoring
CPT/HCPCS: 36415; 80053; 85025

== ENCOUNTER 2021-12-13 14:25 | Outpatient (CLI) | payer MEDICAID, SELFPAY ==
--- NOTE | 2021-12-13 14:28 | RAD_ITS ---
STUDY: XR Chest 2 Views 12/13/2021 2:32 PM REASON FOR EXAM: Female, 61 years old. CHEST PAIN COUGH COMPARISON: None TECHNIQUE: XR Chest 2 Views FINDINGS: There is no demonstrated pleural abnormality. Normal heart size. Normal mediastinum. Normal mart. Prominent appearing increased interstitial lung markings. Normal visualized pulmonary arteries. There is atherosclerotic calcification of the aortic arch with tortuosity. There are diffuse degenerative changes of the visualized thoracic spine. There is degenerative osteoarthritis of the bilateral shoulders. There is no demonstrated abnormality of the visualized soft tissue structures of the upper abdomen. RAD/Chest PA and Lateral IMPRESSION: There are no acute findings. Electronically Signed: Hung Zelaya MD at 16:48 EDT ,
== END 2021-12-13 23:59 | disposition home or self-care (01) ==
LOC: MTRAD 14:26
PROVIDERS: PCP Family Medicine; Referring Provider Family Medicine; Visit Provider Family Medicine
DX: R05.9 Cough, unspecified (principal)
CPT/HCPCS: 71046

== ENCOUNTER → 2022-01-06 | Outpatient (CLI) | payer MEDICAID, SELFPAY ==
--- NOTE | 2022-01-07 07:57 | PFT ---
INTRODUCTION: The patient is a 61-year-old female that presents for pulmonary function studies secondary to a diagnosis of cough. Respiratory therapy reported good patient effort. Bronchodilators were used during testing. INTERPRETATION: Forced expiration spirometry demonstrates no evidence of a large airways obstructive ventilatory defect. There was a partial, although technically, not significant response to aerosolized bronchodilators. Spirograms are of good quality and plateau normally. Body plethysmography was performed and reveals lung volumes to be within normal limits. Diffusing capacity by single breath CO is also within normal limits. IMPRESSION: Subtle stigmata of small airways disease with partial (although technically nonsignificant) response to bronchodilators.
== END | disposition home or self-care (01) ==
LOC: PSN 10:28
PROVIDERS: PCP Family Medicine; Referring Provider Family Medicine; Visit Provider Family Medicine
DX: R05.9 Cough, unspecified (principal); R06.00 Dyspnea, unspecified
CPT/HCPCS: 94060; 94726; 94729

== ENCOUNTER 2022-08-12 09:37 | Day surgery (SDC) | payer MEDICAID, SELFPAY ==
[2022-08-12] VITALS (8 sets, daily range): BP systolic 115–166; BP diastolic 39–70; PULSE 59–73; RESP 16; TEMP 36.7–37; O2SAT 94–100; BMI 31.4
--- NOTE | 2022-08-12 09:39 | PCM.HP.BLA ---
History and Physical Date of Admission: 08/12/22 HISTORY OF PRESENT ILLNESS 61 year old woman presents with worsening triggering in her right thumb. ? When her right thumb flexes into the palm, she has to use her other hand to straighten out the thumb which is quite painful when it occurs.?? She has had surgery for triggering of her left long finger, left ring finger, right long finger, and right ring finger in the past, the most recent involving her right long finger on 10/15/21. ? Patient is right hand dominant.? She has had steroid injections in the past.? ?She is not interested in any more steroid injections.? She presents at this time for further evaluation and treatment.? She denies trauma. PAST MEDICAL HISTORY ABLA (acute blood loss anemia) Arthritis Back pain Carpal tunnel syndrome, bilateral Easy bruising Gastric reflux Gout History of COVID-19 History of GI bleed Hypothyroid Leg cramps Osteoarthritis Trigger finger of right thumb Trigger finger, left middle finger Trigger finger, left ring finger Trigger finger, right middle finger Trigger finger, right ring finger Vitamin deficiency Wears glasses PAST SURGICAL HISTORY back surgery gastric bypass hysterectomy carpal tunnel surgery colonoscopy Status post trigger finger release ALLERGIES celecoxib [From Celebrex] ibuprofen aspirin naproxen [From Aleve] MEDICATIONS polyethylene glycol ascorbic acid (vitamin C) (Vitamin C) mecobalamin (vitamin B12) multivitamin with minerals-iron fumarate oral liquid (Multi Vitamin) omega 2-drr-mlm-fish oil capsule (Fish Oil) FAMILY HISTORY Mother - Rheumatoid arthritis, Hypertension, Melanoma, Skin cancer, Thyroid disorder Father - Diabetes, Cancer, Arthritis, Heart disease Brother - Heart disease, High cholesterol Daughter - Thyroid disorder SOCIAL HISTORY Smoking Status:? Former smoker alcohol intake:? never substance use type:? does not use REVIEW OF SYSTEMS General - Denies fever, fatigue, and weight loss. Eyes - Denies cataracts and glaucoma. ENT - Denies nasal congestion and sore throat. Endocrine - Denies excessive thirst and urination. Has thyroid disease. Skin - Denies suspicious lesions and skin cancer. Musculoskeletal - Has joint pain, joint stiffness, weakness of muscles and joints, and arthritis.? Denies back pain.? Has triggering right thumb. Had left long trigger finger, left ring trigger finger. right long trigger finger, and right ring trigger finger releases in the past.? Had bilateral carpal tunnel surgery. Neuro - Denies headaches. Cardiovascular - Denies chest pain, fatigue, and shortness of breath with exertion. Psych - Denies anxiety and depression. Respiratory - Denies chronic cough and shortness of breath. Gastrointestinal - Denies nausea, vomiting, diarrhea, and constipation. Hematologic - Denies abnormal bruising and bleeding. Genitourinary - Denies hematuria and urinary frequency. PHYSICAL EXAMINATION General - Alert and Oriented. HEENT - PERRL. EOMI.? Throat is clear. Neck - Supple and nontender.? No cervical adenopathy. Lungs - Clear to auscultation. Heart - Regular rate and rhythm. Abdomen - Soft and nondistended. Extremities - FROM. No axillary adenopathy.? Radial pulses are palpable.? Fingers are warm with good capillary refill.? Minimal swelling seen.? When she tries to make a fist, the pain in the right thumb increases.? She cannot straighten out the thumb on her own.? She has to use her other hand to straighten out the finger.? No audible clicking noted today.? There is thickening in the area of the A1 alma at the base of the thumb overlying the MP joint with some tenderness to palpation.? Palm is soft.? No sensory deficits.? Her left long finger,? left ring finger, right long finger, and right ring finger show no residual triggering. Neuro - CN II-XII grossly intact. Psych - Normal mood and affect. ASSESSMENT 1.? Trigger finger right thumb. 2.? Family history of skin cancer. 3.? Former smoker. PLAN Recommend incision tendon sheath A1 alma to release triggering of her right thumb. Surgery can be done on an outpatient basis under tourniquet control with Bucky Block anesthesia. Postoperatively, a bulky dressing will be placed in the palm.? Will encourage range of motion exercises to minimize stiffness. Patient was informed of the risks and complications of the procedure including alternatives to surgery.? These were discussed with the patient personally.? Patient voices understanding and wishes to proceed. Some of the risks and complications were included in a form from the [place]. Some of the risks and complications that were discussed included but were not inclusive of failure to diagnose including symptom relief, pain, infection, numbness, stiffness, loss of digit, RSD (CRPS), need for further surgery, contracture, and wound healing problems. Assessment & Plan Assessment/Plan (1) Trigger finger of right thumb: (2) Family history of skin cancer: (3) Former smoker:
[2022-08-12] MEDS: Lactated Ringers 1,000 ML 15 ML IV (10:14)
[2022-08-12] MEDS: Cefazolin 2 GM in 0.9% Normal Saline 100 ML IV (10:55)
[2022-08-12] MEDS: Mupirocin Ointment 22gm Tube 1 APPLIC (11:41)
--- NOTE | 2022-08-12 12:11 | OP.PCM_ITS ---
Problems Associated Problem List Diagnoses (1) Trigger thumb of right hand: (2) Family history of skin cancer: (3) Former smoker: Report of Operation Date of Procedure: 08/12/22 Pre-Operative Diagnosis: 1. Right trigger thumb. 2. Family history of skin cancer. 3. Former smoker. Post-Operative Diagnosis: Same. Surgery/Procedure Performed:: Incision tendon sheath right trigger thumb for stenosing tenosynovitis. Description of Surgical Findings:: 61 year old woman presents with worsening triggering in her right thumb. ? When her right thumb flexes into the palm, she has to use her other hand to straighten out the thumb which is quite painful when it occurs.?? She has had surgery for triggering of her left long finger, left ring finger, right long finger, and right ring finger in the past, the most recent involving her right long finger on 10/15/21. ? Patient is right hand dominant.? She has had steroid injections in the past.? ?She is not interested in any more steroid injections.? She presents at this time for further evaluation and treatment.? She denies trauma. Patient was informed of the risks and complications of the procedure including alternatives to surgery. These were discussed with the patient personally. Patient voices understanding and wishes to proceed. Some of the risks and complications were included in a form from the [place] [employer]. Some of the risks and complications that were discussed included but were not inclusive of failure to diagnose including symptom relief, pain, infection, numbness, stiffness, loss of digit, RSD (CRPS), need for further surgery, contracture, and wound healing problems. Total tourniquet time - 48 minutes. Surgeon: Danilo Griffin MD visual arts teacher: None Type of Anesthesia: Block,[place] Anesthesiologist: Sabino Cannon MD Specimen's removed: None. Drains: None. Estimated Blood Loss (mL): 1. Description of Procedure: The patient was taken to the operating room in a supine position.? She was given IV sedation and her right upper extremity had a Bucky block placed.? The tourniquet was elevated to 250 mmHg. SCDs were placed for DVT prophylaxis.? There was an issue with the IV on the left arm, and it had to be replaced. Perioperative antibiotics were given intravenously.?The right hand was prepped and draped in the usual fashion. Under loupe magnification, I infiltrated her MP joint crease on the volar base of her right thumb.? I then made a horizontal incision in his MP joint crease carefully down into the subcutaneous tissue.? Sometimes the radial digital nerve is quite close to this crease and care mostly taken to minimize injury to the radial digital nerve. I dissected down to the tendon sheath.? The A1 alma was quite dense and thickened.?? I made a longitudinal incision to incise the tendon sheath at the A1 alma After the A1 alma was incised, care was taken to not damage the oblique alma in the thumb.? After I opened up the tendon sheath, I extended and flexed the thumb and there was easy gliding of the thumb in both directions with no evidence of further triggering or locking of the tendon.? The tendon sheath was quite thickened indicative of a chronic inflammatory process.? ? I then dissected out the ulnar digital nerve, which was intact.? Also, I dissected out the radial digital nerve which was intact.? I irrigated the wound with saline.? I then closed the wound with 5-0 Monocryl interrupted sutures for the deep dermis and subcutaneous tissue. The skin was approximated using 5-0 nylon vertical mattress and simple interrupted sutures.? The incision was then dressed with Bactroban ointment, Xeroform gauze, 2 x 2 gauze and a 2-inch Maria R wrap.? The tourniquet was released after 48 minutes.? The patient tolerated the proce dure well and was sent to the recovery room in satisfactory condition.? She will be sent home on antibiotics and pain medication.? ? She will followup in the office in one week. She will place a plastic bag over her right hand when showering. We will have the sutures removed in a couple of weeks.? She will be encouraged to proceed with range of motion exercises of her right thumb to minimize stiffness. She will keep her right hand elevated when sitting. Grafts/Implants Used: None. Procedure Start Time: 11:26 Procedure Stop Time: 12:01 Complications None. Admit VTE Documentation VTE Present on Admission: No VTE Mechan Device Prophylaxis: SCD's VTE Pharm Prophylaxis ordered?: No Addendum Addendum: Surgery Charges CPT - 16934 ICD-10 - M65.311, Z80.8, Z87.891
--- NOTE | 2022-08-12 12:30 | DCINST_ITS ---
Discharge Instructions Diet Discharge Diet: No restrictions Activity Discharge Activity: May Not Drive (while taking narcotic pain medication.), May Shower (wear plastic bag over right hand when showering.) and - (no heavy lifting right hand.) May shower in (days): 1 (wear plastic bag over right hand when showering.) May resume sexual activity in: No Restrictions Weight Bearing Status: Weight bearing as tolerated Lifting Restrictions: 20 lb lifting restriction right hand. Keep extremity elevated above heart level: Right Arm Additional Activity Instructions:: encourage range of motion exercises to minimize stiffness. Dressing / Incision Call your doctor if your incision/area has: Continuous Slow Oozing, Sudden Increased Bleeding, Increased Pain/ Swelling, Increased Redness, Foul Smelling Discharge and Swelling at the incision site Call your doctor if you observe: Fever of 101 or Higher, Coldness, Increased Pain, Shortness of breath, Chest pain, Calf discomfort and Uncontrolled pain Suture Line Care: - (apply antibiotic ointment to suture line daily after the operative dressing removed in the office.) Remove Dressing in: leave in place till F/U (followup office one week.) Cleanse incision/area with: Keep Dressing Clean & Dry (wear plastic bag over right hand when showering.) Follow Up Care Please Follow Up With: Danilo Griffin MD When: one week. call [phone] for appt. Test Results: Test results from this visit will be discussed in further detail at your follow- up appointment, if applicable. Discharge Plan Admission Primary Reason for Your Visit: surgery right trigger thumb. Attending Provider: Danilo Griffin Primary Care Provider: Phyllis Lujan Consulting Providers: Nikolas Escobedo Discharge Orders/Prescriptions Prescriptions: New cefadroxil 500 mg capsule 500 mg PO BID Qty: 8 0RF L.acidoph,saliva-B.bif-S.therm [Acidophilus Probiotic Blend] 175 mg capsule 1 cap PO DAILY Qty: 10 0RF oxycodone-acetaminophen [Percocet] 5-325 mg tablet 1 tab PO Q6H PRN (Reason: pain (scale score 7-10)) 7 Days Qty: 28 0RF Rx Instructions: 28 tabs (twenty-eight) Continued ascorbic acid (vitamin C) [Vitamin C] 500 mg tablet 500 mg PO DAILY omega 3-piz-sxx-fish oil [Fish Oil] 1,200 (144-216) mg capsule 2 cap PO DAILY Multi Vitamin 9 mg iron/15 mL liquid 15 ml PO DAILY mecobalamin (vitamin B12) 1,000 mcg tablet,disintegrating 1,000 mcg sublingual DAILY Rx Instructions: place tablet under tongue and allow to dissolve for at least30 secs before swallowing polyethylene glycol 3350 17 GM packet 17 g PO DAILY turmeric root-jonathon root ext 150-25 mg Tablet,Chewable 2 tab PO DAILY Referrals / Follow Up: Danilo Griffin MD [Med Staff - Active Staff] - (followup one week.) Phyllis Lujan DO [Primary Care Provider] - Disposition Disposition (needs filled in before D/C Order can be placed): Home, Self Care
== END 2022-08-12 14:18 | disposition home or self-care (01) ==
LOC: SDC 09:37 → AC 09:49
PROVIDERS: PCP Family Medicine; Visit Provider Surgery
PROC: (CPT 26055; principal; 2022-08-12 11:20)
DX: M65.311 Trigger thumb, right thumb (principal); E03.9 Hypothyroidism, unspecified; Z87.891 Personal history of nicotine dependence; Z86.16 Personal history of COVID-19; Z98.84 Bariatric surgery status
CPT/HCPCS: 26055; 01810; J7120; J2405

== ENCOUNTER 2022-09-22 21:50 | Emergency (ER) | payer MEDICAID, SELFPAY ==
[2022-09-22 21:52] VITALS: BP 176/84; PULSE 83; RESP 18; TEMP 36.6; O2SAT 98; BMI 31.1
--- NOTE | 2022-09-22 22:32 | RAD_ITS ---
EXAM: XR LEFT HIP WITH PELVIS WHEN PERFORMED, 2 OR 3 VIEWS CLINICAL INDICATION: pain TECHNIQUE: Two or three views of the left hip with pelvis when performed. This report was created using [employer] report generation technology. COMPARISON: Previous hip radiographs of 04/15/2019. FINDINGS: BONES/JOINTS: Unremarkable. No displaced fracture. No destructive or sclerotic lesions. Note that overlapping bowel shadows may however obscure fine detail. Sacroiliac joints are unremarkable. No widening of the pubic symphysis. The articular structures are unremarkable; the hip joint spaces are preserved. SOFT TISSUES: An ovoid amorphous soft tissue calcification overlies the greater trochanter of the proximal right femur, larger than on the prior study, indicating calcific tendinitis/bursitis. OTHER: Degenerative disc space narrowing noted at the L4/5 level. RAD/HIP, UNI W/ Pelvis 2-3 Views IMPRESSION: No fracture or dislocation. Calcific tendinitis/bursitis of the right hip. L4/5 degenerative disc space narrowing. Electronically Signed: Hari Tripp MD at 23:54 EST ,
--- NOTE | 2022-09-22 22:35 | US_ITS ---
EXAM: US DUPLEX LEFT LOWER EXTREMITY VEINS CLINICAL INDICATION: LT HIP PAIN TECHNIQUE: Real-time duplex ultrasound scan of the left lower extremity veins integrating B-mode two-dimensional vascular structure, Doppler spectral analysis, color flow Doppler imaging and compression. This report was created using [employer] report Rangespan technology. COMPARISON: None. FINDINGS: DEEP VEINS: Unremarkable. No DVT in the visualized common femoral, femoral, popliteal or visualized calf veins. The veins demonstrate normal color flow, are normally compressible, with normal phasic flow and/or augmentation response. Right common femoral vein is also patent. SUPERFICIAL VEINS: Unremarkable. No thrombus in the visualized great saphenous vein. SOFT TISSUES: No acute findings. No popliteal cyst. US/Venous Duplex Imag/Limited/Uni IMPRESSION: Negative for DVT. Electronically Signed: Hari Tripp MD at 23:56 EST ,
[2022-09-22] MEDS: Ondansetron ODT 4 MG Tablet PO (22:52)
[2022-09-22] MEDS: Morphine 4 MG/ML Syringe 6 MG IM (22:52)
[2022-09-22] MEDS: diazePAM 5 MG Tablet PO (22:52)
--- NOTE | 2022-09-23 00:11 | EDS_ITS ---
HPI History of Present Illness Chief Complaint: Lower Extremity Injury Narrative Narrative: Patient is a 61-year-old female with past medical history of degenerative disc disease with herniated disc requiring surgery to the L4-L5 spine roughly 3 years ago. She also has a past medical history arthritis as well as smoking. She states that she has noted some pain to the left upper hip region over the last few days with no direct trauma or excessive activity. She states that today how ever the pain became more intense and she has had difficulty ambulating and secondary to this she comes in for evaluation. She denies any numbness tingling or weakness. She denies any history of DVT or PE. She does report that the pain seems to increase with motion at the hip and will radiate down towards her ankle/foot. [facility] Medical History ABLA (acute blood loss anemia) Acute anemia Arthritis Back pain Back problem Carpal tunnel syndrome, bilateral Easy bruising Gastric reflux Gout History of COVID-19 History of GI bleed Hypothyroid Leg cramps Osteoarthritis Trigger finger, left middle finger Trigger finger, left ring finger Trigger finger, right middle finger Trigger finger, right ring finger Trigger thumb of right hand Vitamin deficiency Wears glasses Home Medications polyethylene glycol 3350 17 gram oral powder packet 17 g PO DAILY constipation 06/23/16 [History Last Taken Unknown] ascorbic acid (vitamin C) 500 mg tablet (Vitamin C) 500 mg PO DAILY 08/03/22 [History Last Taken Unknown] mecobalamin (vitamin B12) 1,000 mcg disintegrating tablet,sublingual 1,000 mcg sublingual DAILY 08/03/22 [History Last Taken Unknown] multivitamin with minerals-iron fumarate 9 mg iron/15 mL oral liquid (Multi Vitamin) 15 ml PO DAILY 08/03/22 [History Last Taken Unknown] omega 5-fvv-cqh-fish oil 1,200 mg (144 mg-216 mg) capsule (Fish Oil) 2 cap PO DAILY 08/03/22 [History Last Taken Unknown] turmeric root extract 150 mg-jonathon root extract 25 mg chewable tablet 2 tab PO DAILY 08/11/22 [History Last Taken Unknown] L.acidophil,salivari-Bifido bifidum-Strep thermoph 175 mg capsule (Acidophilus Probiotic Blend) 1 cap PO DAILY #10 caps 08/12/22 [Rx Last Taken Unknown] cefadroxil 500 mg capsule 500 mg PO BID #8 caps 08/12/22 [Rx Last Taken Unknown] oxycodone-acetaminophen 5 mg-325 mg tablet (Percocet) 1 tab PO Q6H PRN pain (scale score 7-10) 7 days #28 tabs 08/12/22 [Rx Last Taken Unknown] diazepam 5 mg tablet (Valium) 5 mg PO TID PRN muscle spasm 5 days #15 tabs 09/23/22 [Rx Last Taken Unknown] morphine 15 mg tablet,extended release (MS Contin) 15 mg PO BID PRN PRN pain 5 days #10 tabs 09/23/22 [Rx Last Taken Unknown] Allergy/AdvReac Type Severity Reaction Status Date / Time celecoxib [From Celebrex] Allergy dizziness Verified 09/22/22 21:54 ibuprofen Allergy HARD TIME Verified 09/22/22 21:54 BREATHING aspirin AdvReac HX OF GI Verified 09/22/22 21:54 BLEED naproxen [From Aleve] AdvReac HX OF GI Verified 09/22/22 21:54 BLEED Family History Mother Rheumatoid arthritis Hypertension Melanoma Skin cancer Thyroid disorder Father Diabetes Cancer Arthritis Heart disease Brother Heart disease High cholesterol Daughter Thyroid disorder Surgical History h/o back surgery H/O gastric bypass H/O: hysterectomy History of carpal tunnel surgery Hx of colonoscopy Status post trigger finger release Social History Smoking Status: Never smoker alcohol intake: never substance use type: does not use additional social history: DOES NOT TAKE ASPIRIN DOES NOT TAKE IBUPROFEN ROS ROS ED Constitutional Constitutional ED: Denies chills or fever(s) ENT ENT ED: Denies sore throat Cardiovascular Cardiovascular: Denies chest pain Respiratory/Chest Respiratory/Chest: Denies cough or dyspnea Gastrointestinal Gastrointestinal: Denies abdominal pain, diarrhea, nausea or vomiting Genitourinary Genitourinary ED: Denies dysuria Musculoskeletal Musculoskeletal: Reports other Details: Positive left hip pain ; Denies back pain Integumentary Denies Abrasions or rash Neurologic Neurologic: Denies headache(s), paresthesias or weakness Hematologic/Lymphatic Hematologic/Lymphatic: Denies easy bleeding or easy bruising EXAM Physical Exam Const Vital Signs: 09/22/22 21:52 09/23/22 00:24 Temperature 97.9 F Temperature Source Temporal Pulse Rate 83 70 Respiratory Rate 18 16 Blood Pressure 176/84 H 140/75 H Blood Pressure Mean 114 Pulse Ox 98 95 Oxygen Delivery Method Room Air Positive well nourished and well developed General Appearance ED: well developed Eyes PERRL and EOMs intact bilaterally Neck supple Resp normal respiratory effort and clear to auscultation bilaterally Cardio regular rate and regular rhythm GI normal to inspection, nondistended, normoactive bowel sounds, non-tender, non- distended and no masses Auscultation: normoactive bowel sounds Palpation: soft Back/Spine Back/Spine Narrative: No bony deformity or step-off of the thoracic or lumbar spine no midline pain to palpation. No saddle anesthesia. Negative straight leg raise. No clonus or Babinski. Patellar reflexes are plus 2 out of 4 bilaterally. There is pain on palpation of top the left piriformis muscle belly that reproduces the pain patient's been experiencing and she has a positive Karla sign on left as well. Extremity Extremity Narrative: No asymmetric edema no pitting edema negative Homans' sign bilaterally. Left lower extremity is neurovascular intact. There is pain with passive and active flexion at the hip. Remainder of the exam is normal Neuro oriented x3 and CN's II-XII intact bilaterally Sensorium / Orientation: alert Psych mental status grossly normal Skin no rashes or lesions noted MDM MDM MDM Narrative Medical decision making narrative: Patient presented to the ER hypertensive but is in pain so this is to be expected. She has no report or signs of trauma by exam as well as no signs of infection and the pain is worse with active range of motion indicating this is most likely musculoskeletal in nature. She has no signs of active nerve impingement by exam or neuro claudication. She did have recent surgery on her right hand but this was same-day surgery and risk factor for DVT is low but with the new onset pain without trauma I did elect to perform a venous duplex which was negative. Also patient does not report any recent trauma but there is conc erned that she could have a joint effusion or pathologic fracture causing symptoms so elected to perform a hip x-ray which also showed no obvious trauma or acute finding. At this time her symptoms are consistent with left piriformis syndrome as she has pain radiating down the left leg and the sciatic nerve region that is reproducible with palpation over top piriformis muscle and positive Karla sign. She was given symptomatic medications in the ER and did have improvement of pain. Therefore this time with negative work-up and improvement of symptoms she can be given symptomatic medications and discharged home Radiography Diagnostic Testing: Clinical Impression(s) from Imaging Studies Hip/Pelvis X-Ray 09/22/22 22:32 IMPRESSION: No fracture or dislocation. Calcific tendinitis/bursitis of the right hip. L4/5 degenerative disc space narrowing. Electronically Signed: Hari Tripp MD at 23:54 EST , Venous Duplex 09/22/22 22:35 IMPRESSION: Negative for DVT. Electronically Signed: Hari Tripp MD at 23:56 EST , X-ray of the left hip with 1 view pelvis as interpreted by the emergency medicine physician shows some calcific tendinitis of the right hip without acute fracture dislocation or joint effusion Discharge Plan Triage Chief Complaint: Lower Extremity Injury ED Provider: Sriram Hernandez Dx/Rx/DC Orders Clinical Impression: Piriformis syndrome of left side, Hypothyroidism, History of GI bleed Instructions: Back Exercises: Hip Rotator Stretch, Hip Rotation (Flexibility) Prescriptions: New morphine [MS Contin] 15 mg tablet extended release 15 mg PO BID PRN PRN (Reason: pain) 5 Days Qty: 10 0RF diazepam [Valium] 5 mg tablet 5 mg PO TID PRN (Reason: muscle spasm) 5 Days Qty: 15 0RF No Action ascorbic acid (vitamin C) [Vitamin C] 500 mg tablet 500 mg PO DAILY omega 0-qdz-vqm-fish oil [Fish Oil] 1,200 (144-216) mg capsule 2 cap PO DAILY Multi Vitamin 9 mg iron/15 mL liquid 15 ml PO DAILY mecobalamin (vitamin B12) 1,000 mcg tablet,disintegrating 1,000 mcg sublingual DAILY Rx Instructions: place tablet under tongue and allow to dissolve for at least30 secs before swallowing polyethylene glycol 3350 17 GM packet 17 g PO DAILY turmeric root-jonathon root ext 150-25 mg Tablet,Chewable 2 tab PO DAILY cefadroxil 500 mg capsule 500 mg PO BID Qty: 8 0RF L.acidoph,saliva-B.bif-S.therm [Acidophilus Probiotic Blend] 175 mg capsule 1 cap PO DAILY Qty: 10 0RF oxycodone-acetaminophen [Percocet] 5-325 mg tablet 1 tab PO Q6H PRN (Reason: pain (scale score 7-10)) 7 Days Qty: 28 0RF Rx Instructions: 28 tabs (twenty-eight) Primary Care Provider: Phyllis Lujan Referrals: Phyllis Lujan DO [Primary Care Provider] - Activity Restrictions/Additional Instructions: Please take the medication as directed to help control your symptoms and you may add Tylenol throughout the day if needed. Please do stretches that target the piriformis muscle as I feel this is the main cause of your symptoms and return to the ER should you have any further concerns Disposition Disposition: Home, Self Care Discharge Date/Time: 09/23/22 00:33
[2022-09-23 00:24] VITALS: BP 140/75; PULSE 70; RESP 16; O2SAT 95
== END 2022-09-23 00:33 | disposition home or self-care (01) ==
PROVIDERS: Emergency Provider Emergency Medicine; PCP Family Medicine; Visit Provider Emergency Medicine
DX: M25.552 Pain in left hip (principal); E03.9 Hypothyroidism, unspecified; G57.02 Lesion of sciatic nerve, left lower limb
CPT/HCPCS: 73502; 93971; 96372; 99282

== ENCOUNTER → 2022-10-18 | Outpatient (CLI) | payer MEDICAID, SELFPAY ==
--- NOTE | 2022-10-18 09:43 | BI_ITS ---
MAMMOGRAPHY - BILATERAL SCREENING REASON FOR EXAM: Female, 62 years old. Routine annual screening examination. PERTINENT HISTORY: Non-contributory. TECHNIQUE: Digital bilateral breast farrukh (3D mammographic acquisition) in the CC and MLO projections. 2-D mediolateral oblique (MLO) and craniocaudad (CC) views of both breasts were obtained. CAD: Full Field Digital Mammography with Computer Added Detection was performed. COMPARISON: Comparison is made with prior study dated 10/14/2021 and 10/13/2020. FINDINGS: Breast Composition: The breasts are almost entirely fatty. There are no dominant masses or suspicious calcifications. No other significant abnormalities are identified. There has been no significant change since the prior study. BI/SCRN MAMM (CAD)W/FARRUKH BILAT IMPRESSION: Stable bilateral screening mammogram. Yearly follow-up mammogram recommended. (A) ASSESSMENT CATEGORY: BIRADS Category 1: Negative. A letter regarding these results will be sent to the patient by the facility within 30 days. Approximately 10% of breast cancers are not detected by mammography. A normal mammogram should not delay biopsy of a clinically suspicious abnormality. [id number] Electronically Signed: Ludwin Miranda MD at 11:12 EST ,
--- NOTE | 2022-10-18 09:51 | BD_ITS ---
STUDY: DUAL ENERGY X-RAY ABSORPTIOMETRY / DXA REASON FOR EXAM: Female, 62 years old. [id number] TECHNIQUE: Bone Mineral Density (BMD) measurements of lumbar spine and bilateral hips were obtained. COMPARISON: Comparison is made with prior study dated 10/13/2020. FINDINGS: Lumbar Spine (L1-L4): g/cm2 (0.859) / T-score (-1.7) / Z-score (0.0) Findings are suggestive of osteopenia with a moderate fracture risk. Left Femur Total: g/cm2 (0.731) / T-score (-1.7) / Z-score (-0.6) Left Femoral Neck: g/cm2 (0.695) / T-score (-1.4) / Z-score (0.1) Right Femur Total: g/cm2 (0.746) / T-score (-1.6) / Z-score (-0.4) Right Femoral Neck: g/cm2 (0.671) / T-score (-1.6) / Z-score (-0.1) The T-Scores on the most recent prior examination were: Lumbar Spine (L1-L4): There has been improvement of bone density since the previous examination. Left Femur Total: which represents an improvement of 4.1%. Right Femur Total: which represents an improvement of 8.1%. BD/Dexa Bone Density Study IMPRESSION: The patient is considered osteopenic as outlined below according to World Rob Organization (WHO) criteria with a moderate fracture risk. There has been improvement of bone density since the previous examination. Reference Information: The T-score is the number of standard deviations above or below the standard which is normal for young adults at their peak bone mineral density. The World Health Organization (WHO) interprets the T-scores as follows: Above -1 Normal bone density Between -1 and -2.5 Osteopenia Equal to / or below -2.5 Osteoporosis As a practical clinical guideline, osteopenia may be graded as follows: Mild -1 through -1.5 Moderate -1.6 through -2.0 Severe -2.1 through -2.4 The Z-score is the number of standard deviations above or below age-matched controls. A Z-score of less than -1.5 would be considered abnormal. References: 1. NIH Osteoporosis and Related Bone Diseases www osteo.org 2. International Society for Clinical Densitometry www iscd.org 3. National Osteoporosis Foundation www nof.org Electronically Signed: Ludwin Miranda MD at 12:29 EST ,
== END | disposition home or self-care (01) ==
LOC: OPBD 09:40
PROVIDERS: PCP Family Medicine; Visit Provider Family Medicine
DX: Z12.31 Encounter for screening mammogram for malignant neoplasm of breast (principal); Z78.0 Asymptomatic menopausal state
CPT/HCPCS: 77063; 77067; 77080

== ENCOUNTER → 2022-10-21 | Outpatient (CLI) | payer MEDICAID, SELFPAY ==
--- NOTE | 2022-10-21 08:44 | RAD_ITS ---
STUDY: XR Chest 2 Views 10/21/2022 8:56 AM REASON FOR EXAM: Female, 62 years old. CHEST PAIN COUGH COMPARISON: None TECHNIQUE: XR Chest 2 Views FINDINGS: There is no demonstrated pleural abnormality. Normal heart size. Normal mediastinum. Normal mart. Prominent appearing increased interstitial lung markings. Normal visualized pulmonary arteries. There is atherosclerotic calcification of the aortic arch with tortuosity. There are diffuse degenerative changes of the visualized thoracic spine. There is degenerative osteoarthritis of the bilateral shoulders. There is no demonstrated abnormality of the visualized soft tissue structures of the upper abdomen. RAD/Chest PA and Lateral IMPRESSION: There are no acute findings. Electronically Signed: Hung Zelaya MD at 20:22 [facility] ,
[2022-10-21 10:19] LABS: Absolute Lymphocyte Count 1.29 X10^3/uL (0.83-4.51); Absolute Neutrophil Count 4.7 X10^3/uL (2.0-7.7); Basophil# 0.02 X10^3/uL; Basophil% 0.3 % (0-1); Eosinophil# 0.14 X10^3/uL; Eosinophils% 2.1 % (0-5); Hematocrit 43.1 % (37-47); Hemoglobin 13.8 g/dL (12.0-15.0); Lymphocyte # 1.29 X10^3/ul (0.83-4.51); Lymphocyte % 19.7 % (19-41); Mean Corpuscular Hgb 29.8 pg (27.0-32.0); Mean Corpuscular Volume 93.1 fL (81-99); Monocyte# 0.43 X10^3/uL; Monocyte% 6.6 % (0-10); NRBC Flagged by Analyzer 0 % (0-5); Neutrophil # 4.65 X10^3/uL (2.7-7.7); Neutrophil % 71.1 % (47-70); Platelet Count 245 K/mm3 (150-450); RBC Distribution Width CV 12.2 % (11.6-14.6); Red Blood Count 4.63 M/mm3 (4.2-5.4); White Blood Count 6.5 K/mm3 (4.4-11.0)
[2022-10-21 10:36] LABS: Vitamin B12 1527 pg/mL (211-911)
[2022-10-21 10:41] LABS: Hemoglobin A1c 5.4 % (3.8-5.6)
[2022-10-21 10:50] LABS: ALB/GLOB Ratio 1.1 RATIO (0.9-2.4); AST(SGOT) 21 U/L (15-37); Alanine Aminotransfer ALT/SGPT 33 U/L (13-56); Albumin, Serum 3.9 g/dL (3.2-5.0); Alkaline Phosphatase 111 U/L (45-117); Anion Gap 5 (5-15); BUN 18 mg/dL (7-18); BUN/Creat Ratio 18.5 RATIO (10-20); Calcium,Total 9.5 mg/dL (8.5-10.1); Chloride 104 mmol/L (98-107); Cholesterol 210 mg/dL (200); Creatinine, Serum 0.97 mg/dL (0.55-1.02); EST Glomerular Filtration Rate 61 mL/min (>60); Est Glom Filt Rate - Afr Amer 74 mL/min (>60); Ferritin 13 ng/mL (8-252); Globulin 3.5 g/dL (2.2-4.2); Glucose 89 mg/dL (74-106); High Density Lipoprotein 79 mg/dL; Potassium 4.3 mmol/L (3.5-5.1); Protein, Total 7.4 g/dL (6.4-8.2); Sodium Level 140 mmol/L (136-145); Thyroid Stim Hormone (TSH) 0.94 uIU/mL (0.358-3.74); Triglycerides 104 mg/dL; Very Low Density Lipoprotein 21 mg/dL (5-40)
== END | disposition home or self-care (01) ==
LOC: MTLAB 08:43
PROVIDERS: PCP Family Medicine; Referring Provider Family Medicine; Visit Provider Family Medicine
DX: Z00.00 Encounter for general adult medical examination without abnormal findings (principal); Z98.84 Bariatric surgery status; E04.2 Nontoxic multinodular goiter; R05.9 Cough, unspecified
CPT/HCPCS: 36415; 71046; 80053; 80061; 82607; 82728; 83036; 84443; 85025

== ENCOUNTER 2022-10-26 12:37 | Outpatient (RCR) | payer MEDICAID, SELFPAY | END 2022-11-01 23:59 | LOC: NS 12:37 | PROVIDERS: PCP Family Medicine; Visit Provider Family Medicine | DX: R63.5 Abnormal weight gain (principal); Z98.84 Bariatric surgery status | CPT/HCPCS: 97802 ==

== ENCOUNTER 2022-11-24 10:00 | Outpatient (RCR) | payer MEDICAID, SELFPAY | END 2022-12-02 23:59 | LOC: NS 10:00 | PROVIDERS: PCP Family Medicine; Visit Provider Family Medicine | DX: Z71.3 Dietary counseling and surveillance (principal); R63.5 Abnormal weight gain; Z98.84 Bariatric surgery status | CPT/HCPCS: 97803 ==

== ENCOUNTER → 2023-02-24 | Outpatient (CLI) | payer MEDICAID, SELFPAY ==
--- NOTE | 2023-02-24 11:58 | RAD_ITS ---
STUDY: X-RAY - RIGHT CLAVICLE REASON FOR EXAM: Female, 62 years old. PAIN AND SWELLING TECHNIQUE: 2 view(s) of the clavicle. COMPARISON: None available for comparison. FINDINGS: Normal clavicle. Normal acromioclavicular articulation. Normal visualized sternoclavicular articulation. Calcifications adjacent to the acromion process be due to artifacts. Calcification lateral to the humeral head consistent with calcific tendinitis. RAD/Clavicle IMPRESSION: 1. Calcific tendinitis of the right shoulder. 2. No demonstrated acute fracture. Electronically Signed: Kunal Felix MD at 10:41 EDT ,
[2023-02-24 16:26] LABS: Erythrocyte Sedimentation Rate 24 mm/hr (0-30)
[2023-02-24 16:34] LABS: CRP < 2.90 mg/L (0.0-3.0); Rheumatoid Factor < 10.0 IU/mL (<15); Thyroid Stim Hormone (TSH) 1.37 uIU/mL (0.358-3.74)
[2023-02-27 16:09] LABS: CCP IgG Antibodies 5 units (0-19)
== END | disposition home or self-care (01) ==
PROVIDERS: PCP Family Medicine; Referring Provider Family Medicine; Visit Provider Family Medicine
DX: M13.0 Polyarthritis, unspecified (principal); E04.2 Nontoxic multinodular goiter; M25.511 Pain in right shoulder
CPT/HCPCS: 36415; 73000; 84439; 84443; 85652; 86140; 86200; 86431

== ENCOUNTER → 2023-02-27 | Outpatient (CLI) | payer MEDICAID, SELFPAY ==
--- NOTE | 2023-02-27 16:16 | US_ITS ---
INDICATION: RECHECK RT MULTINODULAR GOITER EXAMINATION: Ultrasound US Thyroid (eg thyroid, parathyroid, parotid) TECHNIQUE: Amado scale and color doppler imaging was performed of the thyroid gland. TI-RADS criteria was utilized. COMPARISON: 02/26/2021 ultrasound. FINDINGS: RIGHT THYROID LOBE: 1.7 x 5.3 x 1.7 cm with a volume of 8.0 mL. Heterogeneous echotexture. Normal vascularity. 1.0 cm superior pole nodule which is solid, hypoechoic, wider than tall with smooth margins and no echogenic foci. 1.0 cm mid nodule which is solid, hypoechoic, wider than tall with smooth margins and no echogenic foci. 8 mm mid lobe nodule which is solid, hypoechoic, wider than tall margins and no echogenic foci. 4 mm inferior pole nodule which is solid, hyperechoic, more than tall with smooth margins and no echogenic foci. LEFT THYROID LOBE: 1.6 x 4.9 x 1.3 cm with a volume of 5.3 mL. Heterogeneous echotexture. Normal vascularity. 8mm superior pole predominantly cystic lesion which is wider than tall, nearly completely anechoic with smooth margins and no echogenic foci. 1.3 cm mid lobe nodule which is solid, wider than tall, hypoechoic with smooth margins and no echogenic foci. 6 mm inferior pole nodule which is mixed solid and cystic, predominantly anechoic, wider than tall with smooth margins and no echogenic foci. ISTHMUS: 2 mm in AP diameter. Homogeneous echotexture. Normal vascularity. No thyroid nodules. In the right anterior neck, corresponding to the palpable area of concern, is a lymph node measuring 1.2 x 0.5 cm which is not pathologic by size criteria. US/Thyroid IMPRESSION: Multiple bilateral thyroid nodules as described above without significant change as compared to the prior ultrasound. 1.0 cm right lobe and 1.3 cm left lobe nodules meet criteria for TI-RADS category 4 nodules with follow-up recommended in one year. Electronically Signed: Uri Serrato DO at 3:28 EDT ,
== END | disposition home or self-care (01) ==
LOC: US 16:15
PROVIDERS: PCP Family Medicine; Referring Provider Family Medicine; Visit Provider Family Medicine
DX: E04.2 Nontoxic multinodular goiter (principal)
CPT/HCPCS: 76536

== ENCOUNTER → 2023-02-28 | Outpatient (CLI) | payer MEDICAID, SELFPAY ==
[2023-02-28 15:00] LABS: CRP, High Sensitivity Cardiac 0.83 mg/L
== END | disposition home or self-care (01) ==
LOC: MTLAB 08:52
PROVIDERS: PCP Family Medicine; Referring Provider Family Medicine; Visit Provider Family Medicine
DX: R07.9 Chest pain, unspecified (principal)
CPT/HCPCS: 86140; 36415; 86141

== ENCOUNTER → 2023-10-31 | Outpatient (CLI) | payer MEDICARE, SELFPAY ==
[2023-10-31 15:30] LABS: Absolute Neutrophil Count 3.9 X10^3/uL (2.0-7.7); Basophil# 0.04 X10^3/uL; Basophil% 0.6 % (0-1); Eosinophil# 0.11 X10^3/uL; Eosinophils% 1.7 % (0-5); Hematocrit 41.8 % (37-47); Hemoglobin 13.4 g/dL (12.0-15.0); Mean Corp Hgb Conc 32.1 g/dL (32-36); Mean Corpuscular Hgb 30.2 pg (27.0-32.0); Mean Corpuscular Volume 94.1 fL (81-99); Mean Platelet Vol. 10.6 fl (6.2-12.0); Monocyte# 0.37 X10^3/uL; Monocyte% 5.7 % (0-10); NRBC Flagged by Analyzer 0 % (0-5); Neutrophil # 3.93 X10^3/uL (2.7-7.7); Neutrophil % 60.8 % (47-70); Platelet Count 280 K/mm3 (150-450); RBC Distribution Width CV 12.2 % (11.6-14.6); Red Blood Count 4.44 M/mm3 (4.2-5.4); White Blood Count 6.5 K/mm3 (4.4-11.0)
[2023-10-31 16:10] LABS: Vitamin B12 931 pg/mL (211-911)
[2023-10-31 16:14] LABS: Hemoglobin A1c 5.4 % (3.8-5.6)
[2023-10-31 16:36] LABS: ALB/GLOB Ratio 1.3 RATIO (0.9-2.4); AST(SGOT) 31 U/L (15-37); Alanine Aminotransfer ALT/SGPT 51 U/L (13-56); Albumin, Serum 4.1 g/dL (3.2-5.0); Alkaline Phosphatase 124 U/L (45-117); Anion Gap 9 (5-15); BUN 26 mg/dL (7-18); BUN/Creat Ratio 31.7 RATIO (10-20); Calcium,Total 9.5 mg/dL (8.5-10.1); Chloride 104 mmol/L (98-107); Cholesterol 205 mg/dL (200); Creatinine, Serum 0.82 mg/dL (0.55-1.02); EST Glomerular Filtration Rate 74 mL/min (>60); Est Glom Filt Rate - Afr Amer 90 mL/min (>60); Ferritin 10 ng/mL (8-252); Globulin 3.2 g/dL (2.2-4.2); Glucose 85 mg/dL (74-106); High Density Lipoprotein 79 mg/dL; Iron 110 ug/dL (50-170); Magnesium 2.1 mg/dL (1.6-2.6); Potassium 4.2 mmol/L (3.5-5.1); Protein, Total 7.3 g/dL (6.4-8.2); Sodium Level 136 mmol/L (136-145); T4 Free Direct 0.99 ng/dL (0.76-1.46); Thyroid Stim Hormone (TSH) 1.07 uIU/mL (0.358-3.74); Triglycerides 87 mg/dL; Uric Acid 4.1 mg/dL (2.6-6.0); Very Low Density Lipoprotein 17 mg/dL (5-40)
== END | disposition home or self-care (01) ==
PROVIDERS: PCP Family Medicine; Visit Provider Family Medicine
DX: R53.83 Other fatigue (principal); I10 Essential (primary) hypertension; E04.2 Nontoxic multinodular goiter; E61.1 Iron deficiency; M10.9 Gout, unspecified; M85.80 Other specified disorders of bone density and structure, unspecified site; R73.01 Impaired fasting glucose
CPT/HCPCS: 36415; 80053; 80061; 82306; 82607; 82728; 83036; 83540; 83735; 84439; 84443; 84550; 85025

== ENCOUNTER → 2023-11-22 | Outpatient (CLI) | payer MEDICARE, SELFPAY ==
--- NOTE | 2023-11-22 07:40 | BI_ITS ---
MAMMOGRAPHY - BILATERAL SCREENING REASON FOR EXAM: Female, 63 years old. Routine annual screening examination. PERTINENT HISTORY: Non-contributory. TECHNIQUE: Digital bilateral breast farrukh (3D mammographic acquisition) in the CC and MLO projections. 2-D mediolateral oblique (MLO) and craniocaudad (CC) views of both breasts were obtained. CAD: Full Field Digital Mammography with Computer Added Detection was performed. COMPARISON: Comparison is made with prior study dated October 18, 2022 and October 14, 2021. FINDINGS: Breast Composition: The breasts are almost entirely fatty. There are no dominant masses or suspicious calcifications. No other significant abnormalities are identified. There has been no significant change since the prior study. BI/SCRN MAMM (CAD)W/FARRUKH BILAT IMPRESSION: Stable bilateral screening mammogram. Yearly follow-up mammogram recommended. (A) ASSESSMENT CATEGORY: BIRADS Category 1: Negative. A letter regarding these results will be sent to the patient by the facility within 30 days. Approximately 10% of breast cancers are not detected by mammography. A normal mammogram should not delay biopsy of a clinically suspicious abnormality. [id number] Electronically Signed: Ludwin Miranda MD at 8:33 EDT ,
--- NOTE | 2023-11-22 08:00 | BD_ITS ---
STUDY: DUAL ENERGY X-RAY ABSORPTIOMETRY / DXA REASON FOR EXAM: Female, 63 years old. [id number] TECHNIQUE: Bone Mineral Density (BMD) measurements of lumbar spine and bilateral hips were obtained. COMPARISON: Comparison is made with prior study dated October 18, 2022. FINDINGS: Lumbar Spine (L1-L4): g/cm2 (0.857) / T-score (-1.7) / Z-score (0.0) Findings are suggestive of osteopenia with a moderate fracture risk. Left Femur Total: g/cm2 (0.655) / T-score (-2.3) / Z-score (-1.1) Left Femoral Neck: g/cm2 (0.6-0) / T-score (-2.1) / Z-score (-0.6) Right Femur Total: g/cm2 (0.674) / T-score (-2.2) / Z-score (-1.0) Right Femoral Neck: g/cm2 (0.651) / T-score (-1.8) / Z-score (-0.3) The T-Scores on the most recent prior examination were: Lumbar Spine (L1-L4): There has been worsening of bone density since the previous examination. Left Femur Total: which represents a worsening of 10.3%. Right Femur Total: which represents a worsening of 9.8%. BD/Dexa Bone Density Study IMPRESSION: The patient is considered osteopenic as outlined below according to World Rob Organization (WHO) criteria with a high fracture risk. There has been worsening of bone density since the previous examination. Reference Information: The T-score is the number of standard deviations above or below the standard which is normal for young adults at their peak bone mineral density. The World Health Organization (WHO) interprets the T-scores as follows: Above -1 Normal bone density Between -1 and -2.5 Osteopenia Equal to / or below -2.5 Osteoporosis As a practical clinical guideline, osteopenia may be graded as follows: Mild -1 through -1.5 Moderate -1.6 through -2.0 Severe -2.1 through -2.4 The Z-score is the number of standard deviations above or below age-matched controls. A Z-score of less than -1.5 would be considered abnormal. References: 1. NIH Osteoporosis and Related Bone Diseases www osteo.org 2. International Society for Clinical Densitometry www iscd.org 3. National Osteoporosis Foundation www nof.org Electronically Signed: Ludwin Miranda MD at 14:35 EDT ,
== END | disposition home or self-care (01) ==
PROVIDERS: PCP Family Medicine; Referring Provider Family Medicine; Visit Provider Family Medicine
DX: Z12.31 Encounter for screening mammogram for malignant neoplasm of breast (principal); M81.0 Age-related osteoporosis without current pathological fracture
CPT/HCPCS: 77063; 77067; 77080

== ENCOUNTER → 2024-11-19 | Outpatient (CLI) | payer MEDICARE, SELFPAY ==
[2024-11-19 12:04] LABS: Absolute Lymphocyte Count 1.52 X10^3/uL (0.83-4.51); Absolute Neutrophil Count 2.8 X10^3/uL (2.0-7.7); Basophil# 0.03 X10^3/uL; Basophil% 0.6 % (0-1); Eosinophil# 0.17 X10^3/uL; Eosinophils% 3.4 % (0-5); Hematocrit 40.8 % (37-47); Hemoglobin 13.6 g/dL (12.0-15.0); Lymphocyte # 1.52 X10^3/ul (0.83-4.51); Lymphocyte % 30.5 % (19-41); Mean Corp Hgb Conc 33.3 g/dL (32-36); Mean Corpuscular Hgb 30.6 pg (27.0-32.0); Mean Corpuscular Volume 91.7 fL (81-99); Mean Platelet Vol. 10.1 fl (6.2-12.0); Monocyte# 0.42 X10^3/uL; Monocyte% 8.4 % (0-10); NRBC Flagged by Analyzer 0 % (0-5); Neutrophil # 2.84 X10^3/uL (2.7-7.7); Neutrophil % 56.9 % (47-70); Platelet Count 218 K/mm3 (150-450); RBC Distribution Width CV 12.3 % (11.6-14.6); Red Blood Count 4.45 M/mm3 (4.2-5.4)
[2024-11-19 12:27] LABS: Hemoglobin A1c 5.5 % (<=5.6)
[2024-11-19 12:43] LABS: ALB/GLOB Ratio 1.8 RATIO (0.9-2.4); AST(SGOT) 31 U/L (<=31); Alanine Aminotransfer ALT/SGPT 39 U/L (<=34); Albumin, Serum 4.5 g/dL (3.4-4.8); Alkaline Phosphatase 114 U/L (35-104); Anion Gap 15 (5-15); BUN 28 mg/dL (4-19); BUN/Creat Ratio 32.7 RATIO (10-20); Calcium,Total 9.7 mg/dL (7.6-11.0); Carbon Dioxide 21.1 mmol/L (21.0-32.0); Chloride 104 mmol/L (98-108); Cholesterol 190 mg/dL (<=200); Creatinine, Serum 0.84 mg/dL (0.70-1.20); EST Glomerular Filtration Rate 76 (>60); Globulin 2.5 g/dL (2.2-4.2); Glucose 89 mg/dL (70-99); High Density Lipoprotein 76 mg/dL; Low Density Lipoprotein Calc. 90 mg/dL; Potassium 4.3 mmol/L (3.3-5.1); Sodium Level 139 mmol/L (133-145); Total Bilirubin 0.25 mg/dL (0.00-1.30); Triglycerides 122 mg/dL; Very Low Density Lipoprotein 24 mg/dL (5-40); cholesterol:hdl ratio screen 2.51
[2024-11-19 12:53] LABS: Magnesium 2.1 mg/dL (1.5-2.2); Uric Acid 4.1 mg/dL (2.6-6.0); Vitamin D,25 Hydroxy 36.7 ng/mL (30-100)
[2024-11-19 13:07] LABS: Iron 106 ug/dL (50-170)
[2024-11-19 13:11] LABS: Vitamin B12 2217 pg/mL (180-914)
== END | disposition home or self-care (01) ==
LOC: MTLAB 10:30
PROVIDERS: PCP Family Medicine; Referring Provider Family Medicine; Visit Provider Family Medicine
DX: E04.2 Nontoxic multinodular goiter (principal); E61.1 Iron deficiency; M10.9 Gout, unspecified; E55.9 Vitamin D deficiency, unspecified; Z98.84 Bariatric surgery status; Z51.81 Encounter for therapeutic drug level monitoring; E78.5 Hyperlipidemia, unspecified
CPT/HCPCS: 36415; 80053; 80061; 82306; 82607; 83036; 83540; 83735; 84439; 84443; 84550; 85025

== ENCOUNTER → 2024-11-26 | Outpatient (CLI) | payer MEDICARE, SELFPAY ==
--- NOTE | 2024-11-26 12:49 | BI_ITS ---
EXAM: PROCEDURE: MA Mammogram Digital Screen CLINICAL HISTORY: Screening COMPARISON: Mammogram studies dated 11/22/2023 and 10/18/2022 TECHNIQUE: A bilateral screening mammogram was obtained with MLO and CC views of both breasts with digital breast tomosynthesis. BREAST CANCER RISK ASSESSMENT: Does not appear to have been calculated. FINDINGS: No suspicious masses, suspicious calcifications or other suspicious mammogram findings are seen in either breast. Benign vascular calcifications and round calcifications are seen in the right breast. CONCLUSION: Right Breast: BI-RADS category 2, benign findings Left Breast: BI-RADS category 1, negative Breast Composition: The breasts are almost entirely fatty. Recommendation: Annual screening mammography Thank you for referring your patient to the [facility], if you have any questions, please call us at the performing site listed at the top of the report. [facility] , [facility] , [facility] and [facility] . Reading Location: [id number]
== END | disposition home or self-care (01) ==
LOC: OPBI 12:48
PROVIDERS: PCP Family Medicine; Referring Provider Family Medicine; Visit Provider Family Medicine
DX: Z12.31 Encounter for screening mammogram for malignant neoplasm of breast (principal)
CPT/HCPCS: 77063; 77067